=== PATIENT | female | born 1955 | race Caucasian/White ===

== ENCOUNTER 2022-09-15 08:45 | Emergency (ER) | payer MEDICARE, SELFPAY ==
--- NOTE | ~2022-09-15 | XR_ITS ---
EXAMINATION: XR CHEST CLINICAL INFORMATION: Cough COMPARISON: None available. TECHNIQUE: 2 views of the chest were obtained. FINDINGS: No significant abnormality is noted involving the heart, lungs, mediastinum, bony thorax or soft tissues. XR/XR chest 2V IMPRESSION: Unremarkable chest examination.
[2022-09-15 09:09] VITALS: BP 134/86; PULSE 91; RESP 19; TEMP 36.4; O2SAT 93; BMI 23.8
[2022-09-15 09:40] LABS: IDNOW Serial# 08D9AD1C; Strep A Nucleic Acid Negative (Negative)
[2022-09-15 10:06] LABS: Influenza A PCR NEGATIVE (Negative); Influenza B PCR NEGATIVE (Negative); Resp Syncy Virus RNA Qual PCR NEGATIVE (Negative); SARS COV2 PCR INHOUSE NEGATIVE (Negative)
--- NOTE | 2022-09-15 10:10 | ED.FEVER ---
HPI - Fever General Chief Complaint: Upper Respiratory Symptoms Stated Complaint: fever, sore throat Time Seen by Provider: 09/15/22 09:33 Source: patient Mode of arrival: ambulatory Limitations: no limitations History of Present Illness HPI Narrative: 66-year-old female with a history of COPD, tobacco smoking, hypertension presents to the ER with complaints of 1 week of sore throat, cough, body aches, subjective fevers, chills, headache and watery eye discharge bilaterally. No shortness of breath, chest pain, neck pain or neck stiffness. Related Data Home Medications Medication Instructions Recorded Confirmed hydrochlorothiazide 12.5 mg tablet 12.5 mg PO QAM 02/07/20 Previous Rx's Medication Instructions Recorded hydrochlorothiazide 12.5 mg tablet 12.5 mg PO QAM #90 tabs 06/07/20 albuterol sulfate 90 mcg/actuation 2 puff inhalation Q4-6H PRN 02/09/22 aerosol inhaler (ProAir HFA) shortness of breath or wheezing #1 ea azithromycin 250 mg tablet 250 mg PO DAILY 4 days #4 tabs 09/15/22 prednisone 20 mg tablet 60 mg PO DAILY #12 tabs 09/15/22 Allergies Allergy/AdvReac Type Severity Reaction Status Date / Time Penicillins [PENICILLINS] Allergy Severe THROAT Verified 09/15/22 09:09 SWELLING penicillin V Allergy Unknown throat Verified 09/15/22 09:09 swelling Review of Systems Review of Systems: Yes all other systems are reviewed and are negative Constitutional: Constitutional: Reports no additional constitutional complaints, Reports body ache(s), Reports chills, Reports fever(s), Reports headache(s) and Denies weakness Eyes: Eyes: Reports no additional eye complaints, Denies change in vision and Reports eye discharge ENT: Reports system reviewed and no additional complaints, except as documented, Denies dizziness, Reports headache(s), Denies nasal congestion, Denies nasal discharge, Denies neck pain and Reports sore throat Cardiovascular: Cardiovascular: Reports no additional cardiovascular complaints, Denies chest pain, Denies leg edema and Denies dyspnea Respiratory: Respiratory: Reports no additional respiratory complaints, Reports cough and Denies dyspnea Gastrointestinal: Gastrointestinal: Reports no additional gastrointestinal complaints, Denies abdominal pain, Denies diarrhea, Denies nausea and Denies vomiting Genitourinary: Genitourinary: Reports no additional female genitourinary complaints and Denies urinary incontinence Musculoskeletal: Musculoskeletal: Reports no additional musculoskeletal complaints, Denies back pain, Denies arthralgias, Denies joint swelling, Denies neck pain, Denies numbness and Denies tingling Integumentary/Breasts: Skin/Breast: Reports system reviewed and no additional complaints, except as docu and Denies rash Neurologic: Reports system reviewed and no additional complaints, except as documented, Denies Abnormal speech present, Denies dizziness, Reports headache(s), Denies numbness, Denies tingling and Denies weakness [facility] Past Medical History Attestation statement: The following information was validated with the patient. Source: old records reviewed and nursing notes reviewed Social History Social History Advance Directives: No Advance Directives Information Provided: Yes Physical Exam Vital Signs: Vital Signs: Last Vital Signs Temp 97.5 F 09/15/22 09:09 Pulse 91 09/15/22 09:09 Resp 19 09/15/22 09:09 BP 134/86 09/15/22 09:09 Pulse Ox 93 09/15/22 09:09 O2 Del Method Room Air 09/15/22 09:09 BMI result Body Mass Index 23.8 Const: General: cooperative, healthy appearing, comfortable and no acute distress Orientation/consciousness: patient oriented x3 Limitations: no limitations HEENT: Head: Yes normal to inspection Ears: hearing grossly normal bilaterally and TM's normal bilaterally General nose exam: Normal external nose present Face and sinus: Yes normal facial exam Mouth: Normal oral and palatal mucosa present Throat: Yes posterior oropharynx normal, Yes tonsils normal and Yes uvula midline Eyes: General: appearance normal, both eyes and all related structures Pupils: Equal, round and reactive pupils present Neck: Neck: Yes normal visual inspection, Yes full ROM, Yes no lymphadenopathy and Yes no meningeal signs Chest: Chest palpation & inspection: normal inspection of the chest Resp: Other: Mild expiratory wheezing Effort & Inspection: normal respiratory effort Cardio: Rate: regular rate Rhythm: regular rhythm Peripheral pulses: Peripheral pulses 2+ throughout GI: Inspection: Yes normal to inspection Palpation (GI): Soft to palpation and nontender Auscultation: normal bowel sounds Back/Spine/Pelvis: Thoracic/Lumbar Spine: thoracic and lumbar spine normal to inspection Skin: General skin exam: no rashes or lesions noted Neuro: General: patient oriented x3, no meningeal signs, no focal motor deficits and normal sensation to monofilament Cranial nerves: Yes Equal, round and reactive pupils present Cognition (Neuro): normal cognition Speech: No Abnormal speech present Gait exam (Neuro): Normal gait present Motor exam (neuro): 5/5 motor strength present throughout Extrem: General: Yes normal to inspection, Yes no pedal edema and Yes no calf tenderness Course Course Course Narrative: Testing for flu, COVID, strep were negative. Chest x-ray shows no acute pneumonia. Patient has mild expiratory wheezing on exam. She has a longstanding history of COPD and tobacco smoking. She may have bronchitis. Patient will be given albuterol MDI, course of prednisone and azithromycin. Reviewed worrisome signs and symptoms of when to return to the emergency room. Comfortable plan for discharge home. Medications Administered Discontinued Medications Generic Name Dose Route Start Last Admin Trade Name Freq PRN Reason Stop Dose Admin Albuterol Sulfate 2 puff 09/15/22 10:16 09/15/22 10:25 Albuterol Sulfate 90 Mcg 8 Gm Inhaler INHALE 09/15/22 10:17 2 puff ONCE ONE Administration Azithromycin 500 mg 09/15/22 10:16 09/15/22 10:24 Azithromycin 500 Mg Tablet PO 09/15/22 10:17 500 mg ONCE ONE Administration Prednisone 60 mg 09/15/22 10:16 09/15/22 10:24 Prednisone 20 Mg Tablet PO 09/15/22 10:17 60 mg ONCE ONE Administration Medical Decision Making Medical Decision Making [facility] Narrative: 66-year-old female with a history of COPD, tobacco smoking here with 1 week of cough, sore throat, subjective fevers, chills, headache, body aches, bilateral eye discharge supportive care at home. On exam patient mild expiratory wheezing. Exam otherwise is benign. Will send testing for flu, COVID, strep. Will check x-ray Differential Diagnosis Differential Diagnoses: The differential diagnosis associated with the presentation includes Bronchitis, pneumonia, influenza, viral syndrome, strep pharyngitis Low concern for meningitis, encephalitis, retropharyngeal abscess, epiglottitis, CALL CENTER SUPPORT CONSULTANT, PE-perc 0 Lab Data [facility] Lab Attestation statement: I reviewed the patient's lab results. Labs: Lab Results 09/15/22 09/15/22 Range/Units 09:22 09:22 Influenza Type A (PCR) NEGATIVE (Negative) Influenza Type B (PCR) NEGATIVE (Negative) RSV RNA Qual (PCR) NEGATIVE (Negative) SARS-CoV-2 RNA (RT-PCR) NEGATIVE (Negative) S. pyogenes GrpA MARTINA Negative (Negative) Independent Interpretation I performed an independent interpretation of an: Plain X-Ray Interpretation: I initially reviewed the x-ray and agree with radiologist's report Radiology Impression Discussion of test interpretation with radiology: I have reviewed the radiologist's reading. Radiologist Impression: [address] [address] XRay Report Signed Patient: Court Ha MR#: [id number] : 1955 Acct:[id number] Age/Sex: 66 / F ADM Date: 09/15/22 Loc: .ED Attending Dr: Ordering Physician: Generic ED Physician Date of Service: 09/15/22 Procedure(s): XR chest 2V Accession Number(s): [id number] cc: Generic ED Physician~ EXAMINATION: XR CHEST CLINICAL INFORMATION: Cough COMPARISON: None available. TECHNIQUE: 2 views of the chest were obtained. FINDINGS: No significant abnormality is noted involving the heart, lungs, mediastinum, bony thorax or soft tissues. XR/XR chest 2V IMPRESSION: Unremarkable chest examination. Discharge Plan Discharge Clinical Impression: Bronchitis Patient Disposition: Home, Self-Care Instructions: How to Use a Metered-Dose Inhaler (ED), Acute Bronchitis (ED) Additional Instructions: Testing for flu, COVID and strep are negative Your x-ray is normal Use the inhaler 2 puffs every 4 hours as needed for cough or wheezing Start your prednisone and azithromycin tomorrow Prescriptions: New azithromycin 250 mg tablet 250 mg PO DAILY 4 Days Qty: 4 0RF Rx Instructions: start on day 2 of therapy prednisone 20 mg tablet 60 mg PO DAILY Qty: 12 0RF No Action hydrochlorothiazide 12.5 mg tablet 12.5 mg PO QAM hydrochlorothiazide 12.5 mg tablet 12.5 mg PO QAM Qty: 90 1RF albuterol sulfate [ProAir HFA] 90 mcg/actuation HFA aerosol inhaler 2 puff inhalation Q4-6H PRN (Reason: shortness of breath or wheezing) Qty: 1 0RF Referrals: Lainer,Albert C, MD [Primary Care Provider] - 1 week
[2022-09-15] MEDS: predniSONE 20 MG TABLET 60 MG PO (10:24)
[2022-09-15] MEDS: Azithromycin 500 MG TABLET PO (10:24)
[2022-09-15] MEDS: Albuterol Sulfate 90 MCG 8 GM INHALER 2 PUFF INHALE (10:25)
== END 2022-09-15 10:30 | disposition home or self-care (01) ==
PROVIDERS: Emergency Provider Student in an Organized Health Care Education/Training Program; PCP Internal Medicine
DX: J40 Bronchitis, not specified as acute or chronic (principal); Z20.822 Contact with and (suspected) exposure to COVID-19; Z20.828 Contact with and (suspected) exposure to other viral communicable diseases; J02.9 Acute pharyngitis, unspecified
CPT/HCPCS: 0241U; 71046; 87651; 99282; 99284

== ENCOUNTER 2022-09-25 16:02 | Emergency (ER) | payer MEDICARE, SELFPAY ==
--- NOTE | ~2022-09-25 | XR_ITS ---
EXAMINATION: XR CHEST CLINICAL INFORMATION: Cough. COMPARISON: 09/15/2022 TECHNIQUE: 2 views of the chest were obtained. FINDINGS: The lungs are well expanded. No focal consolidation. No pleural effusion. Cardiac silhouette is unchanged. XR/XR chest 2V IMPRESSION: No acute abnormality.
[2022-09-25 16:04] VITALS: BP 159/82; PULSE 96; RESP 20; TEMP 36.2; O2SAT 96; BMI 24.0
--- NOTE | 2022-09-25 16:06 | ED.URI ---
HPI - URI/Sore Throat General Chief Complaint: Upper Respiratory Symptoms Stated Complaint: Bronchitis revisit/fever/cough Time Seen by Provider: 09/25/22 17:02 Source: patient Mode of arrival: ambulatory Limitations: no limitations History of Present Illness HPI Narrative: this is a 58-year-old female presenting to the emergency department for re-evaluation of upper respiratory symptoms, dry cough, fatigue, malaise, subjective fevers and chills, earache, diffuse headache without vision changes in dizziness, patient reports she was seen here on 09/15/2022 diagnosed with bronchitis discharge home with azithromycin and prednisone, initially had some relief however after she stopped taking these medications symptoms cameback. patient reports she is only feeling short of breath when she coughs however not at rest or with ambulation. Denies chest pain, nausea, vomiting, abdominal pain, vision changes, dizziness, weakness, changes in bowel habits. No sick contacts. Patient does report 2 weeks ago she had COVID-19 and was treated with Paxlovid NIHSS-0 Related Data Home Medications Medication Instructions Recorded Confirmed hydrochlorothiazide 12.5 mg tablet 12.5 mg PO QAM 02/07/20 Previous Rx's Medication Instructions Recorded hydrochlorothiazide 12.5 mg tablet 12.5 mg PO QAM #90 tabs 06/07/20 albuterol sulfate 90 mcg/actuation 2 puff inhalation Q4-6H PRN 02/09/22 aerosol inhaler (ProAir HFA) shortness of breath or wheezing #1 ea azithromycin 250 mg tablet 250 mg PO DAILY 4 days #4 tabs 09/15/22 prednisone 20 mg tablet 60 mg PO DAILY #12 tabs 09/15/22 albuterol sulfate 90 mcg/actuation 2 inh inhalation Q4-6H PRN 09/25/22 breath activated powder inhaler shortness of breath or wheezing #1 ea codeine 6.3 mg-guaifenesin 100 10 ml PO Q4-6H PRN cough #473 mL 09/25/22 mg/5 mL oral liquid doxycycline hyclate 100 mg capsule 100 mg PO BID 10 days #20 caps 09/25/22 prednisone 20 mg tablet 20 mg PO DAILY 5 days #5 tabs 09/25/22 Allergies Allergy/AdvReac Type Severity Reaction Status Date / Time Penicillins [PENICILLINS] Allergy Severe THROAT Verified 09/25/22 16:10 SWELLING penicillin V Allergy Unknown throat Verified 09/25/22 16:10 swelling Review of Systems Review of Systems: Constitutional : No Weight loss, + Fever, + Chills, + Fatigue, + Malaise ENT/Mouth : No sore throat, No Rhinorrhea, + ear pain Eyes: No Eye Pain, No Swelling, No Redness Cardiovascular : No Chest Pain, No SOB, No Dyspnea on Exertion, No Orthopnea, No Edema, No Palpitations Respiratory : + Cough, No Sputum, No Wheezing Gastrointestinal : No Nausea, No Vomiting, No Diarrhea, No Constipation, No abdominal Pain, No Hematochezia, No Melena Genitourinary : No Dysuria, No Urinary Frequency, No Hematuria, Musculoskeletal : No joint pain, No Myalgias, No Joint Swelling Skin : No Skin Lesions, No rash Neuro : No Weakness, No Numbness, No Dizziness, + Headache Psych : No Anxiety/Panic, No Depression Heme/Lymph: No Bruising, No Bleeding,No Lymphadenopathy Endocrine : No Polyuria, No Polydipsia All other systems reviewed and are negative Yes all other systems are reviewed and are negative [facility] Past Medical History Attestation statement: The following information was validated with the patient. Source: old records reviewed and nursing notes reviewed Physical Exam Vital Signs: Vital Signs: Last Vital Signs Temp 97.2 F 09/25/22 16:04 Pulse 96 09/25/22 16:04 Resp 20 09/25/22 16:04 BP 159/82 H 09/25/22 16:04 Pulse Ox 96 09/25/22 16:04 O2 Del Method Room Air 09/25/22 16:04 BMI result Body Mass Index 24.0 vss Appearance: Alert.? Oriented X3.? No acute distress.? Head: Normocephalic, atraumatic, no step-offs or deformities Eyes: Pupils equal, round and reactive to light.? ENT: Normal pharynx. EC and TM WNL b/l. No erythema, edema, effusions. No mastoid tenderness. Neck: full painless range of motion, no meningeal signs. CVS: Normal heart rate and rhythm.? Pulses normal.? Respiratory: No respiratory distress.? Breath sounds normal.? Abdomen: Soft and nontender.? Skin: Skin warm and dry.? Normal skin color.? Normal skin turgor.? Extremities: No lower extremity edema.? No calf ttp, negative amaris b/l. 5/5 strength to bilateral upper and lower extremities Neuro: Oriented X 3.? No motor deficit.? No sensory deficit. CN 2-12 intact. Normal auavct-ac-ccio, iwma-qr-bisb, steady tandem gait normal coordination. Course Course Course Narrative: RME: 66-year-old female with a history of COPD, tobacco smoking, hypertension, recently tx for Bronchitis in our ED on 09/15, finished course of Z-Kenrick and Prednisone w/little relief presents to the ED c/o left sided ear pain/clogged, subjective fever, productive cough, SOB x3 days TMs WNL, Lungs CTA, coarse cough noted on exam COVID/FLU, CXR ordered Full HPI, ROS and PE to be performed by primary ED provider. Reevaluation(s) Reevaluation #1: Chest x-ray unremarkable. COVID and influenza negative. Will treat patient for bacterial bronchitis with doxycycline and albuterol inhaler. No need for additional prednisone at this time. Patient is saturating well on room air 95% even after ambulation. Unlikely that this is PE. I suspect this is bronchitis. Educated patient on diagnosis and treatment plan, answered all question, patient verbalizes understanding. At this time patient will be discharged home, advised to return with new or worsening symptoms. Educated on worrisome signs and symptoms and when to return. At this time I feel comfortable discharge home. Time: 17:20 Medical Decision Making Medical Decision Making [facility] Narrative: 1704 66-year-old female presents for worsening cough, fatigue, malaise, earache, shortness of breath, headache, subjective fevers and chills, was treated with a Z-Kenrick, prednisone a few days ago with little to no relief. Physical examination benign. Likely bronchitis vs post covid . I do not suspect PE, patient not hypoxic, tachypneic or tachycardic, no significant risk factors. Unlikely pneumothorax, flail chest. No signs of acute respiratory distress. Unlikely typical presentation of ACS. Headache likely took focal headache, neuro nonfocal, unlikely stroke, posterior stroke, intracranial hemorrhage likely secondary to viral illness or bronchitis. No signs of malignant otitis, mastoiditis, otitis media or externa. No signs of meningitis or encephalitis. Plan at this time viral testing an x-ray. Differential Diagnosis Differential Diagnoses: The differential diagnosis associated with the presentation includes Likely bronchitis vs postt covid . I do not suspect PE, patient not hypoxic, tachypneic or tachycardic, no significant risk factors. Unlikely pneumothorax, flail chest. No signs of acute respiratory distress. Unlikely typical presentation of ACS. Headache likely took focal headache, neuro nonfocal, unlikely stroke, posterior stroke, intracranial hemorrhage likely secondary to viral illness or bronchitis. No signs of malignant otitis, mastoiditis, otitis media or externa. No signs of meningitis or encephalitis. Admission/Observation Consideration of admission/observation: Escalation of care including admission/observation considered Not indicated Lab Data MDM Lab Attestation statement: I reviewed the patient's lab results. Labs: Lab Results 09/25/22 09/25/22 Range/Units 16:21 16:21 COVID-19 (TARYN) Negative (Negative) COVID-19 Clin Com See Note Influenza Type A (MARTINA) Negative (Negative) Influenza Type B (MARTINA) Negative (Negative) Influenza A & B Note See Note Independent Interpretation I performed an independent interpretation of an: Plain X-Ray (XR/XR chest 2V IMPRESSION: No acute abnormality.) Radiology Impression Discussion of test interpretation with radiology: I have reviewed the radiologist's reading. Core Measures AMI core measures followed: Yes Measure exclusions: not indicated Critical Care Time Critical Care Time Critical Care Time: No Discharge Plan Discharge Clinical Impression: Bronchitis, Long COVID Patient Disposition: Home, Self-Care Instructions: Chronic Bronchitis (ED) Additional Instructions: Take your medications as prescribed. If you were prescribed antibiotics today, it is important that you take your medication to their entirety, do not skip any doses, do not finish them early. Follow-up with your primary care provider this week. Return to the emergency department with new or worsening symptoms. Such as fevers, chills, chest pain, shortness of breath, nausea, vomiting, dizziness, headache, vision changes, lethargy In case of emergency call 911 Prescriptions: New doxycycline hyclate 100 mg capsule 100 mg PO BID 10 Days Qty: 20 0RF albuterol sulfate 90 mcg/actuation aerosol powdr breath activated 2 inh inhalation Q4-6H PRN (Reason: shortness of breath or wheezing) Qty: 1 0RF codeine-guaifenesin 6.3-100 mg/5 mL liquid 10 ml PO Q4-6H PRN (Reason: cough) Qty: 473 0RF Rx Instructions: Partial fill upon request prednisone 20 mg tablet 20 mg PO DAILY 5 Days Qty: 5 0RF No Action hydrochlorothiazide 12.5 mg tablet 12.5 mg PO QAM hydrochlorothiazide 12.5 mg tablet 12.5 mg PO QAM Qty: 90 1RF albuterol sulfate [ProAir HFA] 90 mcg/actuation HFA aerosol inhaler 2 puff inhalation Q4-6H PRN (Reason: shortness of breath or wheezing) Qty: 1 0RF azithromycin 250 mg tablet 250 mg PO DAILY 4 Days Qty: 4 0RF Rx Instructions: start on day 2 of therapy prednisone 20 mg tablet 60 mg PO DAILY Qty: 12 0RF Referrals: [facility] [Provider Group] - 1 week Physician,Unknown J [Primary Care Provider] - 2 days
--- NOTE | 2022-09-25 16:22 | MHC.EDTECH ---
PATIENT FLU AND COVID SWAB COLLECTED AND SENT TO LAB .
[2022-09-25 16:49] LABS: IDNOW Serial# 16C4AD1C
[2022-09-25 16:50] LABS: COVID-19 Test Negative (Negative); Influenza A Negative (Negative); Influenza B2 Negative (Negative)
--- NOTE | 2022-09-25 17:24 | MHC.EDTECH ---
PATIENT WAS AMBULATED FOR O2 AMBULATION TRIAL .PATIENT WAS 95 PERCENT PRIOR AND 95 PERCENT AFTER AMBULATION.PATIENT HAD NO COMPLAINTS.
== END 2022-09-25 17:47 | disposition home or self-care (01) ==
LOC: HO.ED 17:42
PROVIDERS: Physician Assistant; Emergency Provider Emergency Medicine
DX: J40 Bronchitis, not specified as acute or chronic (principal); U09.9 Post COVID-19 condition, unspecified; Z20.822 Contact with and (suspected) exposure to COVID-19; F17.200 Nicotine dependence, unspecified, uncomplicated
CPT/HCPCS: 71046; 87502; 87635; 99282; 99283

== ENCOUNTER 2022-11-22 08:33 | Emergency (ER) | payer OTHER, SELFPAY ==
--- NOTE | ~2022-11-22 | XR_ITS ---
EXAMINATION: XR CHEST CLINICAL INFORMATION: Pain following fall COMPARISON: 09/25/2022 TECHNIQUE: Frontal view of the chest was obtained. FINDINGS: No significant abnormality is noted involving the heart, lungs, mediastinum, bony thorax or soft tissues. XR/XR chest 1V IMPRESSION: Unremarkable examination.
--- NOTE | ~2022-11-22 | CT_ITS ---
EXAMINATION: CT HEAD WITHOUT CONTRAST CT FACE WITHOUT CONTRAST CT CERVICAL SPINE WITHOUT CONTRAST CLINICAL INFORMATION: Fall. Facial trauma. Head injury. Neck pain. COMPARISON: CT head 12/07/2013. TECHNIQUE: Supervisory Historian images were obtained. CT imaging of the head, face, and cervical spinal was performed without contrast. Data was reformatted into multiplanar images at the acquisition workstation. This CT examination was performed using dose optimization techniques as appropriate, including one or more of the following: Automated exposure control, iterative reconstruction, and adjustment of technique factors (mA and/or kVp) according to patient size (this includes techniques or standardized protocols for targeted exams where dose is matched to indication/reason for exam). Fleischner Society criteria for the followup of incidental pulmonary nodules was implemented if appropriate. DLP: 1278 mGy-cm. FINDINGS: Head: There is no acute intracranial hemorrhage or abnormal extra-axial collection. 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 No acute intracranial hemorrhage or abnormal extra-axial collection. No intracranial mass effect or midline shift. Lateral and third ventricles are normal. No hydrocephalus. Sharif-white matter differentiation is preserved and there is no evidence of acute territorial infarct. Calvarium and skull base are intact. Mastoid air cells and middle ear cavities are well-aerated. Face: There is periorbital soft tissue swelling. No evidence of a retained radiodense foreign body. Nasal bones, zygomatic arches, and pterygoid processes are intact. No acute mandibular fracture. There is a retention cyst within the alveolar recess of the right maxillary sinus. Mild mucosal thickening within the maxillary sinuses and ethmoid air cells. Otherwise no active paranasal sinus disease. All of the major paranasal sinus drainage pathways are patent. The nasal septum deviates to the left. Globes and extraocular muscles are symmetric. No abnormal retrobulbar inflammation or hematoma. Cervical spine: There is slight anterolisthesis of C3 on C4 and C7 on T1 that appears related to facet degenerative changes at these levels. Alignment is otherwise normal. Vertebral heights are preserved. No acute cervical spine fracture. Grossly no spinal canal compromise. Visualized soft tissues of the neck are normal. Grossly no pathologically enlarged cervical lymph nodes. Lung apices are clear. CT/CT facial bones wo IV con IMPRESSION: There is periorbital soft tissue swelling. No acute facial fracture. No acute intracranial hemorrhage. There is no acute cervical spine fracture. There is multilevel degenerative spondylosis of the cervical spine with slight anterolisthesis of C3 on C4 and C7 on T1 related to facet degenerative changes at these levels.
--- NOTE | 2022-11-22 08:57 | ED_ITS ---
HPI - General Adult General Chief complaint: Fall Stated complaint: Facial Injury S/P Fall 11/20/22 Time Seen by Provider: 11/22/22 08:53 Source: patient Mode of arrival: ambulatory Limitations: no limitations History of Present Illness HPI narrative: 67 year old female medical history?COPD, tobacco smoking, hypertension, presents to the emergency department status post fall 2 days ago, patient and sure how she fell, she states she was leaving the bar after having 4 drinks, and she felt like her body was jellowy . She states she fell forward face planting, not on blood thinners, no loss of consciousness. Not experiencing any pain she states she was prompted to come in today because when she woke up and looked at her face she looked like she had raccoon eyes . She has no medical complaints. NIH stroke scale 0 GCS 15 Related Data Home Medications Medication Instructions Recorded Confirmed hydrochlorothiazide 12.5 mg tablet 12.5 mg PO QAM 02/07/20 Previous Rx's Medication Instructions Recorded hydrochlorothiazide 12.5 mg tablet 12.5 mg PO QAM #90 tabs 06/07/20 albuterol sulfate 90 mcg/actuation 2 puff inhalation Q4-6H PRN 02/09/22 aerosol inhaler (ProAir HFA) shortness of breath or wheezing #1 ea azithromycin 250 mg tablet 250 mg PO DAILY 4 days #4 tabs 09/15/22 prednisone 20 mg tablet 60 mg PO DAILY #12 tabs 09/15/22 albuterol sulfate 90 mcg/actuation 2 inh inhalation Q4-6H PRN 09/25/22 breath activated powder inhaler shortness of breath or wheezing #1 ea doxycycline hyclate 100 mg capsule 100 mg PO BID 10 days #20 caps 09/25/22 prednisone 20 mg tablet 20 mg PO DAILY 5 days #5 tabs 09/25/22 codeine 10 mg-guaifenesin 100 mg/5 5 ml PO Q6H PRN cough 3 days #60 mL 09/26/22 mL oral liquid Allergies Allergy/AdvReac Type Severity Reaction Status Date / Time Penicillins [PENICILLINS] Allergy Severe THROAT Verified 09/25/22 16:10 SWELLING penicillin V Allergy Unknown throat Verified 09/25/22 16:10 swelling Review of Systems Review of Systems: Constitutional : No Weight loss, No Fever, No Chills, No Fatigue, No Malaise ENT/Mouth : No sore throat, No Rhinorrhea Eyes: No Eye Pain, No Swelling, No Redness Cardiovascular : No Chest Pain, No SOB, No Dyspnea on Exertion, No Orthopnea, No Edema, No Palpitations Respiratory : No Cough, No Sputum, No Wheezing Gastrointestinal : No Nausea, No Vomiting, No Diarrhea, No Constipation, No abdominal Pain, No Hematochezia, No Melena Genitourinary : No Dysuria, No Urinary Frequency, No Hematuria, Musculoskeletal : No joint pain, No Myalgias, No Joint Swelling Skin : No Skin Lesions, No rash Neuro : No Weakness, No Numbness, No Dizziness, No Headache Psych : No Anxiety/Panic, No Depression All other systems reviewed and are negative Yes all other systems are reviewed and are negative [facility] Past Medical History Attestation statement: The following information was validated with the patient. Source: old records reviewed and nursing notes reviewed Social History Social History Advance Directives: No Advance Directives Information Provided: No Physical Exam ED Vital Signs: Vital Signs - 24 hr 11/22/22 08:59 Temperature 97.9 F Pulse Rate 82 Respiratory Rate 18 Blood Pressure 179/91 H Pulse Oximetry 94 Oxygen Delivery Method Room Air BMI result Body Mass Index 23.8 vss Appearance: Alert.? Oriented X3.? No acute distress.? Head: Normocephalic, atraumatic, no step-offs or deformities Eyes: Pupils equal, round and reactive to light.?+ b/l periorbital eccymosis w/ abrasions. EOMI pain free no signs of entrapment ENT: Pharynx normal.?+ abrasions to nose no nasalseptal hematoma Neck: Normal inspection.? Neck supple.? CVS: Normal heart rate and rhythm.? Pulses normal.? Respiratory: No respiratory distress.? Breath sounds normal.? Abdomen: Soft and nontender.? Skin: Skin warm and dry.? Normal skin color.? Normal skin turgor.? Extremities: No lower extremity edema.? No calf ttp. 5/5 strength to bilateral upper and lower extremities Neuro: Oriented X 3.? No motor deficit.? No sensory deficit. CN 2-12 intact Course Reevaluation(s) Reevaluation #1: Seventy CBC appears to be within normal limits. Chest x-ray unremarkable. EKG nonischemic. Chemistry pending. Facial scans pending. Time: 10:26 Reevaluation #2: Chemistry with no acute findings requiring intervention, bilirubin 1.6 likely secondary to alcohol abuse however no abdominal pain or tenderness to palpation on exam. Troponin negative, patient heart score of 1, EKG nonischemic unlikely ACS. History and physical exam not consistent with PE. Chest x-ray unremarkable. CT head, neck and facial bones significant for periorbital soft tissue swelling, no acute fractures. No acute intracranial hemorrhage. No acute cervical spine fractures. Degenerative spondylosis is noted of the cervical spine. Patient made aware of these findings. To be discharged home. Will give a Boostrix shot. Educated patient on diagnosis and treatment plan, answered all question, patient verbalizes understanding. At this time patient will be discharged home, advised to return with new or worsening symptoms. Educated on worrisome signs and symptoms and when to return. At this time I feel comfortable discharge home. Time: 10:46 Medications Administered Discontinued Medications Generic Name Dose Route Start Last Admin Trade Name Joy PRN Reason Stop Dose Admin Bacitracin 3 appl 11/22/22 09:18 11/22/22 10:04 Bacitracin Oint 0.9 Gm Packet TOPICAL 11/22/22 09:19 3 appl ONCE ONE Administration Protocol Diphtheria/Tetanus/Acell Pertussis 0.5 ml 11/22/22 10:44 11/22/22 10:54 Diphth,Pertus(Acell),Tet Adult 0.5 Ml Syringe IM 11/22/22 10:45 0.5 ml .ONCE ONE Administration Medical Decision Making Medical Decision Making [facility] Narrative: 0858 67-year-old female presents status post fall 2 days ago. No medical complaint Physical exam significant for b/l periorbital eccymosis w/ abrasions. EOMI pain free no signs of entrapment also noted to have abrasions to nose. Regular rate and rhythm. Lungs clear. Abdomen soft nontender, nondistended. GCS 15 NIH stroke scale 0. Will rule out traumatic injury to head, neck, facial bones. Unlikely traumatic injury to chest, abdomen or pelvis. Unlikely PE, ACS. Patient likely fell secondary to alcohol intoxication/mechanical fall. I do not suspect metabolic derangements however will rule out. Plan at this time will apply bacitracin to patient's face. Obtain it facial scans in head and neck scan. Also obtain basic labs. Differential Diagnosis Differential Diagnoses: The differential diagnosis associated with the presentation includes Will rule out traumatic injury to head, neck, facial bones. Unlikely traumatic injury to chest, abdomen or pelvis. Unlikely PE, ACS. Patient likely fell secondary to alcohol intoxication/mechanical fall. I do not suspect metabolic d erangements however will rule out. Admission/Observation Consideration of admission/observation: Escalation of care including admission/observation considered unlikely Lab Data MDM Lab Attestation statement: I reviewed the patient's lab results. 11/22/22 09:58 11/22/22 09:58 Labs: Lab Results 11/22/22 11/22/22 11/22/22 Range/Units 09:58 09:58 09:58 WBC 6.1 (4.8-10.8) X10*3/uL RBC 4.61 (4.20-5.50) X10*6/uL Hgb 14.7 (12.0-16.0) g/dl Hct 44.4 (37.0-47.0) % MCV 96.3 (80.0-98.0) fL MCH 31.9 (27.0-33.0) pg MCHC 33.1 (31.0-35.0) g/dl RDW 13.5 (11.0-16.0) % Plt Count 190 (160-400) X10*3/uL MPV 10.1 (9.4-12.3) fL Immature Gran % (Auto) 0.2 (0.0-0.4) % Neut % (Auto) 64.0 (45-73) % Lymph % (Auto) 25.4 (20-40) % [place] % (Auto) 9.1 (2-11) % Eos % (Auto) 1.0 (0-4) % Baso % (Auto) 0.3 (0-2) % Lymph # (Auto) 1.5 (1.2-4.9) X10*3/uL [place] # (Auto) 0.6 (0.1-1.2) X10*3/uL Eos # (Auto) 0.1 (0.0-0.4) X10*3/uL Baso # (Auto) 0.0 (0.0-0.2) X10*3/uL Abs Immat Gran (auto) 0.01 (0.00-0.03) X10*3/uL Absolute Neuts (auto) 3.9 (2.0-8.3) x10*3/uL Absolute Nucleated RBC 0.000 (0.0-0.012) X10*3/uL Nucleated RBC % (auto) 0.0 (0.0-0.2) /100WBC Sodium 144 (135-145) mmol/L Potassium 4.3 (3.3-5.1) mmol/L Chloride 109 H (96-108) mmol/L Carbon Dioxide 26 (22-29) mmol/L Anion Gap 13 (12-20) BUN 13 (9-16) mg/dL Creatinine 0.77 (0.5-1.4) mg/dL Estim Creat Clear Calc 67.0 Estimated GFR > 60 Random Glucose 128 H (60-115) mg/dL Calcium 9.1 (8.4-10.2) mg/dL Magnesium 2.0 (1.6-2.6) mg/dL Total Bilirubin 1.6 H (0.0-1.0) mg/dL AST 19 (5-31) U/L ALT 14 (0-31) U/L Alkaline Phosphatase 89 (39-117) U/L Troponin I High Sens < 2.7 (<3.5-17.0) ng/L Total Protein 6.6 (6.5-8.0) g/dL Albumin 4.0 (3.5-5.0) g/dL Urine Color Urine Appearance Urine pH (5.0-9.0) Ur Specific [place] (1.005-1.025) Urine Protein (Neg-Trace) mg/dL Urine Glucose (UA) (Negative) mg/dL Urine Ketones (Negative) mg/dL Urine Blood (Negative) Urine Nitrite (Negative) Ur Leukocyte Esterase (Negative) Urine RBC (0-2) /HPF Urine WBC (0-5) /HPF Ur Squamous Epith Cells (0-2) /HPF Urine Bacteria (None Seen) Hyaline Casts (0-2) /LPF 11/22/22 Range/Units 10:15 WBC (4.8-10.8) X10*3/uL RBC (4.20-5.50) X10*6/uL Hgb (12.0-16.0) g/dl Hct (37.0-47.0) % MCV (80.0-98.0) fL MCH (27.0-33.0) pg MCHC (31.0-35.0) g/dl RDW (11.0-16.0) % Plt Count (160-400) X10*3/uL MPV (9.4-12.3) fL Immature Gran % (Auto) (0.0-0.4) % Neut % (Auto) (45-73) % Lymph % (Auto) (20-40) % [place] % (Auto) (2-11) % Eos % (Auto) (0-4) % Baso % (Auto) (0-2) % Lymph # (Auto) (1.2-4.9) X10*3/uL [place] # (Auto) (0.1-1.2) X10*3/uL Eos # (Auto) (0.0-0.4) X10*3/uL Baso # (Auto) (0.0-0.2) X10*3/uL Abs Immat Gran (auto) (0.00-0.03) X10*3/uL Absolute Neuts (auto) (2.0-8.3) x10*3/uL Absolute Nucleated RBC (0.0-0.012) X10*3/uL Nucleated RBC % (auto) (0.0-0.2) /100WBC Sodium (135-145) mmol/L Potassium (3.3-5.1) mmol/L Chloride (96-108) mmol/L Carbon Dioxide (22-29) mmol/L Anion Gap (12-20) BUN (9-16) mg/dL Creatinine (0.5-1.4) mg/dL Estim Creat Clear Calc Estimated GFR Random Glucose (60-115) mg/dL Calcium (8.4-10.2) mg/dL Magnesium (1.6-2.6) mg/dL Total Bilirubin (0.0-1.0) mg/dL AST (5-31) U/L ALT (0-31) U/L Alkaline Phosphatase (39-117) U/L Troponin I High Sens (<3.5-17.0) ng/L Total Protein (6.5-8.0) g/dL Albumin (3.5-5.0) g/dL Urine Color Yellow Urine Appearance Clear Urine pH 6.0 (5.0-9.0) Ur Specific [place] 1.020 (1.005-1.025) Urine Protein 30 (1+) H (Neg-Trace) mg/dL Urine Glucose (UA) Negative (Negative) mg/dL Urine Ketones Negative (Negative) mg/dL Urine Blood Trace H (Negative) Urine Nitrite Negative (Negative) Ur Leukocyte Esterase Trace H (Negative) Urine RBC 6-10 H (0-2) /HPF Urine WBC 0-5 (0-5) /HPF Ur Squamous Epith Cells 11-20 (0-2) /HPF Urine Bacteria 1+ (None Seen) Hyaline Casts 0-2 (0-2) /LPF Independent Interpretation I performed an independent interpretation of an: EKG (Ventricular rate of 71, [place] normal, QRS normal, QT/QTC normal. EKG with sinus rhythm with premature ventricular complexes frequently, no ST elevations or inversions concerning for acute ischemia.), Plain X-Ray (XR/XR chest 1V IMPRESSION: Unremarkable exami nation. ) and CT Scan Radiology Impression Discussion of test interpretation with radiology: I have reviewed the radiologist's reading. Core Measures AMI core measures followed: Yes Measure exclusions: not indicated Critical Care Time Critical Care Time Critical Care Time: No Discharge Plan Discharge Clinical Impression: Concussion without loss of consciousness, Fall, Traumatic periorbital ecchymosis, Abrasion Patient Disposition: Home, Self-Care Instructions: Concussion (ED), Post Concussion Syndrome (ED), Fall Prevention (ED) Additional Instructions: Take your medications as prescribed. If you were prescribed antibiotics today, it is important that you take your medication to their entirety, do not skip any doses, do not finish them early. Follow-up with your primary care provider this week. Return to the emergency department with new or worsening symptoms. Such as fevers, chills, chest pain, shortness of breath, nausea, vomiting, dizziness, headache, vision changes, lethargy In case of emergency call 911 CT/CT head/brain & face & c spine wo IV con IMPRESSION: There is periorbital soft tissue swelling. No acute facial fracture. No acute intracranial hemorrhage. There is no acute cervical spine fracture. There is multilevel degenerative spondylosis of the cervical spine with slight anterolisthesis of C3 on C4 and C7 on T1 related to facet degenerative changes at these levels. XR/XR chest 1V IMPRESSION: Unremarkable examination. ? Prescriptions: No Action hydrochlorothiazide 12.5 mg tablet 12.5 mg PO QAM hydrochlorothiazide 12.5 mg tablet 12.5 mg PO QAM Qty: 90 1RF albuterol sulfate [ProAir HFA] 90 mcg/actuation HFA aerosol inhaler 2 puff inhalation Q4-6H PRN (Reason: shortness of breath or wheezing) Qty: 1 0RF azithromycin 250 mg tablet 250 mg PO DAILY 4 Days Qty: 4 0RF Rx Instructions: start on day 2 of therapy prednisone 20 mg tablet 60 mg PO DAILY Qty: 12 0RF doxycycline hyclate 100 mg capsule 100 mg PO BID 10 Days Qty: 20 0RF albuterol sulfate 90 mcg/actuation aerosol powdr breath activated 2 inh inhalation Q4-6H PRN (Reason: shortness of breath or wheezing) Qty: 1 0RF prednisone 20 mg tablet 20 mg PO DAILY 5 Days Qty: 5 0RF codeine-guaifenesin 10-100 mg/5 mL liquid 5 ml PO Q6H PRN (Reason: cough) 3 Days Qty: 60 0RF Referrals: Physician,None [Primary Care Provider] - 2 days Stand Alone Forms: Work/School Release Interventions: ED Discharge Assessment Last Done: 11/22/22 11:05
[2022-11-22 08:59] VITALS: BP 179/91; PULSE 82; RESP 18; TEMP 36.6; O2SAT 94; BMI 23.8
--- NOTE | 2022-11-22 09:18 | ECG_ITS ---
Test Reason : FALL Blood Pressure : / mmHG Vent. Rate : 071 BPM Atrial Rate : 071 BPM P-R Int : 156 ms QRS Dur : 092 ms QT Int : 408 ms P-R-T Axes : 061 030 072 degrees QTc Int : 443 ms Sinus rhythm with frequent Premature ventricular complexes Otherwise normal ECG When compared with ECG of 09-MAY-2019 10:18, Premature ventricular complexes are now Present Referred By: Michael Lopez Electronically Signed By:JOSETTE SWAN
[2022-11-22 10:04] LABS: MANUAL DIFF FLAG NO
[2022-11-22] MEDS: Bacitracin Oint 0.9 GM PACKET 3 APPL TOPICAL (10:04)
[2022-11-22 10:11] LABS: Basophils Percent Auto 0.3 % (0-2); Eosinophils Absolute Auto 0.1 X10*3/uL (0.0-0.4); Hematocrit 44.4 % (37.0-47.0); Hemoglobin 14.7 g/dl (12.0-16.0); Imm Gran Abs Auto 0.01 X10*3/uL (0.00-0.03); Imm Gran Pct Auto 0.2 % (0.0-0.4); Lymphocytes Absolute Auto 1.5 X10*3/uL (1.2-4.9); Lymphocytes Percent Auto 25.4 % (20-40); Mean Corpuscular HGB Conc 33.1 g/dl (31.0-35.0); Mean Corpuscular Hemoglobin 31.9 pg (27.0-33.0); Mean Corpuscular Volume 96.3 fL (80.0-98.0); Mean Platelet Volume 10.1 fL (9.4-12.3); Monocytes Absolute Auto 0.6 X10*3/uL (0.1-1.2); Monocytes Percent Auto 9.1 % (2-11); Neutrophils Absolute Auto 3.9 x10*3/uL (2.0-8.3); Platelet Count 190 X10*3/uL (160-400); Red Blood Count 4.61 X10*6/uL (4.20-5.50); Red Cell Distribution Width 13.5 % (11.0-16.0); White Blood Count 6.1 X10*3/uL (4.8-10.8)
[2022-11-22 10:23] LABS: Appearance Urine Clear; Color Urine Yellow; Glucose Urine UA Negative (Negative); Leukocyte Esterase Urine Trace (Negative); Nitrite Urine Negative (Negative); UMIC TRIGGER UACC YES; Urine Blood Trace (Negative); Urine Ketones Negative (Negative); Urine Protein 30 (1+) mg/dL (Neg-Trace)
[2022-11-22 10:29] LABS: Bacteria Urine 1+ (None Seen); Hyaline Casts Urine 0-2 /LPF (0-2); WBC Urine 0-5 /HPF (0-5)
[2022-11-22 10:34] LABS: Alanine Aminotransferase 14 U/L (0-31); Alkaline Phosphatase 89 U/L (39-117); Anion Gap 13 (12-20); Aspartate Amino Transferase 19 U/L (5-31); Bilirubin Total 1.6 mg/dL (0.0-1.0); Blood Urea Nitrogen 13 mg/dL (9-16); Calcium 9.1 mg/dL (8.4-10.2); Carbon Dioxide 26 mmol/L (22-29); Chloride 109 mmol/L (96-108); Estimated Glomerular Filt Rate > 60; Glucose Random 128 mg/dL (60-115); Potassium 4.3 mmol/L (3.3-5.1); Sodium 144 mmol/L (135-145); Total Protein 6.6 g/dL (6.5-8.0)
[2022-11-22 10:44] LABS: Troponin-I High Sensitivity < 2.7 ng/L (<3.5-17.0)
[2022-11-22] MEDS: Diphth,Pertus(ACell),Tet Adult 0.5 ML SYRINGE IM (10:54)
== END 2022-11-22 11:05 | disposition home or self-care (01) ==
PROVIDERS: Physician Assistant; Emergency Provider Emergency Medicine Emergency Medical Services
DX: S06.0X0A Concussion without loss of consciousness, initial encounter (principal); S00.81XA Abrasion of other part of head, initial encounter; R51.9 Headache, unspecified; R07.89 Other chest pain; M54.2 Cervicalgia; W01.10XA Fall on same level from slipping, tripping and stumbling with subsequent striking against unspecified object, initial encounter; Y93.9 Activity, unspecified; Y92.9 Unspecified place or not applicable; Y99.9 Unspecified external cause status; Z79.899 Other long term (current) drug therapy; Z23 Encounter for immunization
CPT/HCPCS: 36415; 70450; 70486; 71045; 72125; 80053; 81001; 83735; 84484; 85025; 90471; 90715; 93005; 99283; 99284

== ENCOUNTER 2023-12-05 18:38 | Emergency (ER) | payer OTHER, SELFPAY ==
--- NOTE | ~2023-12-05 | XR_ITS ---
EXAMINATION: XR CHEST CLINICAL INFORMATION: Cough. Shortness of breath. COMPARISON: Chest x-ray November 22, 2022 TECHNIQUE: Frontal view of the chest was obtained. FINDINGS: Lungs are clear. No pulmonary vascular congestion. There is no pleural effusion. The heart size is normal. The cardiac and mediastinal contours are normal. There are multilevel degenerative changes of dorsal spine. XR/XR chest 1V IMPRESSION: Unremarkable examination. Electronically signed by: Dima Galindo MD 12/05/2023 10:43 PM EDT
[2023-12-05 18:46] VITALS: BP 174/100; PULSE 98; RESP 18; TEMP 36.6; O2SAT 96; BMI 22.9
--- NOTE | 2023-12-05 18:46 | ECG_ITS ---
Test Reason : sob Blood Pressure : / mmHG Vent. Rate : 084 BPM Atrial Rate : 084 BPM P-R Int : 154 ms QRS Dur : 080 ms QT Int : 376 ms P-R-T Axes : 071 050 082 degrees QTc Int : 444 ms Normal sinus rhythm Normal ECG When compared with ECG of 22-NOV-2022 09:52, Premature ventricular complexes are no longer Present Referred By: Kerry Rea Electronically Signed By:JOSETTE SWAN
--- NOTE | 2023-12-05 18:46 | ED_ITS ---
HPI - General Adult General Chief complaint: Dyspnea Stated complaint: diff breathing Time Seen by Provider: 12/05/23 21:27 Source: patient Mode of arrival: ambulatory Limitations: no limitations History of Present Illness ED Provider: disha OLVERA narrative: Patient's history of COPD still a smoker complaining of increased shortness a breath cough for last few days getting worse cough is mostly dry no fever no chills no other family member sick Related Data Home Medications ?Medication ?Instructions ?Recorded ?Confirmed hydrochlorothiazide 12.5 mg tablet 12.5 mg PO QAM 02/07/20 Previous Rx's ?Medication ?Instructions ?Recorded hydrochlorothiazide 12.5 mg tablet 12.5 mg PO QAM #90 tabs 06/07/20 albuterol sulfate 90 mcg/actuation 2 puff inhalation Q4-6H PRN 02/09/22 aerosol inhaler (ProAir HFA) shortness of breath or wheezing #1 ea azithromycin 250 mg tablet 250 mg PO DAILY 4 days #4 tabs 09/15/22 prednisone 20 mg tablet 60 mg (3 x 20 mg) PO DAILY #12 tabs 09/15/22 albuterol sulfate 90 mcg/actuation 2 inh inhalation Q4-6H PRN 09/25/22 breath activated powder inhaler shortness of breath or wheezing #1 ea doxycycline hyclate 100 mg capsule 100 mg PO BID 10 days #20 caps 09/25/22 prednisone 20 mg tablet 20 mg PO DAILY 5 days #5 tabs 09/25/22 codeine 10 mg-guaifenesin 100 mg/5 5 ml PO Q6H PRN cough 3 days #60 mL 09/26/22 mL oral liquid albuterol sulfate 90 mcg/actuation 2 puff inhalation Q6H PRN 12/05/23 aerosol inhaler shortness of breath or wheezing #8.5 grams amlodipine 5 mg tablet 5 mg PO DAILY #90 tabs 12/05/23 azithromycin 250 mg tablet 250 mg PO DAILY 4 days #4 tabs 12/05/23 (Zithromax Z-Kenrick) benzonatate 200 mg capsule 200 mg PO TID PRN cough #30 caps 12/05/23 doxycycline hyclate 100 mg tablet 100 mg PO BID #20 tabs 12/05/23 prednisone 20 mg tablet 40 mg (2 x 20 mg) PO DAILY #10 tabs 12/05/23 Allergies Allergy/AdvReac Type Severity Reaction Status Date / Time Penicillins [PENICILLINS] Allergy Severe THROAT Verified 12/05/23 18:48 SWELLING penicillin V Allergy Unknown throat Verified 12/05/23 18:48 swelling Review of Systems 2 Review of Systems: Yes all other systems are reviewed and are negative [facility] Social History Social History Alcohol intake: current Alcohol intake frequency: a few times a week Alcohol type: beer and wine Smoked in Last 30 Days: Yes Use of substances other than those prescribed or required for medical reasons: Yes Substance Use Type: Marijuana Substance Use Frequency: Occasionally Advance Directives: No Advance Directives Information Provided: No Do you have a plan to hurt others: No Plan Physical Exam ED Vital Signs: Vital Signs - 24 hr 12/05/23 18:46 12/05/23 21:22 12/05/23 21:59 Temperature 97.8 F 98.1 F 98.0 F Pulse Rate 98 80 74 Respiratory Rate 18 18 15 Blood Pressure 174/100 H 170/103 H 175/96 H Pulse Oximetry 96 95 96 Oxygen Delivery Method Room Air Room Air Room Air 12/05/23 22:37 12/05/23 22:41 Temperature 98.3 F Pulse Rate 75 Respiratory Rate 16 Blood Pressure 184/99 H 184/99 H Pulse Oximetry 99 Oxygen Delivery Method Room Air BMI result Body Mass Index 22.9 Appearance: Alert. Oriented X3. No acute distress. Eyes: No pallor or icterus ENT: Pharynx normal. Oral Mucosa moist Neck: Normal inspection. Neck supple. CVS: Normal heart rate and rhythm. Pulses normal. Respiratory: No respiratory distress. Equal air entry bilateral, bilateral prolonged expiration no crackles Abdomen: Soft and nontender. Bowel sounds are present, no mass palpable, no CVA tenderness Skin: Skin warm and dry. Normal skin color. Normal skin turgor. Extremities: No lower extremity edema. No calf tenderness Neuro: Oriented X 3. Course Course Course Narrative: RME performed by Kerry Rea PA-C. Patient is a 68 year old assigned female at presenting to the emergency department with shortness of breath. Patient states she has been having increased difficulty breathing / shortness of breath over the last few days. Detailed physical exam and review of systems are deferred to the care clinician. EKG, labs, imaging, and swabs ordered. Patient placed back in the waiting room pending room availability and results. Medications Administered Discontinued Medications Generic Name Dose Route Start Last Admin Trade Name Joy PRN Reason Stop Dose Admin Albuterol Sulfate 4 puff 12/05/23 21:49 12/05/23 22:17 Albuterol Sulfate 90 Mcg 8 Gm Inhaler INHALE 12/05/23 21:50 4 puff ONCE ONE Administration Amlodipine Besylate 5 mg 12/05/23 22:35 12/05/23 22:37 Amlodipine Besylate 5 Mg Tablet PO 12/05/23 22:36 5 mg ONCE ONE Administration Protocol Azithromycin 500 mg 12/05/23 21:50 12/05/23 22:17 Azithromycin 500 Mg Tablet PO 12/05/23 21:51 500 mg ONCE ONE Administration Doxycycline Monohydrate 100 mg 12/05/23 21:51 12/05/23 22:17 Doxycycline Monohydrate 100 Mg Capsule PO 12/05/23 21:52 100 mg ONCE ONE Administration Guaifenesin/Codeine Phosphate 10 ml 12/05/23 21:49 12/05/23 22:17 Guaifen/Codeine Sf 200/20/10ml 10 Ml Liquid PO 12/05/23 21:50 10 ml ONCE ONE Administration Prednisone 60 mg 12/05/23 21:49 12/05/23 22:17 Prednisone 20 Mg Tablet PO 12/05/23 21:50 60 mg ONCE ONE Administration Medical Decision Making Medical Decision Making MDM Narrative: Patient is smoker with COPD stable as such will prescribe prednisone antibiotic inhaler Lab Data [facility] Lab Attestation statement: I reviewed the patient's lab results. 12/05/23 18:54 12/05/23 18:54 Labs: Lab Results 12/05/23 12/05/23 Range/Units 18:54 19:56 WBC 5.6 (4.8-10.8) X10*3/uL RBC 4.63 (4.20-5.50) X10*6/uL Hgb 15.0 (12.0-16.0) g/dl Hct 44.5 (37.0-47.0) % MCV 96.1 (80.0-98.0) fL MCH 32.4 (27.0-33.0) pg MCHC 33.7 (31.0-35.0) g/dl RDW 12.6 (11.0-16.0) % Plt Count 219 (160-400) X10*3/uL MPV 10.6 (9.4-12.3) fL Immature Gran % (Auto) 0.2 (0.0-0.4) % Neut % (Auto) 49.9 (45-73) % Lymph % (Auto) 39.3 (20-40) % Brooks % (Auto) 8.8 (2-11) % Eos % (Auto) 1.1 (0-4) % Baso % (Auto) 0.7 (0-2) % Lymph # (Auto) 2.2 (1.2-4.9) X10*3/uL Brooks # (Auto) 0.5 (0.1-1.2) X10*3/uL Eos # (Auto) 0.1 (0.0-0.4) X10*3/uL Baso # (Auto) 0.0 (0.0-0.2) X10*3/uL Abs Immat Gran (auto) 0.01 (0.00-0.03) X10*3/uL Absolute Neuts (auto) 2.8 (2.0-8.3) x10*3/uL Absolute Nucleated RBC 0.000 (0.0-0.012) X10*3/uL Nucleated RBC % (auto) 0.0 (0.0-0.2) /100WBC PT 9.8 L (11.1-13.3) SEC INR 0.8 L (0.9-1.1) APTT 30.3 (26.0-36.8) SEC Sodium 142 (135-145) mmol/L Potassium 4.2 (3.3-5.1) mmol/L Chloride 108 (96-108) mmol/L Carbon Dioxide 24 (22-29) mmol/L Anion Gap 14 (12-20) BUN 12 (9-16) mg/dL Creatinine 0.77 (0.5-1.4) mg/dL Estim Creat Clear Calc 66.0 Estimated GFR > 60 Random Glucose 134 H (60-115) mg/dL Calcium 9.5 (8.4-10.2) mg/dL Magnesium 2.0 (1.6-2.6) mg/dL Total Bilirubin 0.4 (0.0-1.0) mg/dL AST 15 (5-31) U/L ALT 12 (0-31) U/L Alkaline Phosphatase 84 (39-117) U/L Troponin I High Sens 3.8 (<3.5-17.0) ng/L Total Protein 6.8 (6.5-8.0) g/dL Albumin 4.2 (3.5-5.0) g/dL Urine Color Yellow Urine Appearance Clear Urine pH 6.5 (5.0-9.0) Ur Specific [place] 1.025 (1.005-1.025) Urine Protein Trace (Neg-Trace) mg/dL Urine Glucose (UA) Negative (Negative) mg/dL Urine Ketones Trace (Negative) mg/dL Urine Blood Trace H (Negative) Urine Nitrite Negative (Negative) Ur Leukocyte Esterase Negative (Negative) Urine RBC 11-20 H (0-2) /HPF Urine WBC 0-5 (0-5) /HPF Ur Squamous Epith Cells 0-2 (0-2) /HPF Urine Bacteria None Seen (None Seen) Hyaline Casts 0-2 (0-2) /LPF Influenza Type A (PCR) NEGATIVE (Negative) Influenza Type B (PCR) NEGATIVE (Negative) RSV RNA Qual (PCR) NEGATIVE (Negative) SARS-CoV-2 RNA (RT-PCR) NEGATIVE (Negative) Independent Interpretation I performed an independent interpretation of an: Plain X-Ray Interpretation: No infiltrate Discharge Plan Discharge Clinical Impression: Acute exacerbation of chronic obstructive airways disease Patient Disposition: Home, Self-Care Instructions: COPD (Chronic Obstructive Pulmonary Disease) (ED) Additional Instructions: Use albuterol inhaler as adv Take antibiotics and prednisone as prescribed Stop smoking Prescriptions: New albuterol sulfate 90 mcg/actuation HFA aerosol inhaler 2 puff inhalation Q6H PRN (Reason: shortness of breath or wheezing) Qty: 8.5 4RF azithromycin [Zithromax Z-Kenrick] 250 mg tablet 250 mg PO DAILY 4 Days Qty: 4 0RF Rx Instructions: start on day 2 of therapy benzonatate 200 mg capsule 200 mg PO TID PRN (Reason: cough) Qty: 30 0RF prednisone 20 mg tablet 40 mg PO DAILY Qty: 10 0RF doxycycline hyclate 100 mg tablet 100 mg PO BID Qty: 20 0RF amlodipine 5 mg tablet 5 mg PO DAILY Qty: 90 3RF No Action hydrochlorothiazide 12.5 mg tablet 12.5 mg PO QAM hydrochlorothiazide 12.5 mg tablet 12.5 mg PO QAM Qty: 90 1RF albuterol sulfate [ProAir HFA] 90 mcg/actuation HFA aerosol inhaler 2 puff inhalation Q4-6H PRN (Reason: shortness of breath or wheezing) Qty: 1 0RF azithromycin 250 mg tablet 250 mg PO DAILY 4 Days Qty: 4 0RF Rx Instructions: start on day 2 of therapy prednisone 20 mg tablet 60 mg PO DAILY Qty: 12 0RF doxycycline hyclate 100 mg capsule 100 mg PO BID 10 Days Qty: 20 0RF albuterol sulfate 90 mcg/actuation aerosol powdr breath activated 2 inh inhalation Q4-6H PRN (Reason: shortness of breath or wheezing) Qty: 1 0RF prednisone 20 mg tablet 20 mg PO DAILY 5 Days Qty: 5 0RF codeine-guaifenesin 10-100 mg/5 mL liquid 5 ml PO Q6H PRN (Reason: cough) 3 Days Qty: 60 0RF Interventions: ED Discharge Assessment Last Done: 12/05/23 22:41 Discharge Date/Time: 12/05/23 22:42 Print Language: Setswana
[2023-12-05 19:00] LABS: MANUAL DIFF FLAG NO
[2023-12-05 19:04] LABS: Basophils Percent Auto 0.7 % (0-2); Eosinophils Absolute Auto 0.1 X10*3/uL (0.0-0.4); Eosinophils Percent Auto 1.1 % (0-4); Hematocrit 44.5 % (37.0-47.0); Imm Gran Abs Auto 0.01 X10*3/uL (0.00-0.03); Imm Gran Pct Auto 0.2 % (0.0-0.4); Lymphocytes Absolute Auto 2.2 X10*3/uL (1.2-4.9); Lymphocytes Percent Auto 39.3 % (20-40); Mean Corpuscular HGB Conc 33.7 g/dl (31.0-35.0); Mean Corpuscular Hemoglobin 32.4 pg (27.0-33.0); Mean Corpuscular Volume 96.1 fL (80.0-98.0); Mean Platelet Volume 10.6 fL (9.4-12.3); Monocytes Absolute Auto 0.5 X10*3/uL (0.1-1.2); Monocytes Percent Auto 8.8 % (2-11); Neutrophils Absolute Auto 2.8 x10*3/uL (2.0-8.3); Neutrophils Percent Auto 49.9 % (45-73); Platelet Count 219 X10*3/uL (160-400); Red Blood Count 4.63 X10*6/uL (4.20-5.50); Red Cell Distribution Width 12.6 % (11.0-16.0); White Blood Count 5.6 X10*3/uL (4.8-10.8)
--- OUTSIDE RECORDS SUMMARY | 2023-12-05 19:04 | XMS_ITS | Continuity of Care Document ---
Author Organization [facility] Address [address] [place] [address]- Care Team Providers Care Rag Baler Name Role Phone Not on Staff, PCP Primary Care Physician Unavail able Encounter [facility] Date(s): 01/10/23 - 02/26/23 [facility] [address] [place], [place] [address] Attending Physician: Mandeep Arellano MD Admitting Physician: Mandeep Arellano MD Allergies, Adverse Reactions, Alerts Substance Reaction Severity Status penicillin ANAPHYLAXIS Active Medications acetaminophen-hydrocodone 325 mg-5 mg oral tablet See Instructions, PRN for pain, 1-2 tablet By Mouth Every 6 hours not to exceed 8 tablets/day, # 60tablet, 0 Refills, Maintenance, 09/06/14 8:17:22, Tablet Start Date: 09/06/14 Status: Ordered Aspirin = 81 mg, By Mouth, Daily, 0 Refills, Maintenance, 08/30/14 11:14:17 Start Date: 08/30/14 Status: Ordered Metoprolol = 25 mg, By Mouth, 2 times a day, 0 Refills, Maintenance, 08/30/14 11:13:42 Start Date: 08/30/14 Status: Ordered Problem List Condition Confirmation Course Effective Dates Status Health St at[facility] Informant HTN (hypertension) Confirmed Active Cerebral aneurysm Confirmed Active Social History Social History Type Response Smoking Status Current every day naila ta entered on: 04/12/14 Sex Patient Care team information Care Team Personnel Name: Joaquim Menjivar RN Position: S SN RN Member Role: Primary Care Nurse Name: Not on Staff, PCP Position: S Physician (General Medicine) Member Role: PCP Care Team Related Persons Name: RODRICK MCKAY Address: home [address] [place] [address] Name: CORWIN MCKAY Address: home [address] [place] [address]
--- OUTSIDE RECORDS SUMMARY | 2023-12-05 19:04 | XMS_ITS | Continuity of Care Document ---
Author Organization [facility] Address [address] [place] [address]- Care Team Providers Care Oracle E Business Developer Name Role Phone Not on Staff, PCP Primary Care Physician Unavail able Encounter [facility] Date(s): 01/27/23 - 02/26/23 [facility] Medicine [address] [place] [id number]- Attending Physician: Issa Almanzar Admitting Physician: AdmIssa garcia Referring Physician: AdmtrIssa Allergies, Adverse Reactions, Alerts Substance Reaction Severity [...] Team Personnel Name: Joaquim Menjivar RN Position: [facility] SN RN Member Role: Primary Care Nurse Name: Not on Staff, PCP Position: S Physician (General Medicine) Member Role: PCP Care Team Related Persons Name: RODRICK MCKAY Address: home [address] [place] [address] Name: CORWIN MCKAY Address: [address] [place] [address]
[2023-12-05 19:10] LABS: INTERNATIONAL NORM RATIO 0.8 (0.9-1.1); Prothrombin Time 9.8 SEC (11.1-13.3)
[2023-12-05 19:13] LABS: Partial Thromboplastin Time 30.3 SEC (26.0-36.8)
[2023-12-05 19:16] LABS: Alanine Aminotransferase 12 U/L (0-31); Albumin Level 4.2 g/dL (3.5-5.0); Alkaline Phosphatase 84 U/L (39-117); Anion Gap 14 (12-20); Aspartate Amino Transferase 15 U/L (5-31); Bilirubin Total 0.4 mg/dL (0.0-1.0); Blood Urea Nitrogen 12 mg/dL (9-16); Calcium 9.5 mg/dL (8.4-10.2); Carbon Dioxide 24 mmol/L (22-29); Chloride 108 mmol/L (96-108); Estimated Glomerular Filt Rate > 60; Glucose Random 134 mg/dL (60-115); Potassium 4.2 mmol/L (3.3-5.1); Sodium 142 mmol/L (135-145); Total Protein 6.8 g/dL (6.5-8.0)
[2023-12-05 19:23] LABS: Troponin-I High Sensitivity 3.8 ng/L (<3.5-17.0)
[2023-12-05 19:44] LABS: Influenza A PCR NEGATIVE (Negative); Influenza B PCR NEGATIVE (Negative); Resp Syncy Virus RNA Qual PCR NEGATIVE (Negative); SARS COV2 PCR INHOUSE NEGATIVE (Negative)
--- NOTE | 2023-12-05 19:56 | MHC.EDTECH ---
Urine sample obtained and sent to lab.
[2023-12-05 20:04] LABS: Appearance Urine Clear; Color Urine Yellow; Glucose Urine UA Negative (Negative); Leukocyte Esterase Urine Negative (Negative); Nitrite Urine Negative (Negative); PH 6.5 (5.0-9.0); Specific Gravity - Urine 1.025 (1.005-1.025); UMIC TRIGGER UACC YES; Urine Blood Trace (Negative); Urine Ketones Trace mg/dL (Negative); Urine Protein Trace mg/dL (Neg-Trace)
[2023-12-05 20:06] LABS: Bacteria Urine None Seen (None Seen); Hyaline Casts Urine 0-2 /LPF (0-2); Squamous Epithelial Cell Urine 0-2 /HPF (0-2); WBC Urine 0-5 /HPF (0-5)
[2023-12-05 21:22] VITALS: BP 170/103; PULSE 80; RESP 18; TEMP 36.7; O2SAT 95
[2023-12-05 21:59] VITALS: BP 175/96; PULSE 74; RESP 15; TEMP 36.7; O2SAT 96
[2023-12-05] MEDS: guaiFEN/Codeine SF 200/20/10ML 10 ML LIQUID PO (22:17)
[2023-12-05] MEDS: predniSONE 20 MG TABLET 60 MG PO (22:17)
[2023-12-05] MEDS: Azithromycin 500 MG TABLET PO (22:17)
[2023-12-05] MEDS: Albuterol Sulfate 90 MCG 8 GM INHALER 4 PUFF INHALE (22:17)
[2023-12-05] MEDS: Doxycycline Monohydrate 100 MG CAPSULE PO (22:17)
[2023-12-05 22:37] VITALS: BP 184/99
[2023-12-05] MEDS: amLODIPine Besylate 5 MG TABLET PO (22:37)
--- NOTE | 2023-12-05 22:39 | PC.NURSE ---
BP 184/99, P 75. Patient denies chest pain, headache, dyspnea resolved after use of Albuterol inhaler. Dr. Guzmán notified. Patient medicated with Amlodipine 5 mg PO at d/c and Rx for Amlodipine 5 mg PO daily sent to patient's pharmacy.
[2023-12-05 22:41] VITALS: BP 184/99; PULSE 75; RESP 16; TEMP 36.8; O2SAT 99
== END 2023-12-05 22:42 | disposition home or self-care (01) ==
PROVIDERS: Physician Assistant Medical; Emergency Provider Internal Medicine; PCP Internal Medicine
DX: J44.1 Chronic obstructive pulmonary disease with (acute) exacerbation (principal); R06.02 Shortness of breath; Z03.818 Encounter for observation for suspected exposure to other biological agents ruled out; R05.9 Cough, unspecified; F17.200 Nicotine dependence, unspecified, uncomplicated; F12.90 Cannabis use, unspecified, uncomplicated; Z79.899 Other long term (current) drug therapy
CPT/HCPCS: 0241U; 36415; 71045; 80053; 81001; 81003; 83735; 84484; 85025; 85610; 85730; 93005; 99284; 99285

== ENCOUNTER 2024-01-30 09:54 | Outpatient (REF) | payer OTHER, SELFPAY ==
[2024-01-30 15:24] LABS: Influenza A PCR NEGATIVE (Negative); Influenza B PCR NEGATIVE (Negative); Resp Syncy Virus RNA Qual PCR NEGATIVE (Negative); SARS COV2 PCR INHOUSE NEGATIVE (Negative)
== END 2024-01-30 09:55 | disposition home or self-care (01) ==
LOC: HO.LAB 09:54
PROVIDERS: PCP Nurse Practitioner Family; Visit Provider Nurse Practitioner Family
DX: J06.9 Acute upper respiratory infection, unspecified (principal); F17.210 Nicotine dependence, cigarettes, uncomplicated
CPT/HCPCS: 0241U; 99202

== ENCOUNTER 2024-01-30 09:54 | Outpatient (AMB) | payer MEDICARE, MEDICAID, SELFPAY ==
--- NOTE | 2024-01-30 09:59 | MHC.PC.OV ---
Intake Visit Reasons: fever, cough, congestion Intake Note: patient her c/o Fever, cough, and congestion [employer] Consultant Required: No Is last menstrual period known: No Post menopausal: No Patient : No Allergies Penicillins [PENICILLINS] Allergy (Severe, Verified 01/30/24 10:04) THROAT SWELLING penicillin V Allergy (Unknown, Verified 01/30/24 10:04) throat swelling Tobacco use date assessed: 01/30/24 Fall risk assessment: 1 Fall in past year Last assessed Fall Risk: 01/30/24 [facility] Social History Alcohol intake: current Alcohol intake frequency: a few times a week Alcohol type: beer and wine Substance Use Type: Marijuana Coding Assessment & Plan Assessment & Plan Medications: Discontinued azithromycin start on day 2 of therapy Discontinued Reason: Patient no longer taking 250 mg PO DAILY 4 tabs 0RF 4 days prednisone Discontinued Reason: Patient no longer taking 40 mg (2 x 20 mg) PO DAILY 10 tabs 0RF prednisone Discontinued Reason: Patient no longer taking 60 mg (3 x 20 mg) PO DAILY 12 tabs 0RF codeine-guaifenesin 10-100 mg/5 mL Discontinued Reason: Patient no longer taking 5 mL PO Q6H PRN 60 mL 0RF cough 3 days azithromycin (Zithromax Z-Kenrick) start on day 2 of therapy Discontinued Reason: Patient no longer taking 250 mg PO DAILY 4 tabs 0RF 4 days benzonatate Discontinued Reason: Patient no longer taking 200 mg PO TID PRN 30 caps 0RF cough doxycycline hyclate Discontinued Reason: Patient no longer taking 100 mg PO BID 20 tabs 0RF hydrochlorothiazide Discontinued Reason: Patient no longer taking 12.5 mg PO QAM 90 tabs 1RF albuterol sulfate 90 mcg/actuation (ProAir HFA) Discontinued Reason: Patient no longer taking 2 puffs inhalation Q4-6H PRN 1 ea 0RF shortness of breath or wheezing
--- NOTE | 2024-01-30 10:07 | AM.OFFWIN_ITS ---
Intake Vital Signs 01/30/24 10:08 Height 5 ft 7.25 in Weight 141 lb BMI 21.9 BP 140/86 H Blood Pressure Location Rt brachial Position Sitting Respiration 16 Pulse 86 Pulse Source Pulse Oximeter Temp 97.9 F Temp Source Oral Pulse Oximetry (%) 95 Oxygen Delivery Method Simple Mask Intake Visit Reasons: fever, cough, congestion Patient Tobacco Use Status: Current everyday Tobacco user Is last menstrual period known: No Post menopausal: No Patient : No Allergies Penicillins [PENICILLINS] Allergy (Severe, Verified 01/30/24 10:20) THROAT SWELLING penicillin V Allergy (Unknown, Verified 01/30/24 10:20) throat swelling Medication List - Last Reconciled 01/30/24 by Arianna Khan CNP albuterol sulfate 90 mcg/actuation 2 puffs inhalation Q6H PRN amlodipine 5 mg PO DAILY Do you need a note to return to daycare/school/sports/work: No HPI HPI Comments History of Present Illness Details 68 y/o female presents with c/o intermit tent productive cough with white phlegm, runny nose, fatigue. No constitutional symptoms. She notes wheezing which he attributes to history of COPD. She denies difficulty breathing or chest pain. She has not had viral testing. No sick contact. She has history of allergies and not on antihistamine. She smokes 3-4 cigarettes daily. [facility] Social History Alcohol intake: current Alcohol intake frequency: a few times a week Alcohol type: beer and wine Patient Tobacco Use Status: Current everyday Tobacco user Substance Use Type: Marijuana Patient : No Review of Systems Const Details: Denies chills, Denies fatigue, Denies fever(s), Denies headache(s) and Denies weakness HEENT Reports as per HPI Cardiac Denies chest pain, Denies claudication, Denies leg edema, Denies lightheadedness, Denies palpitations, Denies dyspnea, Denies dyspnea on exertion, Denies orthopnea and Denies other (Loss of consciousness) Resp Reports cough, Denies excessive phlegm production, Denies dyspnea, Denies dyspnea on exertion, Denies snoring and Denies wheezing Physical Exam Vital Signs: Last Vital Signs Temp 97.9 F 01/30/24 10:08 Pulse 86 01/30/24 10:08 Resp 16 01/30/24 10:08 BP 140/86 H 01/30/24 10:08 Pulse Ox 95 01/30/24 10:08 Oxygen Delivery Method Simple Mask 01/30/24 10:08 BMI result Body Mass Index 21.9 Const Other: General: comfortable and no acute distress Orientation/consciousness: patient oriented x3 HEENT Head is normocephalic Bilateral ear canal and TM are normal Nasal turbinates and oropharynx are pink and moist Sinuses are nontender with palpation No auricular or cervical lymphadenopathy Chest Chest palpation & inspection: normal inspection of the chest Resp Auscultation: Wheezing to lower base bilaterally Cardiac Palpation: normal PMI Heart sounds: S1 normal heart sound present, S2 normal heart sound present, no gallops, no murmur, no rubs Assessment & Plan Assessment & Plan (1) Viral upper respiratory illness: Code(s): J06.9 - Acute upper respiratory infection, unspecified Plan: Likely viral illness though possibly allergies. No exam evidence of bacterial infection Viral illness There is no antibiotic medication for viruses.? They must run their course.? Most average 5-7 days but 7-10 days is not uncommon and up to 14 days is still possible.? A cough is often the last symptom to resolve and this can last for weeks in some cases. Rest Hydrate well -? Drink plenty of fluids.? Especially water. Tylenol or ibuprofen for muscle aches, headache, fever/discomfort Cannot rule out COVID-19/RSV/Flu infection Nasal swab acquired and will be sent to the lab May take [facility] daily Return for new or worsening symptoms Verbalized understanding and agreed with treatment plan. Orders: Orders SARS-CoV2/FLU/RSV Today J06.9 - Acute upper respiratory infection, unspecified Medications: Discontinued azithromycin start on day 2 of therapy Discontinued Reason: Patient no longer taking 250 mg PO DAILY 4 days 4 tabs 0RF prednisone Discontinued Reason: Patient no longer taking 40 mg (2 x 20 mg) PO DAILY 10 tabs 0RF prednisone Discontinued Reason: Patient no longer taking 60 mg (3 x 20 mg) PO DAILY 12 tabs 0RF codeine-guaifenesin 10-100 mg/5 mL Discontinued Reason: Patient no longer taking 5 mL PO Q6H 3 days PRN 60 mL 0RF cough azithromycin (Zithromax Z-Kenrick) start on day 2 of therapy Discontinued Reason: Patient no longer taking 250 mg PO DAILY 4 days 4 tabs 0RF benzonatate Discontinued Reason: Patient no longer taking 200 mg PO TID PRN 30 caps 0RF cough doxycycline hyclate Discontinued Reason: Patient no longer taking 100 mg PO BID 20 tabs 0RF hydrochlorothiazide Discontinued Reason: Patient no longer taking 12.5 mg PO QAM 90 tabs 1RF albuterol sulfate 90 mcg/actuation (ProAir HFA) Discontinued Reason: Patient no longer taking 2 puffs inhalation Q4-6H PRN 1 ea 0RF shortness of breath or wheezing Coding Level of Care Code New Pt Level 3 (49176) Diagnoses Viral upper respiratory illness J06.9
[2024-01-30 10:08] VITALS: BP 140/86; PULSE 86; RESP 16; TEMP 36.6; O2SAT 95; BMI 21.9
== END 2024-01-30 16:23 | disposition home or self-care (01) ==
PROVIDERS: PCP Nurse Practitioner Family; Visit Provider Nurse Practitioner Family
DX: J06.9 Acute upper respiratory infection, unspecified (principal)

== ENCOUNTER 2024-05-13 13:57 | Outpatient (AMB) | payer MEDICARE, SELFPAY ==
--- NOTE | 2024-05-13 13:58 | MHC.PC.OV ---
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 Intake Note: new patient to [facility] care and also patients needs referral Rn Military Required: No Allergies Penicillins [PENICILLINS] Allergy (Severe, Verified 05/13/24 14:00) THROAT SWELLING penicillin V Allergy (Unknown, Verified 05/13/24 14:00) throat swelling Tobacco use date assessed: 05/13/24 Fall risk assessment: 1 Fall in past year (on a sidewalk) Last assessed Fall Risk: 05/13/24 Dental Screening Dental Screen Date: 05/13/24 Did you have a dental visit in the last 12 months?: No Did you have a dental problem in the last 6 months where you did not have access to dental care?: No Was dental information given to patient?: Patient has dentist HPI HPI Comments History of Present Illness Details This is a 68-year-old female with a past medical history of hypertension, tobacco use disorder, COPD and brain aneurysm presenting to [facility]. She is transferring from Dr. Martini. 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 She lives in [place]. Hypertension treated with amlodipine 5 mg daily. Previously she was on Lopressor, but she had side effects including fatigue and dizziness so it was discontinued. She walks her dog daily. Her blood pressure today is 139/78. She does not monitor at home. No headaches, dizziness, blurry vision. COPD-she was seen by Dr. Wu over 3 years ago. She started smoking at age 18 and quit at age 28. She started smoking again at age 48 and has continued. Currently smokes 3-4 cigarettes per day, but previously smoked half to a pack sometimes. She has an albuterol inhaler to use as needed. Typically requires this in fall and spring. She required prednisone 2 out of the 4 times that she had COVID. She has not required prednisone otherwise during the past 4-5 years. Denies hospital admissions for respiratory issues. Denies chronic cough, wheezing or shortness of breath. No hemoptysis. She had a chest x-ray in 12/19/2023 which was normal. In 2017 she had a brain aneurysm coiled. Dr. Billings did the surgery. She was lost to follow up because he left the practice, and her insurance lapsed. She was supposed to have neuroimaging and follow up once a year. She denies headaches, dizziness, vision changes, weakness, numbness. She does not plan to get further COVID boosters, but she will get the high-dose flu vaccine at her pharmacy. We discussed Prevnar 20 vaccination. She will think about this and says she will get it at the pharmacy if she decides to proceed. She is overdue for bone density, mammogram, annual gynecologic exam. Orders placed. She declines colonoscopy against my recommendation. Denies family history of colon cancer. She has never had a colonoscopy. Agreeable to Cologuard. Denies blood in stools, abdominal pain or diarrhea. ROS: Constitutional: No unexplained weight loss, fever, chills, fatigue or night sweats. Eyes: No vision changes, blurry vision, double vision, eye pain, eye redness, eye discharge. Respiratory: No shortness of breath, cough or sputum production. Cardiovascular: No chest pain, chest pressure or chest discomfort. No palpitations or pedal edema. Gastrointestinal: No anorexia, nausea, vomiting or diarrhea. No abdominal pain or blood in stool. Neurologic: No headache, dizziness, syncope, unilateral weakness, ataxia, numbness or tingling in the extremities. Psychiatric: No depression or anxiety. No SI/HI. Physical exam: Constitutional: Alert, in no distress. Neck: Supple, Full range of motion. No lymphadenopathy. Respiratory: Clear to auscultation. Cardiovascular: S1 S2 regular. No murmurs. No carotid bruits. Gastrointestinal: Abdomen soft, non-tender, non-distended. Normal bowel sounds. No palpable masses. Extremities: Warm and well perfused. No clubbing, cyanosis or edema. Psychiatric: Normal mood and affect [facility] Medical History (Updated 05/13/24 @ 14:54 by MEGHNA Delgado) Tobacco use Brain aneurysm Hypertension COPD (chronic obstructive pulmonary disease) Surgical History (Updated 05/13/24 @ 14:15 by Gia Siddiqi MA) Hx of coil occlusion of patent ductus arteriosus Family History (Updated 05/13/24 @ 14:17 by Gia Siddiqi MA) Father Hypertension Mother Hypertension Diabetes Cardiovascular disease Breast cancer Alcoholism Social History (Updated 05/13/24 @ 14:06 by Gia Siddiqi MA) Household Members: None Both parents involved: No Caregiver staying overnight: No Housing: Apartment Are you a primary care management specialist to a significant other at home: No Do you presently have visiting nurse or other home services: No 75 years or older and lives alone: No Alcohol intake: current Alcohol intake frequency: a few times a week Alcohol type: beer and wine Patient Tobacco Use Status: Current everyday Tobacco user Tobacco use type: Cigarette Cigarettes Per Day: 4 Years Smoked: 20 e-Cigarette/Vaping Use: Never Used Second Hand Smoke Exposure: No Substance Use Type: Marijuana service: No Current occupational status: retired Cognitive needs: No Hearing needs: No Vision needs: No Questionnaire PHQ-9 Over the last 2 weeks, how often have you been bothered by any of the following problems? 60441 - PHQ-9 Billing: Patient declined-do not bill Source: Developed by Drs. Pa Kat, Renu Dover, Akin Rose and colleagues, with an educational babar from [employer]. Thrive Questionnaire Date Thrive assessed: 05/13/24 I am a: Patient What is your living situation today?: I have a steady place to live Within the past 12 months, did the food you bought not last and you didn't have the money to get more?: Never true Within the past 12 months, did you worry whether your food would run out before you got money to buy more?: Never true Do you have trouble paying for medicines?: No Do you have trouble getting transportation to medical appointments?: No Do you have trouble paying your heating and electricity bill?: No Do you have trouble taking care of your child, family member or friend?: No Do you have trouble with day-to-day activities such as bathing, preparing meals, shopping, managing finances, etc.?: No Are you currently unemployed and looking for a job?: No Are you interested in more education?: No THRIVE Score: 0 AUDIT C Alcohol Use Questionnaire (AUDIT-C) 1. How often do you have a drink containing alcohol?: Never 3. How often do you have six or more drinks on one occasion?: Never Total Score: 0 JEVON-7 AMB Questionnaire JEVON-7 Date JEVON - 7 assessed: 05/13/24 Feeling nervous, anxious, or on edge: 0 = Not at all Not being able to stop or control worryin = Not at all Worrying too much about different things: 0 = Not at all Trouble relaxin = Not at all Being so restless that it is hard to sit still: 0 = Not at all Becoming easily annoyed or irritable: 0 = Not at all Feeling afraid as if something awful might happen: 0 = Not at all Total JEVON-7 score (0-4 normal; 5-9 mild; 10-14 moderate; 15-21 severe): 0 Source: Developed by Drs. Pa Kat, Renu Dover, Akin Rose and colleagues, with an educational babar from [employer]. JEVON-7 Assessment Billing JEVON-7 Assessment Tool: JEVON-7 Assessment 43690 Physical exam (Primary Care) Vital Signs: Last Vital Signs Temp 97.5 F 05/13/24 14:06 Pulse 86 05/13/24 14:06 Resp 12 05/13/24 14:06 BP 139/78 05/13/24 14:06 Pulse Ox 94 05/13/24 14:06 Oxygen Delivery Method Room Air 05/13/24 14:06 BMI result Body Mass Index 21.8 Tobacco/Smoking Status: Tobacco use Status Tobacco use date assessed 05/13/24 05/13/24 14:08 Patient Tobacco Use Status Current everyday Tobacco 05/13/24 14:06 Tobacco use type Cigarette 05/13/24 14:08 e-Cigarette/Vaping Use Never Used 05/13/24 14:08 Thrive Assessment: Date of Thrive Assessment Date Thrive assessed 05/13/24 05/13/24 14:00 Coding Level of Care Code Est Pt Level 5 (10635) Complex EM visit Add On G2211 Diagnoses COPD (chronic obstructive pulmonary disease) J44.9 Brain aneurysm I67.1 Hypertension I10 Tobacco use Z72.0 Additional Codes JEVON-7 Assessment Billing - JEVON-7 Assessment Tool: JEVON-7 Assessment 21411 ([id number]) Time Spent (min) 50 Comment Direct patient care, chart review, completing documentation Assessment & Plan Assessment & Plan (1) COPD (chronic obstructive pulmonary disease): Code(s): J44.9 - Chronic obstructive pulmonary disease, unspecified Category: Medical Plan: Patient currently asymptomatic. Continue albuterol 2 puffs every 4 hours as needed for coughing, wheezing or shortness of breath. Stressed the importance of smoking cessation. Patient is not prepared to quit at this time. PFT ordered. Refer to pulmonology. See above HPI regarding immunization. Recommended LDCT. She would like to review this with pulmonology and deferred ordered today. (2) Brain aneurysm: Code(s): I67.1 - Cerebral aneurysm, nonruptured Category: Medical Plan: I will place a referral to her neurosurgeon and contact his office so that I can put in orders for neuroimaging in anticipation of that visit. Smoking cessation advised. (3) Hypertension: Code(s): I10 - Essential (primary) hypertension Category: Medical Plan: Systolic BP mildly elevated today. Recommended decreasing sodium, caffeine and smoking cessation. Continue amlodipine and recheck at follow up visit. (4) Tobacco use: Code(s): Z72.0 - Tobacco use Category: Social Hx Plan: Strongly recommended smoking cessation. Discussed risks of tobacco use with the patient. Plan Follow up in 3 months. Orders: Orders Comprehensive Met. Panel Today I67.1 - Cerebral aneurysm, nonruptured, J44.9 - Chronic obstructive pulmonary disease, unspecified, Z13.6 - Encounter for screening for cardiovascular disorders TSH reflex Free T4 Today I67.1 - Cerebral aneurysm, nonruptured, J44.9 - Chronic obstructive pulmonary disease, unspecified, Z13.6 - Encounter for screening for cardiovascular disorders XR DEXA axial skeleton Today N95.1 - Menopausal and female climacteric states Complete Blood Count Auto Diff Today I67.1 - Cerebral aneurysm, nonruptured, J44.9 - Chronic obstructive pulmonary disease, unspecified, Z13.6 - Encounter for screening for cardiovascular disorders Lipid Panel Today I67.1 - Cerebral aneurysm, nonruptured, J44.9 - Chronic obstructive pulmonary disease, unspecified, Z13.6 - Encounter for screening for cardiovascular disorders MM screening mammo BI Today Z12.31 - Encounter for screening mammogram for malignant neoplasm of breast PFT pulmonary function test Today J44.9 - Chronic obstructive pulmonary disease, unspecified Referrals Cologuard Test Z12.11 - Encounter for screening for malignant neoplasm of colon, Z12.12 - Encounter for screening for malignant neoplasm of rectum FINAL ASSEMBLER Referral Z01.419 - Encounter for gynecological examination (general) (routine) without abnormal findings
--- OUTSIDE RECORDS SUMMARY | 2024-05-13 14:01 | XMS_ITS | Encounter Summary ---
Author Organization [facility] Address [address] [place] [address] Care Team Providers Care Catering Operations Manager Name Role Phone Mahi aGr Primary Care Provider Encounter Details Date Type Department Care Team (Late st Contact Info) Description 09/01/2018 Scanned Document [facility] [address] [facility] [address] [facility] [place] [address] Vasyl Billings MD [address] [place] [address] Social History Tobacco Use Types Packs/Day Years Used Date Smoking Tobacco: Never Assessed Comments Unknown Sex and Gender Information Value Date Recorded Sex Assigned at Not on file Legal Sex Female 11:09 AM EST Gender Identity Not on file Sexual Orientation Not on file documented as of this encounter Plan of Treatment Not on file documented as of this encounter Visit Diagnoses Not on filedocumented in this encounter Care Teams Catering Operations Manager Relationship Specialty Start Date End Date Mahi Gar PA [address] [place] [phone] PCP - General Otolaryngology 03/03/18 documented as of this encounter
--- OUTSIDE RECORDS SUMMARY | 2024-05-13 14:01 | XMS_ITS | Encounter Summary ---
Author Organization [facility] and [facility] Address [address] [place] [address] Care Team Providers Care Instructor Correspondence School Name Role Phone Mahi Gra Primary Care Provider [phone] Encounter Details Date Type Department Care Team (Late st Contact Info) Description 09/02/2018 Scanned Document [facility] [place] [address] [facility] [address] [place] [address] Vasyl Billings MD [address] [place] [address] Social History Tobacco Use Types Packs/Day Years Used Date Smoking Tobacco: Never Assessed Comments Unknown Sex and Gender Information Value Date Recorded Sex Assigned at Not on file Legal Sex Female 11:09 AM EST Gender Identity Not on file Sexual Orientation Not on file documented as of this encounter Plan of Treatment Not on file documented as of this encounter Procedures Procedure Name Priority Date/Time Associated Diagnosis Comments MRI RESULT SCAN Routine 09/02/2018 documented in this encounter Results * MRI Result Scan (09/02/2018) us Historical Provider IMG SCAN REPORTS Final Resul t documented in this encounter Visit Diagnoses Not on filedocumented in this encounter Care Teams Instructor Correspondence School Relationship Specialty Start Date End Date Mahi Gar PA [address] [place] [address] PCP - General Otolaryngology 03/03/18 documented as of this encounter
--- OUTSIDE RECORDS SUMMARY | 2024-05-13 14:01 | XMS_ITS | Encounter Summary ---
Author Organization [facility] and [facility] Address [address] [place] [address] Care Team Providers Care Green Jobs Trainer Name Role Phone Mahi Gar Primary Care Provider [phone] Encounter Details Date Type Department Care Team (Late st Contact Info) Description 09/01/2018 Scanned Document [facility] [address] [facility] [address] [facility] [place] [address] Vasyl Billings MD [address] [place] [address] Social History Tobacco Use Types [...] on filedocumented in this encounter Care Teams Green Jobs Trainer Relationship Specialty Start Date End Date Mahi Gar PA [address] [place] [phone] PCP - General Otolaryngology 03/03/18 documented as of this encounter
--- OUTSIDE RECORDS SUMMARY | 2024-05-13 14:01 | XMS_ITS | Encounter Summary ---
Author Organization [facility] and [facility] Address [address] [place] [address] Care Team Providers Care Shuttle Route Vehicle Operator Name Role Phone Mahi Gar Primary Care Provider Encounter Details Date Type Department Care Team (Late st Contact Info) Description 09/01/2018 Scanned Document [facility] [address] [facility] [address] [facility] [place] [address] Vasyl Billings MD [address] [place] [address] Social History Tobacco Use Types [...] on filedocumented in this encounter Care Teams Shuttle Route Vehicle Operator Relationship Specialty Start Date End Date Mahi Gar PA [address] [place] [phone] PCP - General Otolaryngology 03/03/18 documented as of this encounter
--- OUTSIDE RECORDS SUMMARY | 2024-05-13 14:01 | XMS_ITS | Encounter Summary ---
Author Organization [employer] Address [address] [facility] [address] [place] [address] Care Team Providers Care Glass Production Machine Operator Name Role Phone Unavailable Primary Care Provider Unavailabl e Reason for Visit * Reason Onset Date Comments New Patient 01/30/2023 Encounter Details Date Type Department Care Team (Late st Contact Info) Description 01/30/2023 Telephone [facility] [address] [place] [address] Dion Jovel MD [address] [place] [address] New Patient Social History Tobacco Use Types Packs/Day Years Used Date Smoking Tobacco: Never Assessed Comments Unknown Sex and Gender Information Value Date Recorded Sex Assigned at Female 01/30/2023 3:38 PM EDT Legal Sex Female 3:29 PM EDT Gender Identity Female 01/30/2023 3:38 PM EDT Sexual Orientation Not on file documented as of this encounter Miscellaneous Notes * Telephone Encounter - Azra Nunez - 01/30/2023 3:48 PM EDT Pt has been transfer over to wait list for AVIONICS MANAGER. EFFECTIVE SINCE 01/30/2023 documented in this encounter Plan of Treatment Not on file documented as of this encounter Visit Diagnoses Not on filedocumented in this encounter
--- OUTSIDE RECORDS SUMMARY | 2024-05-13 14:01 | XMS_ITS | Encounter Summary ---
Author Organization [facility] and [facility] Address [address] [place] [address] Care Team Providers Care Planning Coordinator Name Role Phone Mahi Gar Primary Care Provider Encounter Details Date Type Department Care Team (Late st Contact Info) Description 09/01/2018 Scanned Document [facility] [address] [facility] [address] [facility] [place] [address] Vasyl Billings MD [address] [place] [address] Social History Tobacco Use Types [...] on filedocumented in this encounter Care Teams Planning Coordinator Relationship Specialty Start Date End Date Mahi Gar PA [address] [place] [phone] PCP - General Otolaryngology 03/03/18 documented as of this encounter
--- OUTSIDE RECORDS SUMMARY | 2024-05-13 14:01 | XMS_ITS | Clinical Summary ---
Author Organization [employer] Address [address] [place] [address] [address] [place] [address] Care Team Providers Care Delivery Driver Name Role Phone Unavailable Primary Care Provider Unavailabl e Social History Tobacco Use Types Packs/Day Years Used Date Smoking Tobacco: Never Assessed Comments Unknown Sex and Gender Information Value Date Recorded Sex Assigned at Female 01/30/2023 3:38 PM EDT Legal Sex Female 3:29 PM EDT Gender Identity Female 01/30/2023 3:38 PM EDT Sexual Orientation Not on file Plan of Treatment Health Maintenance Due Date Last Done Comments CT Colonography 1953 Colonoscopy 1953 Colorectal Cancer Screening 1953 Depression Screening 1953 FIT DNA/Cologuard 1953 FIT 1953 FOBT 1953 SDOH Screening 1953 Sigmoidoscopy 1953 Alcohol/Substance Use Screening 1965 Tobacco Screening 1965 Hepatitis C Screening 10/29/1971 DTaP/Tdap/Td Vaccines (1 - Tdap) 1972 Mammogram 1993 Pneumococcal Vaccine: 50+ Ye ars (1 of 1 - PCV) 10/29/2003 Zoster Vaccines (1 of 2) 10/29/2003 COVID-19 Vaccine ( - 2023-2 5 season) 2023 Influenza Vaccine (#1) 2023 RSV Patients and Pa tients Aged 60 years or older (1 - 1-dose 75+ series) 2028 HIB Vaccines Aged Out No longer eligi ble based on patient's age to complete this topic HPV Vaccines Aged Out No longer eligi ble based on patient's age to complete this topic Hepatitis A Vaccines Aged Out No long er eligible based on patient's age to complete this topic Hepatitis B Vaccines Aged Out No long er eligible based on patient's age to complete this topic IPV Vaccines Aged Out No longer eligi ble based on patient's age to complete this topic Meningococcal Vaccine Aged Out No parrish elle eligible based on patient's age to complete this topic RSV under 20 months Aged Out No longe r eligible based on patient's age to complete this topic Rotavirus Vaccines Aged Out No longer eligible based on patient's age to complete this topic Insurance N PARTIAL
--- OUTSIDE RECORDS SUMMARY | 2024-05-13 14:01 | XMS_ITS | Encounter Summary ---
Author Organization [facility] and [facility] Address [address] [place] [address] Care Team Providers Care Golf Ball Trimmer Name Role Phone Mahi Gar Primary Care Provider [phone] Encounter Details Date Type Department Care Team (Late st Contact Info) Description 09/01/2018 Scanned Document [facility] at [address] [facility] [address] [facility] [place] [address] Vasyl Billings MD [address] [place] [phone] Social History Tobacco Use Types Packs/Day Years [...] Associated Diagnosis Comments MRI RESULT SCAN Routine 06/27/2018 MRI RESULT SCAN Routine 08/27/2016 MRI RESULT SCAN Routine 03/07/2015 documented in this encounter Results * MRI Result Scan (06/27/2018) us Historical Provider IMG SCAN REPORTS Final Resul t * MRI Result Scan (08/27/2016) us Historical Provider IMG SCAN REPORTS Final Resul t * MRI Result Scan (03/07/2015) us Historical Provider IMG SCAN REPORTS Final Resul t documented in this encounter Visit Diagnoses Not on filedocumented in this encounter Care Teams Golf Ball Trimmer Relationship Specialty Start Date End Date Mahi Gar PA [address] [place] [address] PCP - General Otolaryngology 03/03/18 documented as of this encounter
--- OUTSIDE RECORDS SUMMARY | 2024-05-13 14:01 | XMS_ITS | Encounter Summary ---
Author Organization [facility] and [facility] Address [address] [place] [address] Care Team Providers Care Blood Bank Specialist Name Role Phone Mahi Gar Primary Care Provider Encounter Details Date Type Department Care Team (Late st Contact Info) Description 09/08/2018 Scanned Document [facility] [place] [address] [facility] [address] [place] [address] Vasyl Billings MD [address] [place] [address] Social History Tobacco Use Types [...] on filedocumented in this encounter Care Teams Blood Bank Specialist Relationship Specialty Start Date End Date Mahi Gar PA [address] [place] [phone] PCP - General Otolaryngology 03/03/18 documented as of this encounter
--- OUTSIDE RECORDS SUMMARY | 2024-05-13 14:01 | XMS_ITS | Clinical Summary ---
Author Organization [address] Address [address] [place] [phone] Phone Care Team Providers Care Manager Property Name Role Phone Mahi Gar Primary Care Provider Allergies Active Allergy Reactions Criticality Noted Date Comments Environmental Allergies 10/12/2018 Medications hydroCHLOROthiaz vance (HYDRODIURIL) 12.5 MG tablet TK 1 T PO QAM 6 09/11/2018 Active aspirin 81 MG EC tablet Take 81 mg by mouth daily. 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 09/05/14 Family History Medical History Relation Name Comments Heart attack Father Breast cancer Mother Emphysema Mother Osteoporosis Mother Hypertension Other Relation Name Status Comments Father Mother Other Social History Tobacco Use Types Packs/Day Years Used Date Smoking Tobacco: Every Day Smokeless Tobacco: Never Alcohol Use Standard Drinks/Week Comments Yes 0 (1 standard drink = 0.6 oz pur e alcohol) Comments Unknown Sex and Gender Information Value Date Recorded Sex Assigned at Not on file Legal Sex Female 11:09 AM EST Gender Identity Not on file Sexual Orientation Not on file Last Filed Vital Signs Vital Sign Reading Time Taken Comments Blood Pressure 118/82 10/12/2018 1:05 PM EDT Pulse - - Temperature - - Respiratory Rate - - Oxygen Saturation - - Inhaled Oxygen Concentration - - Weight 68.2 kg (150 lb 6.4 oz) 10/12/2018 1:05 P M EDT Height 170.2 cm (5' 7 ) 10/12/2018 1:05 PM EDT Body Mass Index 23.56 10/12/2018 1:05 PM EDT Plan of Treatment Health Maintenance Due Date Last Done Comments HIV screening 1966 Hepatitis C screening 10/29/1971 Tetanus adult (Td q 10,TDAP once) 1973 Breast cancer screening 1993 Lipid disorder screening 1993 Colon cancer screening, Colonoscopy 1998 Diabetes screening 1998 Shingles vaccine (Shingrix) (1 of 2 - Shingrix (RZV) 2 Dose Standard Series) 10/29/2003 Osteoporosis screening (bone density) 2018 Pneumo Vaccine 65+ (1 of 1 - PCV) 2018 Influenza vaccine 10/30/2023 Covid-19 vaccine series (1 - 2023-25 season) 2023 RSV Discussion (1 - 1-dose 7 5+ series) 2028 Cervical cancer screening Discontinued Meningococcal Vaccine Aged Out No parrish elle eligible based on patient's age to complete this topic Care Teams Manager Property Relationship Specialty Start Date End Date Mahi Gar PA [address] [place] [phone] PCP - General Otolaryngology 03/03/18
--- OUTSIDE RECORDS SUMMARY | 2024-05-13 14:01 | XMS_ITS | Encounter Summary ---
Author Organization [facility] Address [address] [place] [address] Care Team Providers Care Sand Drier Name Role Phone Mahi Gar Primary Care Provider Encounter Details Date Type Department Care Team (Late st Contact Info) Description 09/01/2018 Scanned Document [facility] [address] [facility] 800 [facility] [place] [address] Vasyl Billings MD 800 [place] [address] Social History Tobacco Use Types [...] on filedocumented in this encounter Care Teams Sand Drier Relationship Specialty Start Date End Date Mahi Gar PA 1 [place] [phone] PCP - General Otolaryngology 03/03/18 documented as of this encounter
--- OUTSIDE RECORDS SUMMARY | 2024-05-13 14:01 | XMS_ITS | Encounter Summary ---
Author Organization [facility] Address [address] [place] [address] Care Team Providers Care Screen Tender Helper Name Role Phone Mahi Gar Primary Care Provider Encounter Details Date Type Department Care Team (Late st Contact Info) Description 09/27/2019 Abstract [facility] at [address] [address] Vasyl Billings MD 800 [place] [phone] Social History Tobacco Use Types Packs/Day Years [...] on filedocumented in this encounter Care Teams Screen Tender Helper Relationship Specialty Start Date End Date Mahi Gar PA 1 [place] [phone] PCP - General Otolaryngology 03/03/18 documented as of this encounter
[2024-05-13 14:06] VITALS: BP 139/78; PULSE 86; RESP 12; TEMP 36.4; O2SAT 94; BMI 21.8
== END 2024-05-13 14:44 | disposition home or self-care (01) ==
PROVIDERS: PCP Nurse Practitioner Family; Visit Provider Physician Assistant Medical
DX: J44.9 Chronic obstructive pulmonary disease, unspecified (principal); I67.1 Cerebral aneurysm, nonruptured; I10 Essential (primary) hypertension; Z72.0 Tobacco use

== ENCOUNTER → 2024-05-13 13:57 | Outpatient (BNVA) | payer MEDICARE, MEDICAID, SELFPAY | PROVIDERS: PCP Nurse Practitioner Family; Visit Provider Physician Assistant Medical | DX: J44.9 Chronic obstructive pulmonary disease, unspecified (principal); I67.1 Cerebral aneurysm, nonruptured; I10 Essential (primary) hypertension; Z72.0 Tobacco use | CPT/HCPCS: 96127; 99212 ==

== ENCOUNTER 2024-06-22 13:56 | Outpatient (REF) | payer MEDICARE, SELFPAY ==
--- NOTE | ~2024-06-22 | MM_ITS ---
EXAMINATION: DXA BONE DENSITY AXIAL HISTORY: Estrogen deficiency TECHNIQUE: Geogoer Dual energy absorptiometry (DEXA) of the lumbar spine, total left hip, and femoral neck was performed. COMPARISON: Comparison is made with the prior examination dated 05/13/2014. FINDINGS: The bone mineral density of the lumbar spine is 1.216 with a T-score of 0.4, and a Z-score of 2.1. This is indicative of normal bone mineral density. This represents a BMD change of 25.4% compared to the prior exam. This is statistically significant. The bone mineral density of the left total hip is 0.906 with a T-score of -0.8, and a Z-score of 0.7. This is indicative of normal bone mineral density. This represents a BMD change of 1.0% compared to the prior exam. This is not statistically significant. The bone mineral density of the left femoral neck is 0.914 with a T-score of -0.9, and a Z-score of 0.9. This is indicative of normal bone mineral density. This represents a BMD change of -0.4% compared to the prior exam. FRACTURE RISK: The FRAX index suggests a ten year probability of major osteoporotic fracture of 8.0%, and of hip fracture 1.4%. MM/XR DEXA axial skeleton IMPRESSION: Based on bone mineral density, and according to World Health Organization (WHO) criteria, the diagnosis is consistent with normal bone mineral density. All bone density values are in grams per centimeter squared (g/cm2). Statistically, 68% of repeat scans fall within 1 SD (+/- 0.010 g/cm2 for AP spine L1-L4) and 1 SD (+/- 0.012 g/cm2 for femur total) FRAX is a trademark of the [employer]'s [place] [employer] Metabolic Bone Disease, a World Health Organization (WHO) Collaborating Center. Electronically signed by: Pa Menjivar MD 06/22/2024 03:25 PM EDT
--- OUTSIDE RECORDS SUMMARY | 2024-06-22 17:20 | XMS_ITS | Encounter Summary ---
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 EFFECTIVE SINCE 01/30/2023 documented in this encounter Plan of Treatment Not on file documented as of this encounter Visit Diagnoses Not on filedocumented in this encounter
--- OUTSIDE RECORDS SUMMARY | 2024-06-22 17:20 | XMS_ITS | Encounter Summary ---
Author Organization [facility] Address [address] [place] [address] Care Team Providers Care Chief Bank Examiner Name Role Phone Mahi Gar Primary Care Provider Encounter Details Date Type Department Care Team (Late st Contact Info) Description 09/01/2018 Scanned Document [facility] at [address] [facility] [address] [facility] [place] [address] Vasyl Billings MD [address] [place] [address] Social History Tobacco Use Types [...] on filedocumented in this encounter Care Teams Chief Bank Examiner Relationship Specialty Start Date End Date Mahi Gar PA 1 [place] [phone] PCP - General Otolaryngology 03/03/18 documented as of this encounter
--- OUTSIDE RECORDS SUMMARY | 2024-06-22 17:20 | XMS_ITS | Encounter Summary ---
Author Organization [facility] Address 20 [place] [address] Care Team Providers Care Corporate Coordinator Name Role Phone Mahi Gar Primary Care Provider Encounter Details Date Type Department Care Team (Late st Contact Info) Description 09/01/2018 Scanned Document [facility] at [address] [facility] [address] [facility] [place] [address] Vasyl Billings MD [address] [place] [address] Social History Tobacco Use Types [...] on filedocumented in this encounter Care Teams Corporate Coordinator Relationship Specialty Start Date End Date Mahi Gar PA 1 [place] [phone] PCP - General Otolaryngology 03/03/18 documented as of this encounter
--- OUTSIDE RECORDS SUMMARY | 2024-06-22 17:20 | XMS_ITS | Encounter Summary ---
Author Organization [facility] Address 20 [place] [address] Care Team Providers Care Production Team Member Name Role Phone Mahi Gar Primary Care Provider Encounter Details Date Type Department Care Team (Late st Contact Info) Description 09/08/2018 Scanned Document [facility] [place] [address] [facility] [address] [place] [address] Vasyl Billings MD [address] [place] [address] Social History Tobacco Use Types [...] on filedocumented in this encounter Care Teams Production Team Member Relationship Specialty Start Date End Date Mahi Gar PA 1 [place] [phone] PCP - General Otolaryngology 03/03/18 documented as of this encounter
--- OUTSIDE RECORDS SUMMARY | 2024-06-22 17:20 | XMS_ITS | Clinical Summary ---
Author Organization [address] Address [address] [place] [phone] Phone Care Team Providers Care Nitriles Lab Technician Name Role Phone Mahi Gar Primary Care Provider [phone] Allergies Active Allergy Reactions Criticality Noted Date [...] Series) 10/29/2003 Osteoporosis screening (bone density) 2018 Pneumococcal Vaccine (50+ ye ars) (1 of 1 - PCV) 2018 Influenza vaccine 10/30/2023 Covid-19 vaccine series (1 - 2023-25 season) 2023 RSV Immunization (1 - 1-dose 75+ series) 2028 Cervical cancer screening Discontinued Meningococcal Vaccine Aged Out No parrish elle eligible based on patient's age to complete this topic Care Teams Nitriles Lab Technician Relationship Specialty Start Date End Date Mahi Gar PA [address] [place] [phone] PCP - General Otolaryngology 03/03/18
--- OUTSIDE RECORDS SUMMARY | 2024-06-22 17:20 | XMS_ITS | Encounter Summary ---
Author Organization [facility] Address 20 [place] [address] Care Team Providers Care Cyber Reverse Engineer Name Role Phone Mahi Gar Primary Care Provider [phone] Encounter Details Date Type Department Care Team (Late st Contact Info) Description 09/01/2018 Scanned Document [facility] at [address] [facility] [address] [facility] [place] [address] Vasyl Billings MD 800 [place] [address] Social History Tobacco Use Types [...] on filedocumented in this encounter Care Teams Cyber Reverse Engineer Relationship Specialty Start Date End Date Mahi Gar PA 1 [place] [phone] PCP - General Otolaryngology 03/03/18 documented as of this encounter
--- OUTSIDE RECORDS SUMMARY | 2024-06-22 17:20 | XMS_ITS | Encounter Summary ---
Author Organization [facility] Address 20 [place] [address] Care Team Providers Care Manager Services Name Role Phone Mahi Gar Primary Care Provider Encounter Details Date Type Department Care Team (Late st Contact Info) Description 09/01/2018 Scanned Document [facility] at 800 [facility] 800 [facility] [place] [address] Vasyl Billings MD [address] [place] [address] Social History Tobacco Use Types [...] on filedocumented in this encounter Care Teams Manager Services Relationship Specialty Start Date End Date Mahi Gar PA 1 [place] [phone] PCP - General Otolaryngology 03/03/18 documented as of this encounter
--- OUTSIDE RECORDS SUMMARY | 2024-06-22 17:20 | XMS_ITS | Encounter Summary ---
Author Organization [facility] Address 20 [place] [address] Care Team Providers Care Psych Tech Name Role Phone Mahi Gar Primary Care Provider Encounter Details Date Type Department Care Team (Late st Contact Info) Description 09/01/2018 Scanned Document [facility] at 800 [facility] 800 [facility] [place] [address] Vasyl Billings MD 800 [place] [phone] Social History Tobacco Use Types Packs/Day Years [...] on filedocumented in this encounter Care Teams Psych Tech Relationship Specialty Start Date End Date Mahi Gar PA 1 [place] [address] PCP - General Otolaryngology 03/03/18 documented as of this encounter
--- OUTSIDE RECORDS SUMMARY | 2024-06-22 17:20 | XMS_ITS | Clinical Summary ---
Author Organization [employer] Address [address] [place] [address] 7t [place] [address] Care Team Providers Care Fac Engineer Name Role Phone Unavailable Primary Care Provider [...]
--- OUTSIDE RECORDS SUMMARY | 2024-06-22 17:20 | XMS_ITS | Encounter Summary ---
Author Organization [facility] Address 20 [place] [address] Care Team Providers Care Painting Instructor Name Role Phone Mahi Gar Primary Care Provider [phone] Encounter Details Date Type Department Care Team (Late st Contact Info) Description 09/02/2018 Scanned Document [facility] [place] [address] [facility] [address] [place] [address] Vasyl Billings MD 800 [place] [address] Social History Tobacco Use Types [...] on filedocumented in this encounter Care Teams Painting Instructor Relationship Specialty Start Date End Date Mahi Gar PA 1 [place] [address] PCP - General Otolaryngology 03/03/18 documented as of this encounter
--- OUTSIDE RECORDS SUMMARY | 2024-06-22 17:20 | XMS_ITS | Encounter Summary ---
Author Organization [facility] Address [address] [place] [address] Care Team Providers Care Loss Prevention Investigator Name Role Phone Mahi Gar Primary Care Provider Encounter Details Date Type Department Care Team (Late st Contact Info) Description 09/27/2019 Abstract [facility] at [address] [address] Vasyl Billings MD 800 [place] [phone] Social History Tobacco Use Types Packs/Day Years [...] on filedocumented in this encounter Care Teams Loss Prevention Investigator Relationship Specialty Start Date End Date Mahi Gar PA 1 [place] [phone] PCP - General Otolaryngology 03/03/18 documented as of this encounter
--- OUTSIDE RECORDS SUMMARY | 2024-06-22 17:20 | XMS_ITS | Encounter Summary ---
Author Organization [facility] Address [address] [place] [address] Care Team Providers Care Inspector Brake Lining Name Role Phone Mahi Gar Primary Care Provider [phone] Encounter Details Date Type Department Care Team (Late st Contact Info) Description 09/01/2018 Scanned Document [facility] 800 [facility] 800 [facility] [place] [address] Vasyl Billings MD 800 [place] [address] Social History Tobacco Use Types [...] on filedocumented in this encounter Care Teams Inspector Brake Lining Relationship Specialty Start Date End Date Mahi Gar PA 1 [place] [phone] PCP - General Otolaryngology 03/03/18 documented as of this encounter
== END 2024-06-22 13:57 | disposition home or self-care (01) ==
LOC: HO.MAMMO 13:56
PROVIDERS: PCP Physician Assistant Medical; Visit Provider Physician Assistant Medical
DX: Z12.31 Encounter for screening mammogram for malignant neoplasm of breast (principal); Z13.820 Encounter for screening for osteoporosis; Z78.0 Asymptomatic menopausal state
CPT/HCPCS: 77063; 77067; 77080

== ENCOUNTER → 2024-06-22 14:30 | Outpatient (BNV) | payer MEDICARE, SELFPAY | PROVIDERS: PCP Physician Assistant Medical; Visit Provider Radiology Diagnostic Radiology | DX: E28.39 Other primary ovarian failure (principal) | CPT/HCPCS: 77080 ==

== ENCOUNTER 2024-07-03 15:52 | Outpatient (REF) | payer MEDICARE, SELFPAY ==
--- NOTE | ~2024-07-03 | MR_ITS ---
EXAMINATION: MR ANGIOGRAPHY BRAIN WITHOUT AND WITH CONTRAST CLINICAL INFORMATION: Coiled aneurysm in 2017. COMPARISON: March 17, 2014. TECHNIQUE: Axial 3-D [id number] and maximum intensity projections with contrast. Total of 6 cc gadolinium based given without reported immediate complications. FINDINGS: Anterior cerebral circulation: ICAs: There is a 16 mm IV contrast enhanced/. Saccular abnormality at the 8:00 position of the supraclinoid segment left ICA. No focal stenosis. No abrupt cut off. Normal enhancement pattern. MCA's: Normal enhancement pattern. No focal stenosis. No abrupt cut off. No vascular irregularity. Bifurcation/trifurcation demonstrated no IV contrast enhancing lesion. ACAs: Normal patency. No focal stenosis. No abrupt cut off. Anterior communicating artery is present without vascular irregularity. The ophthalmic arteries are patent. The origin of the left is not fully depicted. There is a robust left posterior communicating artery. The right posterior communicating artery is not enhanced.. Posterior cerebral circulation: V3/V4 segments: Normal patency. No focal stenosis. No intimal flap. Right vertebral artery is dominant. Posterior inferior cerebellar arteries are patent without vascular irregularity at the origin. The left vertebral artery ends in the left PICA. Basilar artery: Normal patency. No focal stenosis. No intimal flap. Superior cerebellar arteries are patent. canal structure operator: Left P1 segment is absent/atretic. There is no focal stenosis or abrupt cut off. 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 origin left [employer]. Dominant right vertebral artery. Left vertebral artery ends in the left PICA. Electronically signed by: Rolf Lemus MD 07/05/2024 08:35 AM EDT
--- OUTSIDE RECORDS SUMMARY | 2024-07-03 16:06 | XMS_ITS | Encounter Summary ---
Author Organization [facility] Address 20 [place] [address] Care Team Providers Care Health Insurance Specialist Name Role Phone Mahi Gar Primary Care Provider Encounter Details Date Type Department Care Team (Late st Contact Info) Description 09/08/2018 Scanned Document [facility] [place] [address] [facility] [address] [place] [address] Vasyl Billings MD 800 [place] [address] Social History Tobacco Use Types [...] on filedocumented in this encounter Care Teams Health Insurance Specialist Relationship Specialty Start Date End Date Mahi Gar PA 1 [place] [phone] PCP - General Otolaryngology 03/03/18 documented as of this encounter
--- OUTSIDE RECORDS SUMMARY | 2024-07-03 16:06 | XMS_ITS | Encounter Summary ---
Author Organization [facility] Address 20 [place] [address] Care Team Providers Care Ap Operator Name Role Phone Mahi Gar Primary Care Provider [phone] Encounter Details Date Type Department Care Team (Late st Contact Info) Description 09/01/2018 Scanned Document [facility] at [address] [facility] [address] [facility] [address] Vasyl Billings MD [address] [place] [address] Social History Tobacco Use Types [...] on filedocumented in this encounter Care Teams Ap Operator Relationship Specialty Start Date End Date Mahi Gar PA 1 [place] [phone] PCP - General Otolaryngology 03/03/18 documented as of this encounter
--- OUTSIDE RECORDS SUMMARY | 2024-07-03 16:06 | XMS_ITS | Clinical Summary ---
Author Organization [employer] Address [address] [place] [address] 7t [place] [address] Care Team Providers Care Frame Table Operator Name Role Phone Unavailable Primary Care [...]
--- OUTSIDE RECORDS SUMMARY | 2024-07-03 16:06 | XMS_ITS | Encounter Summary ---
Author Organization [facility] Address 20 [place] [address] Care Team Providers Care Industrial Twisting Machine Operator Name Role Phone Mahi Gar Primary Care Provider Encounter Details Date Type Department Care Team (Late st Contact Info) Description 09/01/2018 Scanned Document [facility] at 800 [facility] 800 [facility] [place] [address] Vasyl Billings MD 800 [place] [address] Social History Tobacco Use Types [...] on filedocumented in this encounter Care Teams Industrial Twisting Machine Operator Relationship Specialty Start Date End Date Mahi Gar PA 1 [place] [phone] PCP - General Otolaryngology 03/03/18 documented as of this encounter
--- OUTSIDE RECORDS SUMMARY | 2024-07-03 16:06 | XMS_ITS | Encounter Summary ---
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 EFFECTIVE SINCE 01/30/2023 documented in this encounter Plan of Treatment Not on file documented as of this encounter Visit Diagnoses Not on filedocumented in this encounter
--- OUTSIDE RECORDS SUMMARY | 2024-07-03 16:06 | XMS_ITS | Encounter Summary ---
Author Organization [facility] Address [address] [place] [address] Care Team Providers Care Emg Technician Name Role Phone Mahi Gar Primary Care Provider Encounter Details Date Type Department Care Team (Late st Contact Info) Description 09/27/2019 Abstract [facility] at [address] [address] Vasyl Billings MD [address] [place] [phone] Social History Tobacco Use Types Packs/Day Years [...] on filedocumented in this encounter Care Teams Emg Technician Relationship Specialty Start Date End Date Mahi Gar PA 1 [place] [phone] PCP - General Otolaryngology 03/03/18 documented as of this encounter
--- OUTSIDE RECORDS SUMMARY | 2024-07-03 16:06 | XMS_ITS | Encounter Summary ---
Author Organization [facility] Address [address] [place] [address] Care Team Providers Care Dining Room Maid Name Role Phone Mahi Gar Primary Care Provider Encounter Details Date Type Department Care Team (Late st Contact Info) Description 09/01/2018 Scanned Document [facility] at 800 [facility] 800 [facility] [place] [address] Vasyl Billings MD 800 [place] [address] Social History Tobacco Use Types [...] on filedocumented in this encounter Care Teams Dining Room Maid Relationship Specialty Start Date End Date Mahi Gar PA 1 [place] [phone] PCP - General Otolaryngology 03/03/18 documented as of this encounter
--- OUTSIDE RECORDS SUMMARY | 2024-07-03 16:06 | XMS_ITS | Clinical Summary ---
Author Organization [address] Address [address] [place] [address] Phone Care Team Providers Care Salesperson Women'S Dresses Name Role Phone Mahi Gar Primary Care [...] cancer screening, Colonoscopy 1998 Diabetes screening 1998 Pneumococcal Vaccine (50+ ye ars) (1 of 1 - PCV) 10/29/2003 Shingles vaccine (Shingrix) (1 of 2 - Shingrix (RZV) 2 Dose Standard Series) 10/29/2003 Osteoporosis screening (bone density) 2018 Covid-19 vaccine series (1 - 2023- season) 2023 Influenza vaccine 11/29/2024 RSV Immunization (1 - 1-dose 75+ series) 2028 Cervical cancer screening Discontinued Meningococcal Vaccine Aged Out No parrish elle eligible based on patient's age to complete this topic Care Teams Salesperson Women'S Dresses Relationship Specialty Start Date End Date Mahi Gar PA [address] [place] [phone] PCP - General Otolaryngology 03/03/18
--- OUTSIDE RECORDS SUMMARY | 2024-07-03 16:06 | XMS_ITS | Encounter Summary ---
Author Organization [facility] Address [address] [place] [address] Care Team Providers Care Team Truck Driver Name Role Phone Mahi Gar Primary Care Provider Encounter Details Date Type Department Care Team (Late st Contact Info) Description 09/01/2018 Scanned Document [facility] at 800 [facility] 800 [facility] [place] [address] Vasyl Billings MD [address] [place] [address] Social History Tobacco Use Types [...] on filedocumented in this encounter Care Teams Team Truck Driver Relationship Specialty Start Date End Date Mahi Gar PA 1 [place] [phone] PCP - General Otolaryngology 03/03/18 documented as of this encounter
--- OUTSIDE RECORDS SUMMARY | 2024-07-03 16:07 | XMS_ITS | Encounter Summary ---
Author Organization [facility] and [facility] Address [address] [place] [address] Care Team Providers Care Soldering Inspector Name Role Phone Mahi Gar Primary Care Provider Encounter Details Date Type Department Care Team (Late st Contact Info) Description 09/01/2018 Scanned Document [facility] [address] [facility] [address] [facility] [place] [address] Vasyl Billings MD [address] [place] [phone] Social History Tobacco Use Types Packs/Day Years [...] on filedocumented in this encounter Care Teams Soldering Inspector Relationship Specialty Start Date End Date Mahi Gar PA [address] [place] [address] PCP - General Otolaryngology 03/03/18 documented as of this encounter
--- OUTSIDE RECORDS SUMMARY | 2024-07-03 16:07 | XMS_ITS | Encounter Summary ---
Author Organization [facility] and [facility] Address [address] [place] [address] Care Team Providers Care Ems Director Name Role Phone Mahi Gar Primary Care Provider Encounter Details Date Type Department Care Team (Late st Contact Info) Description 09/01/2018 Scanned Document [facility] [address] [facility] [address] [facility] [place] [address] Vasyl Billings MD [address] [place] [address] Social History Tobacco Use Types [...] on filedocumented in this encounter Care Teams Ems Director Relationship Specialty Start Date End Date Mahi Gar PA [address] [place] [phone] PCP - General Otolaryngology 03/03/18 documented as of this encounter
--- OUTSIDE RECORDS SUMMARY | 2024-07-03 16:07 | XMS_ITS | Encounter Summary ---
Author Organization [facility] and [facility] Address [address] [place] [address] Care Team Providers Care Material Control Associate Name Role Phone Mahi Gar Primary Care Provider Encounter Details Date Type Department Care Team (Late st Contact Info) Description 09/02/2018 Scanned Document [facility] at [place] [address] [facility] [address] [place] [id number] Vasyl Billings MD [address] [place] [address] Social History Tobacco Use Types [...] on filedocumented in this encounter Care Teams Material Control Associate Relationship Specialty Start Date End Date Mahi Gar PA [address] [place] [address] PCP - General Otolaryngology 03/03/18 documented as of this encounter
[2024-07-03] MEDS: gadobutroL 7.5 ML VIAL IVPUSH (17:14)
== END 2024-07-03 15:53 | disposition home or self-care (01) ==
LOC: HO.MRI 15:52
PROVIDERS: PCP Physician Assistant Medical; Visit Provider Physician Assistant Medical
DX: Z98.890 Other specified postprocedural states (principal)
CPT/HCPCS: 70546; A9585

== ENCOUNTER → 2024-07-03 15:52 | Outpatient (BNV) | payer MEDICARE, SELFPAY | PROVIDERS: PCP Physician Assistant Medical; Visit Provider Radiology Diagnostic Radiology | DX: I72.0 Aneurysm of carotid artery (principal) | CPT/HCPCS: 70546 ==

== ENCOUNTER 2024-08-31 12:47 | Outpatient (REF) | payer MEDICARE, SELFPAY ==
--- NOTE | 2024-08-31 12:53 | PFT_ITS ---
Flows: FEV1: 82% of predicted at 1.97 L FVC: 114 % of predicted at 3.58 L FEV1/FVC: 55 % Bronchodilator response: Present Volumes: Total lung capacity: 97 % of predicted at 5.32 L Residual volume: 86 % of predicted at 1.88 L Slow vital capacity: 105 % of predicted at 3.45 L Expiratory reserve volume: 106% of predicted at 0.87 L Diffusion capacity: Normal Impression: [id number]-rq-[id number] obstructive ventilatory defect with positive bronchodilator response. MTDD
[2024-08-31 13:44] VITALS: PULSE 99; O2SAT 96
--- OUTSIDE RECORDS SUMMARY | 2024-08-31 14:06 | XMS_ITS | Encounter Summary ---
Author Organization [facility] and [facility] Address [address] [place] [address] Care Team Providers Care Senior Bi Architect Name Role Phone Mahi Gar Primary Care Provider Encounter Details Date Type Department Care Team (Late st Contact Info) Description 09/01/2018 Scanned Document [facility] [address] [facility] [address] [facility] [place] [address] Vasyl Billings MD [address] [place] [address] Social History Tobacco Use Types [...] on filedocumented in this encounter Care Teams Senior Bi Architect Relationship Specialty Start Date End Date Mahi Gar PA [address] [place] [phone] PCP - General Otolaryngology 03/03/18 documented as of this encounter
== END 2024-08-31 12:48 | disposition home or self-care (01) ==
LOC: HO.RESP 12:47
PROVIDERS: PCP Physician Assistant Medical; Visit Provider Physician Assistant Medical
DX: J44.9 Chronic obstructive pulmonary disease, unspecified (principal)
CPT/HCPCS: 94010; 94640; 94727; 94729

== ENCOUNTER → 2024-08-31 12:53 | Outpatient (BNV) | payer MEDICARE, SELFPAY | PROVIDERS: PCP Physician Assistant Medical; Visit Provider Internal Medicine Pulmonary Disease | DX: J44.9 Chronic obstructive pulmonary disease, unspecified (principal) | CPT/HCPCS: 94060; 94727; 94729 ==

== ENCOUNTER 2024-09-15 08:24 | Outpatient (AMB) | payer MEDICARE, SELFPAY ==
--- NOTE | 2024-09-15 08:26 | MHC.OFFVIS ---
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 She is doing well with director of primary concerns: Has a an occasional external itching, history of lichen sclerosus. Currently has no medication on hand. Currently not sexually active. Denies any vaginal dryness or irritation. STI testing offered; she accepts. Attempting to eat a healthy diet with calcium and vitamin D and stays active with exercise. Last pap smear; 2018 and 2014, negative cytology, no HPV report available. Last mammogram; 2024. Colonoscopy is UTD. Denies any family history of ovarian or colon cancer. FH breast cancer. [facility] Medical History (Updated 09/15/24 @ 09:04 by Margie Burdick CNM) Lichen sclerosus of vulva Tobacco use Brain aneurysm Hypertension COPD (chronic obstructive pulmonary disease) Surgical History S/P coil embolization of cerebral aneurysm Hx of coil occlusion of patent ductus arteriosus Family History Father Hypertension Mother Hypertension Diabetes Cardiovascular disease Breast cancer Alcoholism Social History Household Members: None Both parents involved: No Caregiver staying overnight: No Housing: Apartment Are you a primary day care aide to a significant other at home: No Do you presently have visiting nurse or other home services: No 75 years or older and lives alone: No Alcohol intake: current Alcohol intake frequency: a few times a week Alcohol type: beer and wine Patient Tobacco Use Status: Current everyday Tobacco user Tobacco use type: Cigarette Cigarettes Per Day: 4 Years Smoked: 20 e-Cigarette/Vaping Use: Never Used Second Hand Smoke Exposure: No Substance Use Type: Marijuana service: No Current occupational status: retired Cognitive needs: No Hearing needs: No Vision needs: No Female Reproductive History Menstrual Menopause type: natural Total pregnancies: 3 Full term: 3 Number of Living Children: 3 Date of Mammogram: 06/22/24 (Birad 1) Date of last Bone Density Screenin06/22/24 Review of Systems Const All systems reviewed & are unremarkable except as noted in HPI and below Reports as per HPI Eyes Reports no additional complaints ENT Reports no additional complaints Card Reports no additional complaints Resp Reports no additional complaints GI Reports as per HPI and Reports no additional complaints Reports as per HPI Musc Reports no additional complaints Skin/Breast Reports as per HPI Neuro Reports no additional complaints Psych Reports no additional complaints Endo Reports no additional complaints Leonardo/Lymph Reports no additional complaints Aller/Immun Reports no additional complaints Physical Exam Vital Signs: Last Vital Signs BP 114/70 09/15/24 08:27 BMI result Body Mass Index 20.7 Const General: cooperative, healthy appearing, no acute distress, well developed and alert Orientation/consciousness: patient oriented x3 HEENT Head: Yes normal to inspection Eyes General: appearance normal, both eyes and all related structures Neck Neck: Yes normal visual inspection Thyroid: Thyroid normal Chest Chest palpation & inspection: normal inspection of the chest and other (no puckering, dimpling, peau de orange, retraction, discharge, masses) Breast/axilla inspection: normal inspection of the breasts Breast/axilla palpation: normal palpation of the breasts Resp Effort & Inspection: normal respiratory effort GI Inspection: Yes normal to inspection Palpation (GI): Soft to palpation Rectal Exam - Female: deferred Other: Lichen sclerosus changes of the vulva predominantly around the sinai clitoral and right labia minora, no lesions, excoriations, thickening or parchment. Loss of architecture, atrophic changes. General: Yes bladder normal to palpation External Female Exam: normal external appearance and normal appearance of the urethra Speculum Exam - Vagina: normal palpation, vagina atrophic and other (Bled slightly with Pap) Speculum Exam - Cervix: normal appearance of the cervix and normal palpation Bimanual exam- vagina & uterus: normal bimanual exam, normal palpation, uterine size normal, bladder normal to palpation, normal palpation and non-tender Bimanual Exam- Adnexa, other: no masses Skin General skin exam: no rashes or lesions noted Rashes: no rashes Neuro General: patient oriented x3 Cognition (Neuro): normal cognition Extrem General: Yes normal to inspection Psych Attitude: cooperative Thought process: Normal thought process present Assessment & Plan Assessment & Plan (1) Encounter for well woman exam with routine gynecological exam: Code(s): Z01.419 - Encounter for gynecological examination (general) (routine) without abnormal findings Category: Medical Plan: Discussed: Current recommendations for pap smears per ASCCP guidelines. Pap obtained. Breast awareness, periodic self breast exams and yearly mammogram. Maintain a healthy lifestyle, well balanced diet including Calcium 1,200 mg and Vitamin D 600 IU daily, and routine exercise. Use of condoms for STI prevention if indicated. Contact the office with any postmenopausal bleeding. Patient verbalizes understanding and agrees to the plan of care. She was given opportunity to ask questions and all questions were answered to the best of my ability. RTO in 1 year for annual director of primary exam. This note is constructed using voice recognition software. While every effort has been made to ensure accuracy, park recreation manager errors may have been included. (2) Possible exposure to STD: Code(s): Z20.2 - Contact with and (suspected) exposure to infections with a predominantly sexual mode of transmission (3) Lichen sclerosus of vulva: Code(s): N90.4 - Leukoplakia of vulva Category: Medical Plan: Discuss: Treatment option, agrees to use sporadically as needed for any symptoms. Advised to call the office for further eval if symptoms are not improve with treatment. Rx sent to pharmacy. Long-term untreated LS can be linked to development of vulvar cancer, importance of medication use to prevent progression. The patient expressed understanding and agreement with the plan of care. All of her questions and concerns were addressed to the best of my ability. Total time I personally spent on visit and management today: ?15 minutes. Time spent included review of pertinent office notes in the electronic health record; review of laboratory and imaging results; review of personal family medical history; performing physical exam; discussing diagnosis and plan of care with the patient; documenting the encounter in the EMR. Plan Lab work ordered, await results for plan of care. Safe sex condoms if indicated. Instructions for lab reviewed. The patient expressed understanding and agreement with the plan of care. All of her questions and concerns were addressed to the best of my ability. Orders: Orders Syphilis Screen Today Z20.2 - Contact with and (suspected) exposure to infections with a predominantly sexual mode of transmission Hepatitis B Core Antibody Today Z20.2 - Contact with and (suspected) exposure to infections with a predominantly sexual mode of transmission CT NG by PCR Today Z20.2 - Contact with and (suspected) exposure to infections with a predominantly sexual mode of transmission HIV Ab/Ag Today Z20.2 - Contact with and (suspected) exposure to infections with a predominantly sexual mode of transmission Hepatitis C Antibody Reflex Today Z20.2 - Contact with and (suspected) exposure to infections with a predominantly sexual mode of transmission HPV High risk Today Z01.419 - Encounter for gynecological examination (general) (routine) without abnormal findings Pap Smear Today Z419 - Encounter for gynecological examination (general) (routine) without abnormal findings Medications: New betamethasone valerate 0.1% apply a thin coat to the area for several days until symptoms resolve 1 appl topical .twice weekly PRN 45 grams 1RF chronic skin irritation 90 days Coding Level of Care Code New Pt Level 2 (88294) New Pt Prev Care >65yr (14696) Diagnoses Encounter for well woman exam with routine gynecological exam Z01. Possible exposure to STD Z20.2 Lichen sclerosus of vulva N90.4
[2024-09-15 08:27] VITALS: BP 114/70; BMI 20.7
--- OUTSIDE RECORDS SUMMARY | 2024-09-15 08:42 | XMS_ITS | Encounter Summary ---
Author Organization [facility] and [facility] Address [address] [place] [address] Care Team Providers Care Yarn Twister Name Role Phone Mahi Gar Primary Care Provider Encounter Details Date Type Department Care Team (Late st Contact Info) Description 09/01/2018 Scanned Document [facility] at [address] [facility] [address] [facility] [place] [address] Vasyl Billings MD [address] [place] [address] Social History Tobacco Use Types [...] on filedocumented in this encounter Care Teams Yarn Twister Relationship Specialty Start Date End Date Mahi Gar PA [address] [place] [phone] PCP - General Otolaryngology 03/03/18 documented as of this encounter
== END 2024-09-15 09:25 | disposition home or self-care (01) ==
LOC: HO.HWS 08:24
PROVIDERS: PCP Physician Assistant Medical; Visit Provider Advanced Practice Midwife
DX: Z01.419 Encounter for gynecological examination (general) (routine) without abnormal findings (principal); Z20.2 Contact with and (suspected) exposure to infections with a predominantly sexual mode of transmission; N90.4 Leukoplakia of vulva
CPT/HCPCS: 99212; 99387; 99459

== ENCOUNTER 2024-09-15 08:24 | Outpatient (REF) | payer MEDICARE, SELFPAY ==
[2024-09-20 13:42] LABS: HPV Genotype 16 Negative (Negative); HPV Genotype 18 Negative (Negative); HPV High Risk Negative (Negative)
== END 2024-09-15 08:25 | disposition home or self-care (01) ==
LOC: HO.LNP 08:24
PROVIDERS: PCP Physician Assistant Medical; Visit Provider Advanced Practice Midwife
DX: Z01.419 Encounter for gynecological examination (general) (routine) without abnormal findings (principal); Z20.2 Contact with and (suspected) exposure to infections with a predominantly sexual mode of transmission; N90.4 Leukoplakia of vulva
CPT/HCPCS: 87626; 88175; 99212; 99387

== ENCOUNTER 2024-09-23 15:07 | Outpatient (AMB) | payer MEDICARE, SELFPAY ==
--- NOTE | 2024-09-23 15:18 | MHC.PC.OV ---
Vital Signs 09/23/24 15:22 Height 5 ft 7.25 in Weight 132 lb 6 oz BMI 20.6 BP 126/78 Blood Pressure Location Rt brachial Position Sitting Respiration 14 Pulse 77 Pulse Source Pulse Oximeter Temp 98.6 F Temp Source Temporal Artery Scan Pulse Oximetry (%) 96 Oxygen Delivery Method Room Air Intake Visit Reasons: follow up Intake Note: Court presents in the office today for a follow up. Allergies Penicillins (PENICILLINS) Allergy (Severe, Verified 09/23/24 15:20) THROAT SWELLING penicillin V Allergy (Unknown, Verified 09/23/24 15:20) throat swelling Tobacco use date assessed: 09/23/24 Fall risk assessment: No Falls in past year Last assessed Fall Risk: 09/23/24 Dental Screening Dental Screen Date: 09/23/24 Did you have a dental visit in the last 12 months?: Yes Did you have a dental problem in the last 6 months where you did not have access to dental care?: No Was dental information given to patient?: Patient has dentist HPI HPI Comments History of Present Illness Details This is a 68-year-old female with a past medical history of hypertension, tobacco use disorder, COPD and brain aneurysm presenting for follow up. 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 She lives in [place]. Hypertension treated with amlodipine 5 mg daily. Previously she was on Lopressor, but she had side effects including fatigue and dizziness so it was discontinued. She walks her dog daily. Her blood pressure is well-controlled. COPD-Chest x-ray 12/05/2023 normal. PFT 08/31/2024 showed [id number] obstructive ventilatory defect with positive bronchodilator response. She has been referred anew to pulmonology, and she has an appointment 11/15/2024. She denies chest pain, shortness of breath, productive cough, hemoptysis. She started smoking at age 18 and quit at age 28. She started smoking again at age 48 and has continued. Currently smokes 3-4 cigarettes per day, but previously smoked half to a pack sometimes. She has an albuterol inhaler to use as needed. Typically requires this in fall and spring. Denies hospital admissions for COPD or interval systemic steroids. In 2016 she had a brain aneurysm coiled. Dr. Billings did the surgery. She was lost to follow up because he left the practice, and her insurance lapsed. She denies headaches, dizziness, vision changes, weakness. She was seen by [facility] neuro endovascular surgery 08/04/2024 after having an MRA of the head for aneurysm surveillance which showed a 1.6 mm residual aneurysm. The plan is for short interval follow up in 3 months with MRA of the head with contrast for surveillance. Patient had a normal bone density exam and mammogram in 2024. She also saw Gynecology for her annual exam. She declined colonoscopy against my recommendation. She has the Cologuard, but she did not do it yet. Denies family history of colon cancer. She has never had a colonoscopy. She endorses unintentional weight loss since last fall. Her weight patient's weight was 146 lb and 2 oz on 12/05/2023, and today she has 132 lb and 6 oz. Patient reports a very good appetite. She denies abdominal pain, but she says sometimes after eating she feels a fullness in her left lower quadrant. Denies nausea, vomiting, blood in stools, diarrhea, epigastric pain, night sweats, fevers or chills. Denies increased fatigue. She had lab orders placed, but she did not have them done yet. She does plan to do this next week. Patient endorses right knee pain and mild swelling at times which is worse with activity. It is better when she uses NSAIDs. She endorses back pain and intermittent numbness and tingling going down the left leg. She also endorses stiffness in her neck with intermittent numbness and tingling on the left side of the neck that goes down her arm. Denies weakness in her legs or arms. Denies trauma. ROS: Constitutional: No fever, chills, fatigue or night sweats. Eyes: No vision changes, blurry vision, double vision, eye pain, eye redness, eye discharge. Respiratory: No shortness of breath, cough or sputum production. Cardiovascular: No chest pain, chest pressure or chest discomfort. No palpitations or pedal edema. Gastrointestinal: No anorexia, nausea, vomiting or diarrhea. No abdominal pain or blood in stool. Denies early satiety. Genitourinary: No dysuria, hematuria, urinary frequency. Neurologic: No headache, dizziness, syncope, unilateral weakness, ataxia, see HPI Musculoskeletal: see HPI Hematologic/Lymphatics: No bleeding or bruising. No painful lymph nodes. Skin: No rash or itching. Physical exam: Constitutional: Alert, in no distress. Eyes: Pupils are equal, round and reactive to light. Extraocular muscles intact. Neck: Supple, Full range of motion. No lymphadenopathy. No palpable thyroid masses. Respiratory: Clear to auscultation. Cardiovascular: S1 S2 regular. No murmurs. Gastrointestinal: Abdomen soft, +mild tenderness of the left lower quadrant, non-distended. No rebound or guarding or rigidity. Normal bowel sounds. No palpable masses. Genitourinary: No costovertebral angle tenderness. Neurologic: No focal neurological deficits. Skin: No rashes Musculoskeletal: Neck stiffness and discomfort with rotation of the cervical spine. Full range of motion of the lumbar spine. No midline spinal tenderness. There is mild swelling of the right medial aspect of the knee. It is nontender to palpation. Full range of motion of the knees. No joint crepitus. Upper and lower extremity strength 5/5 bilaterally. Handgrip strength 5/5 bilaterally. Sensation intact bilaterally upper and lower extremities. Symmetric patellar reflexes. Extremities: Warm and well perfused. No clubbing, cyanosis or edema. Psychiatric: Normal mood and affect [facility] Medical History (Updated 09/23/24 @ 16:01 by MEGHNA Delgado) Abdominal discomfort Weight loss Right knee pain Low back pain Cervical radiculitis Lichen sclerosus of vulva Tobacco use Brain aneurysm Hypertension COPD (chronic obstructive pulmonary disease) Surgical History S/P coil embolization of cerebral aneurysm Hx of coil occlusion of patent ductus arteriosus Family History Father Hypertension Mother Hypertension Diabetes Cardiovascular disease Breast cancer Alcoholism Social History Household Members: None Both parents involved: No Caregiver staying overnight: No Housing: Apartment Are you a primary director of critical care to a significant other at home: No Do you presently have visiting nurse or other home services: No 75 years or older and lives alone: No Alcohol intake: current Alcohol intake frequency: a few times a week Alcohol type: beer and wine Patient Tobacco Use Status: Current everyday Tobacco user Tobacco use type: Cigarette Cigarettes Per Day: 4 Years Smoked: 20 e-Cigarette/Vaping Use: Never Used Second Hand Smoke Exposure: No Substance Use Type: Marijuana service: No Current occupational status: retired Cognitive needs: No Hearing needs: No Vision needs: No Questionnaire Thrive Questionnaire Date Thrive assessed: 05/13/24 I am a: Patient What is your living situation today?: I have a steady place to live Within the past 12 months, did the food you bought not last and you didn't have the money to get more?: Never true Within the past 12 months, did you worry whether your food would run out before you got money to buy more?: Never true Do you have trouble paying for medicines?: No Do you have trouble getting transportation to medical appointments?: No Do you have trouble paying your heating and electricity bill?: No Do you have trouble taking care of your child, family member or friend?: No Do you have trouble with day-to-day activities such as bathing, preparing meals, shopping, managing finances, etc.?: No Are you currently unemployed and looking for a job?: No Are you interested in more education?: No Please select the resources that you would like help with: None Currently or been in a relationship where the following occur: No concerns reported THRIVE Score: 0 JEVON-7 AMB Questionnaire JEVON-7 Date JEVON - 7 assessed: 05/13/24 Source: Developed by Drs. Pa Kat, Renu Dover, Akin Rose and colleagues, with an educational babar from [facility]. Physical exam (Primary Care) Vital Signs: Last Vital Signs Temp 98.6 F 09/23/24 15:22 Pulse 77 09/23/24 15:22 Resp 14 09/23/24 15:22 BP 126/78 09/23/24 15:22 Pulse Ox 96 09/23/24 15:22 Oxygen Delivery Method Room Air 09/23/24 15:22 BMI result Body Mass Index 20.6 Tobacco/Smoking Status: Tobacco use Status Tobacco use date assessed 09/23/24 09/23/24 15:26 Patient Tobacco Use Status Current everyday Tobacco 09/23/24 15:26 Tobacco use type Cigarette 09/23/24 15:26 e-Cigarette/Vaping Use Never Used 09/23/24 15:26 Thrive Assessment: Date of Thrive Assessment Date Thrive assessed 05/13/24 09/23/24 15:26 Currently or been in a relationship where the following occur: No concerns reported Coding Level of Care Code Est Pt Level 5 (26937) Complex EM visit Add On G2211 Diagnoses Weight loss R63.4 COPD (chronic obstructive pulmonary disease) J44.9 Brain aneurysm I67.1 Hypertension I10 Tobacco use Z72.0 Abdominal discomfort R10.9 Low back pain M54.50 Right knee pain M25.561 Cervical radiculitis M54.12 Time Spent (min) 45 Comment Direct patient care, chart review, completing documentation Assessment & Plan Assessment & Plan (1) Weight loss: Code(s): R63.4 - Abnormal weight loss Category: Medical Plan: Patient agreed to have lab work done next week. See detailed lab orders in the EMR. Increase protein intake. Given left lower quadrant discomfort on exam and feeling of fullness after eating I placed an order for a CT of the abdomen and pelvis with IV and oral contrast. She has the Cologuard or colonoscopy may be required for further evaluation and referral to Gastroenterology. (2) COPD (chronic obstructive pulmonary disease): Code(s): J44.9 - Chronic obstructive pulmonary disease, unspecified Category: Medical Plan: Patient currently asymptomatic. Continue albuterol 2 puffs every 4 hours as needed for coughing, wheezing or shortness of breath. She has an appointment with pulmonology. Strongly recommended smoking cessation. She previously declined to LDCT. (3) Brain aneurysm: Code(s): I67.1 - Cerebral aneurysm, nonruptured Category: Medical Plan: She will follow up with Neurosurgery for surveillance imaging in 3 months as planned. (4) Hypertension: Code(s): I10 - Essential (primary) hypertension Category: Medical Plan: Controlled. Continue amlodipine. (5) Tobacco use: Code(s): Z72.0 - Tobacco use Category: Social Hx Plan: Strongly recommended smoking cessation. Discussed risks of tobacco use with the patient. (6) Abdominal discomfort: Code(s): R10.9 - Unspecified abdominal pain Category: Medical (7) Low back pain: Code(s): M54.50 - Low back pain, unspecified Category: Medical Plan: Check x-ray of the lumbar spine. Recommended referral to Orthopedics. She will let me know where she wants to be seen. (8) Right knee pain: Code(s): M25.561 - Pain in right knee Category: Medical Plan: Check x-ray. See above notes regarding orthopedic referral. Ordered diclofenac gel. (9) Cervical radiculitis: Code(s): M54.12 - Radiculopathy, cervical region Category: Medical Plan: Check x-ray. See above notes regarding orthopedic referral. Plan Tentative follow up appointment in 8 weeks. Orders: Orders XR lumbar spine 2-3V Today M54.50 - Low back pain, unspecified, R63.4 - Abnormal weight loss XR cervical spine 4V Today M54.12 - Radiculopathy, cervical region, R63.4 - Abnormal weight loss XR knee RT 3V Today M25.561 - Pain in right knee, R63.4 - Abnormal weight loss Lipase Today R63.4 - Abnormal weight loss Amylase Today R63.4 - Abnormal weight loss UA w Microscopic Today R63.4 - Abnormal weight loss, Z72.0 - Tobacco use Urine Culture Today R63.4 - Abnormal weight loss, Z72.0 - Tobacco use CT abdomen pelvis w IV con Today R10.9 - Unspecified abdominal pain, R63.4 - Abnormal weight loss Medications: New barium sulfate 2.1%(w/v),2.0%(w/w) Follow instructions per radiology. 900 mL 0RF diclofenac sodium 1% (Voltaren Arthritis Pain) apply 4 g to each affected area up to 4 times daily; maximum dose per joint: 16 g/day; maximum total body dose (all combined joints): 32 g/day 100 grams 2RF
[2024-09-23 15:22] VITALS: BP 126/78; PULSE 77; RESP 14; TEMP 37; O2SAT 96; BMI 20.6
--- OUTSIDE RECORDS SUMMARY | 2024-09-23 18:21 | XMS_ITS | Encounter Summary ---
Author Organization [facility] and [facility] Address [address] [place] [address] Care Team Providers Care Manager Document Control Name Role Phone Mahi Gar Primary Care Provider Encounter Details Date Type Department Care Team (Late st Contact Info) Description 09/01/2018 Scanned Document [facility] [address] [facility] [address] [facility] [place] [address] Vasyl Billings MD [address] [place] [address] Social History Tobacco Use Types [...] filedocumented in this encounter Care Teams Manager Document Control Relationship Specialty Start Date End Date Mahi Gar PA [address] [place] [id number] PCP - General Otolaryngology 03/03/18 documented as of this encounter
== END 2024-09-23 15:57 | disposition home or self-care (01) ==
LOC: HO.HMCFM 15:08
PROVIDERS: PCP Physician Assistant Medical; Visit Provider Physician Assistant Medical
DX: R63.4 Abnormal weight loss (principal); J44.9 Chronic obstructive pulmonary disease, unspecified; I67.1 Cerebral aneurysm, nonruptured; I10 Essential (primary) hypertension; Z72.0 Tobacco use; R10.9 Unspecified abdominal pain; M54.50 Low back pain, unspecified; M25.561 Pain in right knee; M54.12 Radiculopathy, cervical region

== ENCOUNTER → 2024-09-23 15:07 | Outpatient (BNVA) | payer MEDICARE, SELFPAY | PROVIDERS: PCP Physician Assistant Medical; Visit Provider Physician Assistant Medical | DX: R63.4 Abnormal weight loss (principal); J44.9 Chronic obstructive pulmonary disease, unspecified; I67.1 Cerebral aneurysm, nonruptured; I10 Essential (primary) hypertension; Z72.0 Tobacco use; R10.9 Unspecified abdominal pain; M54.50 Low back pain, unspecified; M25.561 Pain in right knee; M54.12 Radiculopathy, cervical region | CPT/HCPCS: 99212 ==

== ENCOUNTER 2024-11-22 07:04 | Outpatient (REF) | payer MEDICARE, SELFPAY ==
--- NOTE | ~2024-11-22 | XR_ITS ---
EXAMINATION: XR KNEE, RIGHT CLINICAL INFORMATION: M25.561 - Pain in right knee COMPARISON: None available. TECHNIQUE: Three views of the right knee. FINDINGS: No fracture, dislocation, or suspicious bone lesion. There is normal alignment. There is subtle chondrocalcinosis in the medial and lateral compartment joint spaces. Gross preservation of medial and lateral compartment joint spaces. Mild patellofemoral compartment narrowing. Mild spurring of the tibial spines. There is enthesopathic spurring of the superior patella. There is no joint effusion. The soft tissues appear normal. XR/XR knee RT 3V IMPRESSION: 1. No acute bony abnormalities of the right knee. 2. Mild chondrocalcinosis. Mild joint space narrowing in the patellofemoral compartment. Electronically signed by: Serafin Mendosa MD 11/22/2024 08:29 AM EDT
--- NOTE | ~2024-11-22 | XR_ITS ---
EXAMINATION: XR CERVICAL SPINE CLINICAL INFORMATION: M54.12 - Radiculopathy, cervical region COMPARISON: None available. TECHNIQUE: 5 views of the cervical spine were obtained, inclusive of bilateral oblique views.. FINDINGS: There is a minimal left convex scoliosis. There is straightening of the normal lordosis. There is no fracture, compression deformity, or suspicious bone lesion. C1-C2 articulation and craniocervical junction are intact and aligned. There is a 3 mm degenerative appearing anterolisthesis of C3 on C4, and trace retrolisthesis of C4 on C5. 3 mm degenerative appearing anterolisthesis of C7 on T1. There is moderate to severe disc degeneration spanning C4-C7 with ventral flowing disc osteophytes present. Facets are normally aligned. There are multilevel left greater than right degenerative hypertrophic facet changes present. Oblique views demonstrate severe left neural foraminal narrowing at C3-4. There is moderate right neural foraminal narrowing at C4-5. There is no prevertebral soft tissue abnormality. There is a left parasellar coil mass incidentally noted. XR/XR cervical spine 4V IMPRESSION: 1. No acute bony abnormalities. 2. Moderate degenerative spondylosis. Electronically signed by: Serafin Mendosa MD 11/22/2024 08:50 AM EDT
--- NOTE | ~2024-11-22 | XR_ITS ---
EXAMINATION: XR LUMBOSACRAL SPINE CLINICAL INFORMATION: M54.50 - Low back pain, unspecified COMPARISON: None available. TECHNIQUE: Three views of the lumbosacral spine. FINDINGS: There is a mild levoconvex scoliosis apex at L3. There is a normal lumbar lordosis. No fracture, compression deformity, or suspicious bone lesion. There is a 4 mm degenerative appearing retrolisthesis of L1 upon L2. There is an 11 mm spondylolisthesis L5 on S1. There are bilateral L5 pars defects. Severe disc degeneration L1-2 and L5-S1. Otherwise mild disc degeneration. Sclerosis of the endplates at L1-2. Soft tissues demonstrate early vascular calcifications. XR/XR lumbar spine 2-3V IMPRESSION: 1. Moderate spondylosis of the lumbar spine. No acute bony abnormalities. 2. There is a grade 1, 11 mm spondylolisthesis L5-S1. Electronically signed by: Serafin Mendosa MD 11/22/2024 08:43 AM EDT
--- OUTSIDE RECORDS SUMMARY | 2024-11-22 07:07 | XMS_ITS | Clinical Summary ---
Author Organization [employer] Address [address] [place] [address] [address] [place] [address] Care Team Providers Care Real Estate Salesperson Name Role Phone Unavailable Primary Care Provider [...] 2023-2 5 season) 2023 Influenza Vaccine (#1) 2024 RSV Patients and Pa tients Aged 60 [...] patient's age to complete this topic Meningococcal B Vaccine Aged Out No l onger eligible based on patient's age to complete [...]
[2024-11-22 07:34] LABS: MANUAL DIFF FLAG NO
[2024-11-22 07:53] LABS: Hematocrit 40.1 % (37.0-47.0); Hemoglobin 13.5 g/dl (12.0-16.0); Imm Gran Abs Auto 0.01 X10*3/uL (0.00-0.03); Imm Gran Pct Auto 0.2 % (0.0-0.4); Lymphocytes Absolute Auto 1.4 X10*3/uL (1.2-4.9); Mean Corpuscular HGB Conc 33.7 g/dl (31.0-35.0); Mean Corpuscular Hemoglobin 32.6 pg (27.0-33.0); Mean Corpuscular Volume 96.9 fL (80.0-98.0); NRBC Abs Auto 0.000 X10*3/uL (0.0-0.012); NRBC Pct Auto 0.0 /100WBC (0.0-0.2); Platelet Count 188 X10*3/uL (160-400); Red Blood Count 4.14 X10*6/uL (4.20-5.50); White Blood Count 4.4 X10*3/uL (4.8-10.8)
[2024-11-22 08:18] LABS: Appearance Urine Clear; Glucose Urine UA Negative (Negative); PH 6.5 (5.0-9.0); Specific Gravity - Urine 1.015 (1.005-1.025); UMIC TRIGGER UA YES
[2024-11-22 08:28] LABS: Alanine Aminotransferase 13 U/L (0-31); Albumin Level 4.0 g/dL (3.5-5.0); Alkaline Phosphatase 80 U/L (39-117); Amylase 25 U/L (28-100); Anion Gap 10 (12-20); Aspartate Amino Transferase 22 U/L (5-31); Blood Urea Nitrogen 19 mg/dL (9-16); Calcium 8.7 mg/dL (8.4-10.2); Carbon Dioxide 26 mmol/L (22-29); Chloride 109 mmol/L (96-108); Cholesterol 228 mg/dL (<200); Estimated Glomerular Filt Rate > 60; HDL Cholesterol 62 mg/dL (>40); Lipase 32 U/L (8-78); Potassium 4.3 mmol/L (3.3-5.1); Sodium 141 mmol/L (135-145); Total Protein 6.5 g/dL (6.5-8.0); Triglycerides 127 mg/dL (<150)
[2024-11-22 08:39] LABS: Syphilis Screen Nonreactive (Nonreactive)
[2024-11-22 08:41] LABS: HBc Num1 0.03 S/CO (0.00-0.79); HIV Num 1 0.04 S/CO (0.00-0.99); ~HepC Num1 0.09 S/CO (0.00-0.79); ~Hepatitis C Antibody Nonreactive (Nonreactive)
== END 2024-11-22 07:05 | disposition home or self-care (01) ==
LOC: HO.LAB 07:04
PROVIDERS: Absent Provider Advanced Practice Midwife; PCP Physician Assistant Medical; Visit Provider Physician Assistant Medical
DX: M54.12 Radiculopathy, cervical region (principal); I67.1 Cerebral aneurysm, nonruptured; J44.9 Chronic obstructive pulmonary disease, unspecified; R63.4 Abnormal weight loss; M54.50 Low back pain, unspecified; M25.561 Pain in right knee; Z20.2 Contact with and (suspected) exposure to infections with a predominantly sexual mode of transmission; Z13.6 Encounter for screening for cardiovascular disorders
CPT/HCPCS: 36415; 72050; 72100; 73562; 80053; 80061; 81001; 82150; 83690; 84443; 85025; 86704; 86780; 86803; 87086; 87389

== ENCOUNTER → 2024-11-22 07:37 | Outpatient (BNV) | payer MEDICARE, SELFPAY | PROVIDERS: Absent Provider Advanced Practice Midwife; PCP Physician Assistant Medical; Visit Provider Radiology Diagnostic Radiology | DX: M47.22 Other spondylosis with radiculopathy, cervical region (principal); M47.816 Spondylosis without myelopathy or radiculopathy, lumbar region; M25.561 Pain in right knee | CPT/HCPCS: 72050; 72100; 73562 ==

== ENCOUNTER 2024-12-07 15:19 | Outpatient (AMB) | payer MEDICARE, SELFPAY ==
--- NOTE | 2024-12-07 15:20 | MHC.OFFVIS ---
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 diclofenac sodium 1% (Voltaren Arthritis Pain) apply 4 g to each affected area up to 4 times daily; maximum dose per joint: 16 g/day; maximum total body dose (all combined joints): 32 g/day HPI HPI COPD: Details: THIS 69 YEARS OLD FEMALE IS NEW TO ME. SHE IS HERE FOR MANAGEMENT OF HER CHRONIC OBSTRUCTIVE PULMONARY DISEASE. 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 .RETIRED ABOUT 5 OR 6 YEARS AGO HAS HISTORY OF SMOKING SINCE YOUNGER AGE. SMOKED HALF TO 1 PACK A DAY FOR ABOUT 10-15 YEARS. THEN SHE QUIT FOR A WHILE , AND RESTARTED SMOKING AT AGE 48 . ON AN AVERAGE SHE SMOKES ABOUT HALF PACK OF CIGARETTES A DAY. 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 FROM HER ONGOING SMOKING HER SYMPTOMS INCLUDE INTERMITTENT COUGH, AND MILD SHORTNESS OF BREATH ON MODERATELY HEAVY EXERTION. COUGH IS MOST LIKELY AFTER SMOKING OR IF SHE HAS ANY UPPER RESPIRATORY INFECTION. SHORTNESS OF BREATH IS ON WALKING UP HILL OR CLIMBING 1 OR 2 FLIGHTS OF STAIRS. SHE CAN WALK ON LEVEL GROUND A FEW BLOCKS WITHOUT SHORTNESS OF BREATH. SHE IS AWARE OF THE FACT THAT HER SHORTNESS OF BREATH IS GRADUALLY GETTING WORSE. SHE HAD PULMONARY FUNCTION TEST RECENTLY AT OUR OFFICE AND WE WILL GO OVER THE RESULTS. AT PRESENT SHE HAS ALBUTEROL HFA ON HAND AND USES ONLY ONCE IN A WHILE. SHE IS HERE TODAY TO DISCUSS ABOUT HER PULMONARY ISSUES AND ONGOING MANAGEMENT. [facility] Medical History Hyperlipidemia IFG (impaired fasting glucose) Lumbosacral radiculitis Abdominal discomfort Weight loss Right knee pain Low back pain Cervical radiculitis Lichen sclerosus of vulva Tobacco use Brain aneurysm Hypertension COPD (chronic obstructive pulmonary disease) Surgical History S/P coil embolization of cerebral aneurysm Hx of coil occlusion of patent ductus arteriosus Family History Father Hypertension Mother Hypertension Diabetes Cardiovascular disease Breast cancer Alcoholism Social History Household Members: None Both parents involved: No Caregiver staying overnight: No Housing: Apartment Are you a primary home health care provider to a significant other at home: No Do you presently have visiting nurse or other home services: No 75 years or older and lives alone: No Alcohol intake: current Alcohol intake frequency: a few times a week Alcohol type: beer and wine Patient Tobacco Use Status: Current everyday Tobacco user Tobacco use type: Cigarette Cigarettes Per Day: 4 Years Smoked: 20 e-Cigarette/Vaping Use: Never Used Second Hand Smoke Exposure: No Substance Use Type: Marijuana service: No Current occupational status: retired Cognitive needs: No Hearing needs: No Vision needs: No Review of Systems Const All systems reviewed & are unremarkable except as noted in HPI and below Reports headache(s) (OFF AND ON) ENT Reports no additional complaints, Reports headache(s) (OFF AND ON) and Reports neck pain Card Denies chest pain, Denies irregular heart rhythm and Denies leg edema Resp Reports as per HPI GI Reports no additional complaints Reports no additional complaints Musc Reports back pain and Reports neck pain Skin/Breast Reports system reviewed and no additional complaints, except as documented Neuro Reports headache(s) (OFF AND ON) Psych Reports no additional complaints Endo Reports no additional complaints Leonardo/Lymph Reports no additional complaints Aller/Immun Reports no additional complaints Physical Exam Vital Signs: Last Vital Signs Pulse 91 12/07/24 15:22 BP 118/60 12/07/24 15:22 Pulse Ox 95 12/07/24 15:22 Oxygen Delivery Method Room Air 12/07/24 15:22 Const General: healthy appearing, comfortable, no acute distress, alert and awake Orientation/consciousness: patient oriented x3 HEENT Head: Yes normal to inspection General nose exam: No nasal polyps present and No nasal discharge present Face and sinus: Yes sinuses nontender Mouth: oropharynx normal Throat: Yes posterior oropharynx normal Eyes General: appearance normal, both eyes and all related structures Neck Neck: Yes normal visual inspection, Yes no lymphadenopathy, Yes trachea midline and Yes no JVD Thyroid: Thyroid normal Chest Chest palpation & inspection: normal inspection of the chest, normal palpation of entire chest wall and no tenderness Resp Other: PERCUSSION NOTE IS RESONANT, BREATH SOUNDS ARE EQUAL ON BOTH SIDES. THERE ARE A FEW EXPIRATORY WHEEZES OVER THE POSTERIOR ASPECT OF HER CHEST IN UPPER PARTS. Cardio Palpation: normal PMI Rate: regular rate Rhythm: regular rhythm Heart sounds: no gallops and no murmurs Peripheral pulses: Peripheral pulses 2+ throughout GI Palpation (GI): Soft to palpation, Tenderness to palpation present (GI), No hepatosplenomegaly present and Palpable mass present Auscultation: normal bowel sounds Back/Spine/Pelvis Thoracic/Lumbar Spine: thoracic and lumbar spine normal to inspection Skin General skin exam: no rashes or lesions noted Neuro General: patient oriented x3 and no focal motor deficits Cranial nerves: Yes CN's II-XII intact bilaterally Extrem General: Yes normal to inspection, Yes no clubbing, cyanosis or edema and Yes no calf tenderness Psych Speech and movement: Normal speech and movement present Results Reviewed Results Reviewed: PULMONARY FUNCTION TEST ON 08/31/2021. MILD OBSTRUCTIVE AIRWAY DISORDER, WITH POSITIVE BUT MINIMAL RESPONSE TO BRONCHODILATOR THERAPY. Assessment & Plan Assessment & Plan (1) COPD (chronic obstructive pulmonary disease): Comment: SHE HAS BEEN A SMOKER OVER THE PAST MANY YEARS. SHE DOES, HAVE MILD SYMPTOMS AND PER PULMONARY FUNCTION TEST SHE DOES HAVE MILD OBSTRUCTIVE AIRWAY DISORDER. SHE IS GETTING COUGH AND SOME SHORTNESS OF BREATH ON EXERTION Code(s): J44.9 - Chronic obstructive pulmonary disease, unspecified Category: Medical Plan: HAD A DETAILED CONVERSATION WITH HER ABOUT. 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 AND USE ALBUTEROL HFA 2 PUFFS Q 6 HOURS ONLY P.R.N. (2) Tobacco use: Comment: SHE DOES HAVE HISTORY OF SMOKING FROM EARLY AGE, QUIT FOR A WHILE BUT THEN RESUMED SMOKING AT AGE 48. CURRENTLY SMOKING UP TO HALF PACK A DAY. Code(s): Z72.0 - Tobacco use Category: Social Hx Plan: COUNSELED TO TRY QUITTING COMPLETELY, AND IF NOT COMPLETELY AT LEAST SHE SHOULD CUT DOWN THE NUMBER OF CIGARETTES. SHE IS WELL EDUCATED AND AWARE OF THE ILL EFFECTS FROM CONTINUED SMOKING. I TALKED TO HER ABOUT ANNUAL LUNG SCREENING WITH LDCT AND SHE IS AGREEABLE. Medications: New fluticasone propion-salmeterol 100-50 mcg/dose (Advair Diskus) 1 inh inhalation BID 60 ea 4RF COPD 30 days Refilled albuterol sulfate 90 mcg/actuation 2 puffs inhalation Q6H PRN 8.5 grams 4RF shortness of breath or wheezing Coding Level of Care Code New Pt Level 3 (25026) Diagnoses COPD (chronic obstructive pulmonary disease) J44.9 Tobacco use Z72.0
[2024-12-07 15:22] VITALS: BP 118/60; PULSE 91; O2SAT 95
--- OUTSIDE RECORDS SUMMARY | 2024-12-07 17:37 | XMS_ITS | Encounter Summary ---
Author Organization [facility] and [facility] Address [address] [place] [address] Care Team Providers Care Cooker Meal Name Role Phone Mahi Gar Primary Care Provider [phone] Encounter Details Date Type Department Care Team (Late st Contact Info) Description 09/01/2018 Scanned Document [facility] [address] [facility] [address] [facility] [place] [address] Vasyl Billings MD [address] [place] [address] Social History Tobacco Use Types [...] on filedocumented in this encounter Care Teams Cooker Meal Relationship Specialty Start Date End Date Mahi Gar PA [address] [place] [phone] PCP - General Otolaryngology 03/03/18 documented as of this encounter
--- OUTSIDE RECORDS SUMMARY | 2024-12-07 17:37 | XMS_ITS | Clinical Summary ---
Author Organization [address] Address [address] [place] [phone] Phone Care Team Providers Care Server Programmer Name Role Phone Mahi Gar Primary Care Provider [phone] Allergies Active Allergy Reactions Criticality Noted Date [...] density) 2018 Covid-19 vaccine series (1 - season) 2024 Influenza vaccine 11/29/2024 RSV Immunization (1 - 1-dose 75+ series) 2028 Cervical cancer screening Discontinued Meningococcal B Vaccine Aged Out No l onger eligible based on patient's age to complete this topic Meningococcal Vaccine Aged Out No parrish elle eligible based on patient's age to complete this topic Care Teams Server Programmer Relationship Specialty Start Date End Date Mahi Gar PA [address] [place] [phone] PCP - General Otolaryngology 03/03/18
--- OUTSIDE RECORDS SUMMARY | 2024-12-07 17:37 | XMS_ITS | Encounter Summary ---
Author Organization [facility] and [facility] Address [address] [place] [address] Care Team Providers Care Oncologist Name Role Phone Mahi Gar Primary Care Provider Encounter Details Date Type Department Care Team (Late st Contact Info) Description 09/08/2018 Scanned Document [facility] [place] [address] [facility] [address] [place] [address] Vasyl Billings MD [address] [place] [address] Social History Tobacco Use Types [...] on filedocumented in this encounter Care Teams Oncologist Relationship Specialty Start Date End Date Mahi Gar PA [address] [place] [phone] PCP - General Otolaryngology 03/03/18 documented as of this encounter
--- OUTSIDE RECORDS SUMMARY | 2024-12-07 17:37 | XMS_ITS | Encounter Summary ---
Author Organization [facility] and [facility] Address [address] [place] [address] Care Team Providers Care Emergency Room Clinician Name Role Phone Mahi Gar Primary Care Provider Encounter Details Date Type Department Care Team (Late st Contact Info) Description 09/01/2018 Scanned Document [facility] [address] [facility] [address] [facility] [place] [address] Vasyl Billings MD [address] [place] [address] Social History Tobacco Use Types [...] on filedocumented in this encounter Care Teams Emergency Room Clinician Relationship Specialty Start Date End Date Mahi Gar PA [address] [place] [phone] PCP - General Otolaryngology 03/03/18 documented as of this encounter
--- OUTSIDE RECORDS SUMMARY | 2024-12-07 17:37 | XMS_ITS | Encounter Summary ---
Author Organization [facility] and [facility] Address [address] [place] [address] Care Team Providers Care Coating Mixer Tender Name Role Phone Mahi Gar Primary Care Provider Encounter Details Date Type Department Care Team (Late st Contact Info) Description 09/01/2018 Scanned Document [facility] [address] [facility] [address] [facility] [place] [address] Vasyl Billings MD [address] [place] [address] Social History Tobacco Use Types [...] on filedocumented in this encounter Care Teams Coating Mixer Tender Relationship Specialty Start Date End Date Mahi Gar PA [address] [place] [phone] PCP - General Otolaryngology 03/03/18 documented as of this encounter
--- OUTSIDE RECORDS SUMMARY | 2024-12-07 17:37 | XMS_ITS | Encounter Summary ---
Author Organization [facility] and [facility] Address [address] [place] [address] Care Team Providers Care Cookie Padder Name Role Phone Mahi Gar Primary Care Provider Encounter Details Date Type Department Care Team (Late st Contact Info) Description 09/01/2018 Scanned Document [facility] [address] [facility] [address] [facility] [place] [address] Vasyl Billings MD [address] [place] [address] Social History Tobacco Use Types [...] on filedocumented in this encounter Care Teams Cookie Padder Relationship Specialty Start Date End Date Mahi Gar PA [address] [place] [phone] PCP - General Otolaryngology 03/03/18 documented as of this encounter
--- OUTSIDE RECORDS SUMMARY | 2024-12-07 17:37 | XMS_ITS | Encounter Summary ---
Author Organization [facility] and [facility] Address [address] [place] [address] Care Team Providers Care Supervisor Benzene Refining Name Role Phone Mahi Gar Primary Care Provider Encounter Details Date Type Department Care Team (Late st Contact Info) Description 09/27/2019 Abstract [facility] at [address] [address] Vasyl Billings MD [address] [place] [phone] Social History Tobacco Use Types Packs/Day Years [...] on filedocumented in this encounter Care Teams Supervisor Benzene Refining Relationship Specialty Start Date End Date Mahi Gar PA [address] [place] [phone] PCP - General Otolaryngology 03/03/18 documented as of this encounter
--- OUTSIDE RECORDS SUMMARY | 2024-12-07 17:38 | XMS_ITS | Encounter Summary ---
Author Organization [facility] and [facility] Address [address] [place] [address] Care Team Providers Care Counter Pocket Sewer Name Role Phone Mahi Gar Primary Care Provider Encounter Details Date Type Department Care Team (Late st Contact Info) Description 09/02/2018 Scanned Document [facility] [place] [address] [facility] [address] [place] [address] Vasyl Billings MD [address] [place] [address] Social History Tobacco Use Types [...] on filedocumented in this encounter Care Teams Counter Pocket Sewer Relationship Specialty Start Date End Date Mahi Gar PA [address] [place] [address] PCP - General Otolaryngology 03/03/18 documented as of this encounter
--- OUTSIDE RECORDS SUMMARY | 2024-12-07 17:38 | XMS_ITS | Encounter Summary ---
Author Organization [facility] and [facility] Address [address] [place] [address] Care Team Providers Care Greeter Name Role Phone Mahi Gar Primary Care Provider Encounter Details Date Type Department Care Team (Late st Contact Info) Description 09/01/2018 Scanned Document [facility] [address] [facility] [address] [facility] [place] [address] Vasyl Billings MD [address] [place] [address] Social History Tobacco Use Types [...] on filedocumented in this encounter Care Teams Greeter Relationship Specialty Start Date End Date Mahi Gar PA [address] [place] [phone] PCP - General Otolaryngology 03/03/18 documented as of this encounter
--- OUTSIDE RECORDS SUMMARY | 2024-12-07 17:38 | XMS_ITS | Encounter Summary ---
Author Organization [facility] and [facility] Address [address] [place] [address] Care Team Providers Care Material Stress Tester Name Role Phone Mahi Gar Primary Care Provider Encounter Details Date Type Department Care Team (Late st Contact Info) Description 09/01/2018 Scanned Document [facility] [address] [facility] [address] [facility] [place] [address] Vasyl Billings MD [address] [place] [phone] Social History Tobacco Use Types Packs/Day Years [...] filedocumented in this encounter Care Teams Material Stress Tester Relationship Specialty Start Date End Date Mahi Gar PA [address] [place] [address] PCP - General Otolaryngology 03/03/18 documented as of this encounter
== END 2024-12-07 16:00 | disposition home or self-care (01) ==
LOC: HO.HPS 15:19
PROVIDERS: PCP Physician Assistant Medical; Referring Provider Physician Assistant Medical; Visit Provider Internal Medicine
DX: J44.9 Chronic obstructive pulmonary disease, unspecified (principal); Z72.0 Tobacco use
CPT/HCPCS: 99203

== ENCOUNTER → 2024-12-07 15:19 | Outpatient (BNVA) | payer MEDICARE, SELFPAY | PROVIDERS: PCP Physician Assistant Medical; Referring Provider Physician Assistant Medical; Visit Provider Internal Medicine | DX: J44.9 Chronic obstructive pulmonary disease, unspecified (principal); Z72.0 Tobacco use; R05.9 Cough, unspecified; R06.02 Shortness of breath | CPT/HCPCS: 99202 ==

== ENCOUNTER 2024-12-23 09:06 | Outpatient (AMB) | payer MEDICARE, SELFPAY ==
--- NOTE | 2024-12-23 09:09 | A.OFFPC_ITS ---
Vital Signs 12/23/24 09:13 Height 5 ft 7.2 in Weight 134 lb 4 oz BMI 20.9 BP 134/66 Blood Pressure Location Lt brachial Position Sitting Respiration 14 Pulse 69 Pulse Source Pulse Oximeter Temp 97.9 F Temp Source Temporal Artery Scan Pulse Oximetry (%) 97 Oxygen Delivery Method Room Air Intake Visit Reasons: follow-up and PT rerferral Intake Note: Court presents in the office today for a follow up to discuss PT. Allergies Penicillins (PENICILLINS) Allergy (Severe, Verified 12/23/24 09:11) THROAT SWELLING penicillin V Allergy (Unknown, Verified 12/23/24 09:11) throat swelling Tobacco use date assessed: 12/23/24 Fall risk assessment: No Falls in past year Last assessed Fall Risk: 12/23/24 Dental Screening Dental Screen Date: 12/23/24 Did you have a dental visit in the last 12 months?: Yes Did you have a dental problem in the last 6 months where you did not have access to dental care?: No Was dental information given to patient?: Patient has dentist HPI HPI Comments History of Present Illness Details This is a 69-year-old female with a past medical history of hypertension, tobacco use disorder, COPD and brain aneurysm presenting for follow up. 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 She lives in [place]. Hypertension treated with amlodipine 5 mg daily. Previously she was on Lopresso r, but she had side effects including fatigue and dizziness so it was discontinued. She walks her dog daily. COPD-Chest x-ray 12/05/2023 normal. PFT 08/31/2024 showed [id number] obstructive ventilatory defect with positive bronchodilator response. Currently smokes 3-4 cigarettes per day, but previously smoked half to a pack sometimes. She has an albuterol inhaler to use as needed. Typically requires this in fall and spring. Denies hospital admissions for COPD or interval systemic steroids. She saw pulmonology 12/17/2024. She was started on Advair Diskus for increasing cough. In 2016 she had a brain aneurysm coiled. Dr. Billings did the surgery. She was lost to follow up because he left the practice, and her insurance lapsed. She was seen by [facility] neuro endovascular surgery 08/04/2024 after having an MRA of the head for aneurysm surveillance which showed a 1.6 mm residual aneurysm. The plan was for short interval follow up in 3 months with MRA of the head with contrast for surveillance. At her appointment in August this year she endorsed unintentional weight loss since last fall. Her weight patient's weight was 146 lb and 2 oz on 12/05/2023, and at that visit it was 132 lb and 6 oz. Patient reports a very good appetite. Today her weight is 134 lb 4 oz. She denies abdominal pain, but continues to say that sometimes after eating she feels a fullness in her left lower quadrant. Denies nausea, vomiting, blood in stools, diarrhea, epigastric pain, night sweats, fevers or chills. She had blood work done on 11/22/2024 which showed a mildly decreased white blood cell count of 4400 and red blood cell count of 4.14 with normal hemoglobin, hematocrit and platelet levels. Her white blood cell count differential was normal. Her glucose level was elevated at 128. Renal and hepatic function were normal. There was no elevation of her pancreatic enzymes. TSH was normal. Testing for hepatitis-C and HIV were negative. I ordered a CAT scan of the abdomen and pelvis with contrast that was scheduled this month, but she did not go to the appointment. Patient says she had guests over and forgot about this. Patient endorses right knee pain and mild swelling at times which is worse with activity. It is better when she uses NSAIDs. She endorses back pain and intermittent numbness and tingling going down the left leg. She also endorses stiffness in her neck with intermittent numbness and tingling on the left side of the neck that goes down her arm. Denies weakness in her legs or arms. Denies trauma. At her visit in August she also endorsed right knee pain with activity that was better with NSAIDs as well as lower back pain with intermittent numbness and tingling going down the left leg and stiffness in her neck with intermittent numbness and tingling on the left side of the neck that goes down her arm. At that time she denied weakness in her arms or legs or trauma. X-ray of the knee, lumbar spine and cervical spine were completed on 11/22/2024. The x-ray of her knee demonstrated mild chondrocalcinosis and joint space narrowing in the patellofemoral compartment. X-ray of the cervical spine demonstrated multilevel spondylosis including moderate to severe disc degeneration spanning C4-C7 with hypertrophic facet changes, and severe left neural foraminal narrowing at C3-C4 and moderate right neuroforaminal narrowing at C4-C5. The x-ray of her lumbar spine demonstrated moderate spondylosis with grade 1 spondylolisthesis at L5-S1. MRI of the lumbar spine was scheduled on 12/19/2024, but this was canceled. The insurance does not cover the MRI of the cervical spine until she tries physical therapy. She prefers to get the MRI of the lumbar spine and cervical spine done together. In addition to these symptoms patient says she is experiencing increased pain and some weakness in her hips including on the sides of the hips and groin and in the shoulder joints and upper arms. She endorses fatigue. Patient says she did have to tick bites within the past year but no bull's-eye rash or fevers associated with this. Patient had a normal bone density exam and mammogram in 2024. She also saw Gynecology for her annual exam. She declined colonoscopy against my recommendation. She has the Cologuard, but she did not do it yet. Denies family history of colon cancer. She has never had a colonoscopy. She has hyperlipidemia, but she does not want to take any medications for this. ROS: Constitutional: No fever, chills, or night sweats. Weight loss stabilized. Eyes: No vision changes, blurry vision, double vision, eye pain, eye redness, eye discharge. Denies temporal headaches. Respiratory: No shortness of breath, cough or sputum production. Cardiovascular: No chest pain, chest pressure or chest discomfort. No palpitations or pedal edema. Gastrointestinal: No anorexia, nausea, vomiting or diarrhea. No abdominal pain or blood in stool. Denies early satiety. Genitourinary: No dysuria, hematuria, urinary frequency. Neurologic: No headache, dizziness, syncope, unilateral weakness, ataxia, see HPI Musculoskeletal: see HPI Hematologic/Lymphatics: No bleeding or bruising. No painful lymph nodes. Skin: No rash or itching. Physical exam: Constitutional: Alert, in no distress. Eyes: Pupils are equal, round and reactive to light. Extraocular muscles intact. Neck: Supple, Full range of motion. No lymphadenopathy. No palpable thyroid masses. Respiratory: Clear to auscultation. Cardiovascular: S1 S2 regular. No murmurs. Gastrointestinal: Abdomen soft, +mild tenderness of the left lower quadrant, non-distended. No rebound or guarding or rigidity. Normal bowel sounds. No palpable masses. Skin: No rashes Musculoskeletal: Neck stiffness and discomfort with rotation of the cervical spine. No midline spinal tenderness. There is mild swelling of the right medial aspect of the knee. It is nontender to palpation. Full range of motion of the knees. No joint crepitus. Upper and lower extremity strength 5/5 bilaterally. Handgrip strength 5/5 bilaterally. Sensation intact bilaterally upper and lower extremities. Symmetric patellar reflexes. Hips nontender, but she has pain with internal rotation of the hip joints. There is no crepitus. Her gait is normal. Extremities: Warm and well perfused. No clubbing, cyanosis or edema. Psychiatric: Normal mood and affect [facility] Medical History (Updated 12/24/24 @ 12:44 by MEGHNA Delgado) Myalgia Bilateral hip pain Postmenopausal Lichen sclerosus of vulva (~2014) Nicotine dependence, cigarettes, uncomplicated Hyperlipidemia IFG (impaired fasting glucose) Lumbosacral radiculitis Abdominal discomfort Weight loss Right knee pain Low back pain Cervical radiculitis Brain aneurysm Hypertension COPD (chronic obstructive pulmonary disease) Surgical History (Updated 12/20/24 @ 10:46 by Connie Walton PA-C) History of biopsy S/P coil embolization of cerebral aneurysm Hx of coil occlusion of patent ductus arteriosus Family History Father Hypertension Mother Hypertension Diabetes Cardiovascular disease Breast cancer Alcoholism Social History (Updated 12/23/24 @ 09:12 by Victoria Portillo CMA) Household Members: None Both parents involved: No Caregiver staying overnight: No Housing: Apartment Are you a primary student career development specialist to a significant other at home: No Do you presently have visiting nurse or other home services: No 75 years or older and lives alone: No Alcohol intake: current Alcohol intake frequency: a few times a week Alcohol type: beer and wine Patient Tobacco Use Status: Current everyday Tobacco user Tobacco use type: Cigarette Cigarettes Per Day: 4 Years Smoked: 20 e-Cigarette/Vaping Use: Never Used Second Hand Smoke Exposure: No Substance Use Type: Marijuana service: No Current occupational status: retired Cognitive needs: No Hearing needs: No Vision needs: No Questionnaire Thrive Questionnaire Date Thrive assessed: 05/13/24 I am a: Patient What is your living situation today?: I have a steady place to live Within the past 12 months, did the food you bought not last and you didn't have the money to get more?: Never true Within the past 12 months, did you worry whether your food would run out before you got money to buy more?: Never true Do you have trouble paying for medicines?: No Do you have trouble getting transportation to medical appointments?: No Do you have trouble paying your heating and electricity bill?: No Do you have trouble taking care of your child, family member or friend?: No Do you have trouble with day-to-day activities such as bathing, preparing meals, shopping, managing finances, etc.?: No Are you currently unemployed and looking for a job?: No Are you interested in more education?: No Please select the resources that you would like help with: None Currently or been in a relationship where the following occur: No concerns reported THRIVE Score: 0 JEVON-7 AMB Questionnaire JEVON-7 Date JEVON - 7 assessed: 05/13/24 Source: Developed by Drs. Pa Kat, Renu Dover, Akin Rose and colleagues, with an educational babar from [employer]. Physical exam (Primary Care) Vital Signs: Last Vital Signs Temp 97.9 F 12/23/24 09:13 Pulse 69 12/23/24 09:13 Resp 14 12/23/24 09:13 BP 134/66 12/23/24 09:13 Pulse Ox 97 12/23/24 09:13 Oxygen Delivery Method Room Air 12/23/24 09:13 BMI result Body Mass Index 20.9 Tobacco/Smoking Status: Tobacco use Status Tobacco use date assessed 12/23/24 12/23/24 09:16 Patient Tobacco Use Status Current everyday Tobacco 12/23/24 09:12 Tobacco use type Cigarette 12/23/24 09:12 e-Cigarette/Vaping Use Never Used 12/23/24 09:12 Thrive Assessment: Date of Thrive Assessment Date Thrive assessed 05/13/24 12/23/24 09:11 Currently or been in a relationship where the following occur: No concerns reported Coding Level of Care Code Est Pt Level 5 (96004) Complex EM visit Add On G2211 Diagnoses Weight loss R63.4 COPD (chronic obstructive pulmonary disease) J44.9 Brain aneurysm I67.1 Primary hypertension I10 Hypertension type: primary hypertension Low back pain M54.50 Cervical radiculitis M54.12 Myalgia M79.10 Bilateral hip pain M25.551; M25.552 Time Spent (min) 58 Comment Direct patient care, completing documentation, chart review Assessment & Plan Assessment & Plan (1) Weight loss: Code(s): R63.4 - Abnormal weight loss Category: Medical Plan: Weight stabilized. Given left lower quadrant discomfort on exam and feeling of fullness I still want her to have the CT abdomen and pelvis with IV contrast done. She is going to call radiology to reschedule it. I explained the importance of this to the patient. She did not complete Cologuard which I encouraged her to do. We will discuss referral to Gastroenterology pending results of CT scan. (2) COPD (chronic obstructive pulmonary disease): Comment: PFT shows mild Obstructive Airway disorder, symptoms mild- cough/SOB on exertion Code(s): J44.9 - Chronic obstructive pulmonary disease, unspecified Category: Medical Plan: Followed by pulmonology. Continue current medications. Strongly recommended smoking cessation. She declined to LDCT. (3) Brain aneurysm: Code(s): I67.1 - Cerebral aneurysm, nonruptured Category: Medical Plan: She will follow up with Neurosurgery for surveillance imaging in 3 months as planned. We will reach out to [facility] Neurosurgery to ensure imaging gets scheduled, and the patient also agreed to call this week to follow up about imaging since she is due. (4) Hypertension: Code(s): I10 - Essential (primary) hypertension Category: Medical Qualifiers: Hypertension type: primary hypertension Qualified Code(s): I10 - Essential (primary) hypertension Plan: Continue amlodipine. (5) Low back pain: Code(s): M54.50 - Low back pain, unspecified Category: Medical Plan: Patient says she will schedule MRI once she completes physical therapy because she wants to have MRI of the cervical spine done at the same time. (6) Cervical radiculitis: Code(s): M54.12 - Radiculopathy, cervical region Category: Medical Plan: Patient we will proceed with physical therapy. She has already been referred. MRI is on hold until she completes 6 weeks of conservative management. (7) Myalgia: Code(s): M79.10 - Myalgia, unspecified site Category: Medical Plan: Given fatigue and patient concerns about pains in her shoulders and hips she will proceed with x-ray of the hips and vitamin-D, rheumatoid factor, sed rate, CRP, Lyme and TERE for evaluation of rheumatological disease. PMR can present with the symptoms. Discussed referral to Rheumatology once labs are resulted. She agrees. Advised to contact the office if symptoms worsen or she develops temporal headache or vision change. (8) Bilateral hip pain: Code(s): M25.551 - Pain in right hip; M25.552 - Pain in left hip Category: Medical Plan Tentative follow up appointment in 8 weeks. Orders: Orders Vitamin D 25-OH (D2 and D3) 12/23/24 M79.10 - Myalgia, unspecified site, R73.01 - Impaired fasting glucose Rheumatoid Factor 12/23/24 M.10 - Myalgia, unspecified site, R73.01 - Impaired fasting glucose Erythrocyte Sedimentation Rate 12/23/24 M79.10 - Myalgia, unspecified site, R73.01 - Impaired fasting glucose C Reactive Protein 12/23/24.10 - Myalgia, unspecified site, R73.01 - Impaired fasting glucose XR hips ALIZA min 3V 12/23/24 M25.551 - Pain in right hip, M25.552 - Pain in left hip Lyme IgG/IgM w/reflex to WB 12/23/24 M79.10 - Myalgia, unspecified site, R73.01 - Impaired fasting glucose Hemoglobin A1c 12/23/24 M79.10 - Myalgia, unspecified site, R73.01 - Impaired fasting glucose, R73.9 - Hyperglycemia, unspecified TERE Reflex Titer and Pattern 12/23/24.10 - Myalgia, unspecified site, R73.01 - Impaired fasting glucose
[2024-12-23 09:13] VITALS: BP 134/66; PULSE 69; RESP 14; TEMP 36.6; O2SAT 97; BMI 20.9
--- OUTSIDE RECORDS SUMMARY | 2024-12-23 09:59 | XMS_ITS | Encounter Summary ---
Author Organization [facility] and [facility] Address [address] [place] [address] Care Team Providers Care Production Quality Analyst Name Role Phone Mahi Gar Primary Care Provider [phone] Encounter Details Date Type Department Care Team (Late st Contact Info) Description 09/27/2019 Abstract [facility] [address] [address] Vasyl Billings MD [address] [place] [phone] Social History Tobacco Use Types Packs/Day Years [...] filedocumented in this encounter Care Teams Production Quality Analyst Relationship Specialty Start Date End Date Mahi Gar PA [address] [place] [phone] PCP - General Otolaryngology 03/03/18 documented as of this encounter
--- OUTSIDE RECORDS SUMMARY | 2024-12-23 09:59 | XMS_ITS | Encounter Summary ---
Author Organization [facility] and [facility] Address [address] [place] [address] Care Team Providers Care Boat Detailer Name Role Phone Mahi Gar Primary Care Provider Encounter Details Date Type Department Care Team (Late st Contact Info) Description 09/02/2018 Scanned Document [facility] [place] [address] [facility] [address] [place] [address] Vasyl Billings MD [address] [place] [address] Social History Tobacco Use Types [...] on filedocumented in this encounter Care Teams Boat Detailer Relationship Specialty Start Date End Date Mahi Gar PA [address] [place] [address] PCP - General Otolaryngology 03/03/18 documented as of this encounter
--- OUTSIDE RECORDS SUMMARY | 2024-12-23 09:59 | XMS_ITS | Encounter Summary ---
Author Organization [facility] and [facility] Address [address] [place] [address] Care Team Providers Care Abstract Searcher Name Role Phone Mahi Gar Primary Care Provider Encounter Details Date Type Department Care Team (Late st Contact Info) Description 09/08/2018 Scanned Document [facility] [place] [address] [facility] [address] [place] [address] Vasyl Billings MD [address] [place] [address] Social History Tobacco Use Types [...] on filedocumented in this encounter Care Teams Abstract Searcher Relationship Specialty Start Date End Date Mahi Gar PA [address] [place] [phone] PCP - General Otolaryngology 03/03/18 documented as of this encounter
--- OUTSIDE RECORDS SUMMARY | 2024-12-23 09:59 | XMS_ITS | Encounter Summary ---
Author Organization [facility] and [facility] Address [address] [place] [address] Care Team Providers Care Computer Networking Instructor Name Role Phone Mahi Gar Primary Care Provider [phone] Encounter Details Date Type Department Care Team (Late st Contact Info) Description 09/01/2018 Scanned Document [facility] [address] [facility] [address] [facility] [place] [address] Vasyl Billings MD [address] [place] [address] Social History Tobacco Use Types [...] on filedocumented in this encounter Care Teams Computer Networking Instructor Relationship Specialty Start Date End Date Mahi Gar PA [address] [place] [phone] PCP - General Otolaryngology 03/03/18 documented as of this encounter
--- OUTSIDE RECORDS SUMMARY | 2024-12-23 09:59 | XMS_ITS | Clinical Summary ---
Author Organization [address] Address [address] [place] [phone] Phone Care Team Providers Care Smoke And Flame Specialist Name Role Phone Mahi Gar Primary [...] Series) 10/29/2003 Osteoporosis screening (bone density) 2018 Influenza vaccine 10/29/2024 Covid-19 vaccine series (1 - 2023-25 season) 2024 RSV Immunization (1 - 1-dose 75+ series) 2028 Cervical cancer screening Discontinued Meningococcal B Vaccine Aged Out No l onger eligible based on patient's age to complete this topic Meningococcal Vaccine Aged Out No parrish elle eligible based on patient's age to complete this topic Care Teams Smoke And Flame Specialist Relationship Specialty Start Date End Date Mahi Gar PA [address] [place] [address] PCP - General Otolaryngology 03/03/18
--- OUTSIDE RECORDS SUMMARY | 2024-12-23 09:59 | XMS_ITS | Encounter Summary ---
Author Organization [facility] and [facility] Address [address] [place] [address] Care Team Providers Care Junior Business Analyst Name Role Phone Mahi Gar Primary Care Provider Encounter Details Date Type Department Care Team (Late st Contact Info) Description 09/01/2018 Scanned Document [facility] [address] [facility] [address] [facility] [place] [address] Vasyl Billings MD [address] [place] [phone] Social History Tobacco Use Types Packs/Day Years [...] on filedocumented in this encounter Care Teams Junior Business Analyst Relationship Specialty Start Date End Date Mahi Gar PA [address] [place] [address] PCP - General Otolaryngology 03/03/18 documented as of this encounter
--- OUTSIDE RECORDS SUMMARY | 2024-12-23 09:59 | XMS_ITS | Clinical Summary ---
Author Organization [employer] Address [address] [place] [address] [address] [place] [address] Care Team Providers Care Sales Solutions Associate Name Role Phone Unavailable Primary Care Provider [...] Vaccines (1 of 2) 10/29/2003 COVID-19 Vaccine (1 - 2023-2 5 season) 2024 Influenza Vaccine (#1) 2024 RSV Patients and [...]
--- OUTSIDE RECORDS SUMMARY | 2024-12-23 09:59 | XMS_ITS | Encounter Summary ---
Author Organization [facility] and [facility] Address [address] [place] [address] Care Team Providers Care Rural Carrier Associate Name Role Phone Mahi Gar Primary Care Provider Encounter Details Date Type Department Care Team (Late st Contact Info) Description 09/01/2018 Scanned Document [facility] [address] [facility] [address] [facility] [place] [address] Vasyl Billings MD [address] [place] [address] Social History Tobacco Use Types [...] on filedocumented in this encounter Care Teams Rural Carrier Associate Relationship Specialty Start Date End Date Mahi Gar PA [address] [place] [phone] PCP - General Otolaryngology 03/03/18 documented as of this encounter
--- OUTSIDE RECORDS SUMMARY | 2024-12-23 09:59 | XMS_ITS | Encounter Summary ---
Author Organization [employer] Address [address] [facility] [address] [place] [address] Care Team Providers Care Pizza Delivery Driver Name Role Phone Unavailable Primary Care Provider Unavailabl e Reason for Visit * Reason Onset Date Comments New Patient 01/30/2023 Encounter Details Date Type Department Care Team (Late st Contact Info) Description 01/30/2023 Telephone [facility] [address] [place] [address] Dion Jovel MD [address] [place] [address] New Patient Social History Tobacco Use Types [...] been transfer over to wait list for DISPLAY DEPARTMENT MANAGER. EFFECTIVE SINCE 01/30/2023 documented in this encounter Plan of Treatment Not on file documented as of this encounter Visit Diagnoses Not on filedocumented in this encounter
--- OUTSIDE RECORDS SUMMARY | 2024-12-23 09:59 | XMS_ITS | Encounter Summary ---
Author Organization [facility] and [facility] Address [address] [place] [address] Care Team Providers Care Welding Machine Operator Electroslag Name Role Phone Mahi Gar Primary Care Provider Encounter Details Date Type Department Care Team (Late st Contact Info) Description 09/01/2018 Scanned Document [facility] [address] [facility] [address] [facility] [place] [address] Vasyl Billings MD [address] [place] [address] Social History Tobacco Use Types [...] on filedocumented in this encounter Care Teams Welding Machine Operator Electroslag Relationship Specialty Start Date End Date Mahi Gar PA [address] [place] [phone] PCP - General Otolaryngology 03/03/18 documented as of this encounter
--- OUTSIDE RECORDS SUMMARY | 2024-12-23 09:59 | XMS_ITS | Encounter Summary ---
Author Organization [facility] and [facility] Address [address] [place] [address] Care Team Providers Care Bottom Hoop Driver Name Role Phone Mahi Gar Primary Care Provider Encounter Details Date Type Department Care Team (Late st Contact Info) Description 09/01/2018 Scanned Document [facility] [address] [facility] [address] [facility] [address] Vasyl Billings MD [address] [place] [address] Social History Tobacco Use Types [...] on filedocumented in this encounter Care Teams Bottom Hoop Driver Relationship Specialty Start Date End Date Mahi Gar PA [address] [place] [phone] PCP - General Otolaryngology 03/03/18 documented as of this encounter
--- OUTSIDE RECORDS SUMMARY | 2024-12-23 10:00 | XMS_ITS | Encounter Summary ---
Author Organization [facility] and [facility] Address [address] [place] [address] Care Team Providers Care Experience Planning Strategist Name Role Phone Mahi Gar Primary Care Provider [phone] Encounter Details Date Type Department Care Team (Late st Contact Info) Description 09/01/2018 Scanned Document [facility] [address] [facility] [address] [facility] [place] [address] Vasyl Billings MD [address] [place] [address] Social History Tobacco Use Types [...] on filedocumented in this encounter Care Teams Experience Planning Strategist Relationship Specialty Start Date End Date Mahi Gar PA [address] [place] [phone] PCP - General Otolaryngology 03/03/18 documented as of this encounter
== END 2024-12-23 10:09 | disposition home or self-care (01) ==
LOC: HO.HMCFM 09:07
PROVIDERS: PCP Physician Assistant Medical; Visit Provider Physician Assistant Medical
DX: R63.4 Abnormal weight loss (principal); J44.9 Chronic obstructive pulmonary disease, unspecified; I67.1 Cerebral aneurysm, nonruptured; I10 Essential (primary) hypertension; M54.50 Low back pain, unspecified; M54.12 Radiculopathy, cervical region; M79.10 Myalgia, unspecified site; M25.551 Pain in right hip; M25.552 Pain in left hip

== ENCOUNTER → 2024-12-23 09:06 | Outpatient (BNVA) | payer MEDICARE, SELFPAY | PROVIDERS: PCP Physician Assistant Medical; Visit Provider Physician Assistant Medical | DX: R63.4 Abnormal weight loss (principal); J44.9 Chronic obstructive pulmonary disease, unspecified; I67.1 Cerebral aneurysm, nonruptured; I10 Essential (primary) hypertension; M54.50 Low back pain, unspecified; M54.12 Radiculopathy, cervical region; M79.10 Myalgia, unspecified site; M25.551 Pain in right hip; M25.552 Pain in left hip; Z79.899 Other long term (current) drug therapy | CPT/HCPCS: 99212 ==

== ENCOUNTER 2024-12-24 15:12 | Outpatient (REF) | payer MEDICARE, SELFPAY ==
--- NOTE | ~2024-12-24 | XR_ITS ---
EXAMINATION: XR BILATERAL HIPS WITH AP PELVIS CLINICAL INFORMATION: M25.551 - Pain in right hip COMPARISON: None available. TECHNIQUE: AP view of the pelvis and 2 views of each hip were obtained. FINDINGS: No fracture, dislocation, or suspicious bone lesion. The pelvis is intact. Hip joints are normally aligned. There are mild degenerative changes in both hip joints. There is calcification of the labrum bilaterally. There is normal femoral head contour without evidence of AVN. There is normal acetabular coverage. The SI joints appear normal. There is no discrete soft tissue abnormality. XR/XR hips ALIZA min 3V IMPRESSION: 1. No acute bony abnormalities. 2. 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 Electronically signed by: Serafin Mendosa MD 12/24/2024 04:01 PM EDT
--- OUTSIDE RECORDS SUMMARY | 2024-12-24 15:43 | XMS_ITS | Encounter Summary ---
Author Organization [facility] and [facility] Address [address] [place] [address] Care Team Providers Care Solar Photovoltaic Designer Name Role Phone Mahi Gar Primary Care Provider Encounter Details Date Type Department Care Team (Late st Contact Info) Description 09/08/2018 Scanned Document [facility] [place] [address] [facility] [address] [place] [address] Vasyl Billings MD [address] [place] [address] Social History Tobacco Use Types [...] on filedocumented in this encounter Care Teams Solar Photovoltaic Designer Relationship Specialty Start Date End Date Mahi Gar PA [address] [place] [phone] PCP - General Otolaryngology 03/03/18 documented as of this encounter
--- OUTSIDE RECORDS SUMMARY | 2024-12-24 15:43 | XMS_ITS | Encounter Summary ---
Author Organization [facility] and [facility] Address [address] [place] [address] Care Team Providers Care Barrow Worker Name Role Phone Mahi Gar Primary Care Provider Encounter Details Date Type Department Care Team (Late st Contact Info) Description 09/02/2018 Scanned Document [facility] [place] [address] [facility] [address] [place] [address] Vasyl Billings MD [address] [place] [address] Social History Tobacco Use Types [...] on filedocumented in this encounter Care Teams Barrow Worker Relationship Specialty Start Date End Date Mahi Gar PA 1 [place] [address] PCP - General Otolaryngology 03/03/18 documented as of this encounter
--- OUTSIDE RECORDS SUMMARY | 2024-12-24 15:43 | XMS_ITS | Encounter Summary ---
Author Organization [facility] and [facility] Address [address] [place] [address] Care Team Providers Care Bacon Skinner Name Role Phone Mahi Gar Primary Care Provider [phone] Encounter Details Date Type Department Care Team (Late st Contact Info) Description 09/01/2018 Scanned Document [facility] 800 [facility] [place] [address] Vasyl Billings MD [address] [place] [address] Social History Tobacco Use Types [...] on filedocumented in this encounter Care Teams Bacon Skinner Relationship Specialty Start Date End Date Mahi Gar PA 1 [place] [phone] PCP - General Otolaryngology 03/03/18 documented as of this encounter
--- OUTSIDE RECORDS SUMMARY | 2024-12-24 15:43 | XMS_ITS | Clinical Summary ---
Author Organization [employer] Address [address] [place] [address] [address] [place] [address] Care Team Providers Care Medical Examiner Name Role Phone Unavailable Primary Care Provider [...]
--- OUTSIDE RECORDS SUMMARY | 2024-12-24 15:43 | XMS_ITS | Encounter Summary ---
Author Organization [facility] and [facility] Address [address] [place] [address] Care Team Providers Care Baby Formula Worker Name Role Phone Mahi Gar Primary Care Provider Encounter Details Date Type Department Care Team (Late st Contact Info) Description 09/01/2018 Scanned Document [facility] [address] [facility] 800 [facility] [place] [address] Vasyl Billings MD [address] [place] [address] Social History Tobacco Use Types [...] on filedocumented in this encounter Care Teams Baby Formula Worker Relationship Specialty Start Date End Date Mahi Gar PA 1 [place] [phone] PCP - General Otolaryngology 03/03/18 documented as of this encounter
--- OUTSIDE RECORDS SUMMARY | 2024-12-24 15:43 | XMS_ITS | Encounter Summary ---
Author Organization [facility] and [facility] Address [address] [place] [address] Care Team Providers Care Case Managers Name Role Phone Mahi Gar Primary Care Provider Encounter Details Date Type Department Care Team (Late st Contact Info) Description 09/27/2019 Abstract [facility] at [address] [address] Vasyl Billings MD [address] [place] [phone] Social History Tobacco Use Types Packs/Day Years [...] on filedocumented in this encounter Care Teams Case Managers Relationship Specialty Start Date End Date Mahi Gar PA 1 [place] [phone] PCP - General Otolaryngology 03/03/18 documented as of this encounter
--- OUTSIDE RECORDS SUMMARY | 2024-12-24 15:43 | XMS_ITS | Encounter Summary ---
Author Organization [facility] and [facility] Address [address] [place] [address] Care Team Providers Care Stone Dresser Name Role Phone Mahi Gar Primary Care Provider Encounter Details Date Type Department Care Team (Late st Contact Info) Description 09/01/2018 Scanned Document [facility] 800 [facility] 800 [facility] [place] [address] Vasyl Billings MD [address] [place] [phone] Social History Tobacco Use Types Packs/Day Years [...] on filedocumented in this encounter Care Teams Stone Dresser Relationship Specialty Start Date End Date Mahi Gar PA [address] [place] [address] PCP - General Otolaryngology 03/03/18 documented as of this encounter
--- OUTSIDE RECORDS SUMMARY | 2024-12-24 15:43 | XMS_ITS | Encounter Summary ---
Author Organization [facility] and [facility] Address [address] [place] [address] Care Team Providers Care Client Resource Specialist Name Role Phone Mahi Gar Primary Care Provider Encounter Details Date Type Department Care Team (Late st Contact Info) Description 09/01/2018 Scanned Document [facility] 800 [facility] 800 [facility] [place] [address] Vasyl Billings MD [address] [place] [address] Social History Tobacco Use Types [...] on filedocumented in this encounter Care Teams Client Resource Specialist Relationship Specialty Start Date End Date Mahi Gar PA 1 [place] [phone] PCP - General Otolaryngology 03/03/18 documented as of this encounter
--- OUTSIDE RECORDS SUMMARY | 2024-12-24 15:43 | XMS_ITS | Encounter Summary ---
Author Organization [facility] and [facility] Address [address] [place] [address] Care Team Providers Care Supervisor Corduroy Cutting Name Role Phone Mahi Gar Primary Care Provider [phone] Encounter Details Date Type Department Care Team (Late st Contact Info) Description 09/01/2018 Scanned Document [facility] [address] [facility] [address] [facility] [place] [address] Vasyl Billings MD [address] [place] [address] Social History Tobacco Use Types [...] filedocumented in this encounter Care Teams Supervisor Corduroy Cutting Relationship Specialty Start Date End Date Mahi Gar PA 1 [place] [phone] PCP - General Otolaryngology 03/03/18 documented as of this encounter
--- OUTSIDE RECORDS SUMMARY | 2024-12-24 15:43 | XMS_ITS | Encounter Summary ---
Author Organization [facility] and [facility] Address [address] [place] [address] Care Team Providers Care Field Engineer Name Role Phone Mahi Gar Primary Care Provider Encounter Details Date Type Department Care Team (Late st Contact Info) Description 09/01/2018 Scanned Document [facility] 800 [facility] 800 [facility] [place] [address] Vasyl Billings MD [address] [place] [address] Social History Tobacco Use Types [...] on filedocumented in this encounter Care Teams Field Engineer Relationship Specialty Start Date End Date Mahi Gar PA [address] [place] [phone] PCP - General Otolaryngology 03/03/18 documented as of this encounter
--- OUTSIDE RECORDS SUMMARY | 2024-12-24 15:43 | XMS_ITS | Clinical Summary ---
Author Organization [address] Address [address] [place] [phone] Phone Care Team Providers Care Quality Control Lead Name Role Phone Mahi Gar Primary Care [...] age to complete this topic Care Teams Quality Control Lead Relationship Specialty Start Date End Date Mahi Gar PA [address] [place] [address] PCP - General Otolaryngology 03/03/18
--- OUTSIDE RECORDS SUMMARY | 2024-12-24 15:43 | XMS_ITS | Encounter Summary ---
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 EFFECTIVE SINCE 01/30/2023 documented in this encounter Plan of Treatment Not on file documented as of this encounter Visit Diagnoses Not on filedocumented in this encounter
[2024-12-24 16:00] LABS: Total Hemoglobin (HGBA1C) 3367.9776 umol/L
[2024-12-25 05:38] LABS: Lyme Abs Screen <0.90 index
[2024-12-30 12:52] LABS: Anti Nuclear Antibody Pattern Nuclear, Nucleolar; Anti Nuclear Antibody Screen POSITIVE (NEGATIVE); Anti Nuclear Antibody Titer 1:80 titer
[2024-12-30 13:23] LABS: Vitamin D 25-OH, D2 <4 ng/mL; Vitamin D 25-OH, D3 32 ng/mL; Vitamin D 25-OH, Total 32 ng/mL (30-100)
== END 2024-12-24 15:13 | disposition home or self-care (01) ==
LOC: HO.XRAY 15:12
PROVIDERS: PCP Physician Assistant Medical; Visit Provider Physician Assistant Medical
DX: Z01.84 Encounter for antibody response examination (principal); M25.551 Pain in right hip; M25.552 Pain in left hip; R73.01 Impaired fasting glucose; M79.10 Myalgia, unspecified site; R73.9 Hyperglycemia, unspecified
CPT/HCPCS: 36415; 73522; 82306; 83036; 85652; 86038; 86039; 86140; 86431; 86617; 86618

== ENCOUNTER → 2024-12-24 15:28 | Outpatient (BNV) | payer MEDICARE, SELFPAY | PROVIDERS: PCP Physician Assistant Medical; Visit Provider Radiology Diagnostic Radiology | DX: M16.0 Bilateral primary osteoarthritis of hip (principal) | CPT/HCPCS: 73522 ==

== ENCOUNTER 2025-02-11 | Outpatient (REF) | payer MEDICARE, SELFPAY ==
--- OUTSIDE RECORDS SUMMARY | 2025-02-22 13:06 | XMS_ITS | Clinical Summary ---
Author Organization [employer] Address [address] [place] [address] [address] [place] [address] Care Team Providers Care Cage Shift Manager Name Role Phone Unavailable Primary Care Provider [...] of 2) 10/29/2003 COVID-19 Vaccine ( - 2024-2 6 season) 2024 Influenza Vaccine (#1) 2024 RSV [...]
--- OUTSIDE RECORDS SUMMARY | 2025-02-22 13:06 | XMS_ITS | Encounter Summary ---
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 EFFECTIVE SINCE 01/30/2023 documented in this encounter Plan of Treatment Not on file documented as of this encounter Visit Diagnoses Not on filedocumented in this encounter
== END 2025-02-11 00:01 | disposition home or self-care (01) ==
LOC: CF
PROVIDERS: Visit Provider Physician Assistant Medical
DX: F17.210 Nicotine dependence, cigarettes, uncomplicated (principal); Z71.6 Tobacco abuse counseling
CPT/HCPCS: G0296

== ENCOUNTER 2025-02-11 11:02 | Outpatient (AMB) | payer MEDICARE, SELFPAY ==
--- NOTE | 2025-02-11 07:57 | A.OFFVIS_ITS ---
Intake Visit Reasons: Current Smoker Allergies Penicillins (PENICILLINS) Allergy (Severe, Verified 12/23/24 09:11) THROAT SWELLING penicillin V Allergy (Unknown, Verified 12/23/24 09:11) throat swelling HPI HPI Current Smoker: Details: Initial telehealth visit via phone for this 69yo smoker with a 25PYH. Patient started smoking at age 18 for 51 years at 1/2ppd. Now at 1/4ppd . Denies marijuana use. Denies second hand smoke exposure. Denies exposure to chemicals or substances like asbestos. . Denies known family history of lung cancer. Denies personal history of cancers. Denies chest CT in last year. . Denies recent travel outside the [place]. Denies recent respiratory illness or recent hospitalization for respiratory issues. History testing positive for COVID. Admits receiving COVID Vaccine. . Denies fever, chills, new/worsening cough, hemoptysis, hoarseness or dysphagia. Denies significant chest pain, significant dyspnea or unintentional weight loss. Patient Lung Cancer Screening Questionnaire reviewed with patient by provider. . Shared Decision Making Completed. Patient meets criteria. Discussed in detail with patient, the risk vs benefit of LDCT screening. Patient consents to proceed with scan. Discussed smoking cessation. [facility] Medical History (Updated 02/11/25 @ 10:59 by Connie Walton PA-C) Prediabetes Bilateral shoulder pain Positive TERE (antinuclear antibody) Myalgia Bilateral hip pain Postmenopausal Lichen sclerosus of vulva (~2014) Nicotine dependence, cigarettes, uncomplicated Hyperlipidemia Lumbosacral radiculitis Abdominal discomfort Weight loss Right knee pain Low back pain Cervical radiculitis Brain aneurysm Hypertension COPD (chronic obstructive pulmonary disease) Surgical History (Updated 12/20/24 @ 10:46 by Connie Walton PA-C) History of biopsy S/P coil embolization of cerebral aneurysm Hx of coil occlusion of patent ductus arteriosus Family History Father Hypertension Mother Hypertension Diabetes Cardiovascular disease Breast cancer Alcoholism Social History (Updated 02/11/25 @ 10:59 by Connie Walton PA-C) Household Members: None Both parents involved: No Caregiver staying overnight: No Housing: Apartment Are you a primary overnight caregiver to a significant other at home: No Do you presently have visiting nurse or other home services: No 75 years or older and lives alone: No Alcohol intake: current Alcohol intake frequency: a few times a week Alcohol type: beer and wine Patient Tobacco Use Status: Current everyday Tobacco user Tobacco use type: Cigarette Cigarettes Per Day: 4 Years Smoked: (onset 18yo, 1/2ppd x 51yrs, now 1/4ppd, 25pyh) e-Cigarette/Vaping Use: Never Used Second Hand Smoke Exposure: No Substance Use Type: Marijuana service: No Current occupational status: retired Cognitive needs: No Hearing needs: No Vision needs: No Telehealth Telehealth Telehealth Platform: Telephone Location of provider rendering services: practice address Location of patient: address on file Patient Identification confirmed using: Name, : Yes Telehealth method: voice only Patient verbally consented to treatment: Yes Patient verbally consented to billing insurance company: Yes Patient informed of any privacy concerns related to visit: Yes Minutes spent on Phone/Video with Pt.: 15 Assessment & Plan Assessment & Plan (1) Nicotine dependence, cigarettes, uncomplicated: Comment: (onset 18yo, 1/2ppd x 51yrs, now 1/4ppd, 25pyh) Code(s): F17.210 - Nicotine dependence, cigarettes, uncomplicated Category: Medical Plan: - Telehealth SDM visit completed today via phone. - Patient meets criteria for LDCT for lung cancer screening purposes and is asymptomatic. - Smoking cessation counseling offered. Patients can always call [phone]. - Will arrange for a LDCT scan of the chest for screening purposes at [facility]. - Risks, benefits, and alternatives were discussed in detail and the patient agrees to proceed. - Risks discussed include but are not limited to: radiation exposure, anxiety during testing and while awaiting results, false negatives, false positives and possibility of additional intervention such as further imaging or surgical procedures for benign disease. - Benefits are obviously detection of lung cancer at an early stage which can lead to improved outcomes. - Discussed the importance of screening program compliance with adherence to yearly LDCT scan as scheduled - or sooner interval scans for personalized screening regimen. - Discussed follow up plan. Our office will send a letter discussing results and if needed set up phone call and office visit based on CT findings. - Patient educated on results categorization and the management decisions for suspicious findings potentially found on the screening LDCT scan. Any patient with a Lung RADS score of 3 or 4 will be reviewed by a multidisciplinary team at [facility] to form a plan of action in regards to scan findings. - If further work up is warranted for a suspicious lung finding this will be followed by the Lung Cancer Screening program in conjunction with the Thoracic Surgery Department at [facility]. - A copy of the office note and LDCT will be sent to the patient's PCP - as well as documentation on any associated further plans of care. - Incidental findings on LDCT are the PCP's responsibility. These findings are indicated with an S finding on the LDCT Assessment. A note discussing the findings will be sent to the PCP who is then responsible for further management. - All questions answered.? Coding Level of Care Code Lung Cancer Screening G0296 Diagnoses Nicotine dependence, cigarettes, uncomplicated F17.210
== END 2025-02-11 13:07 | disposition home or self-care (01) ==
LOC: HO.HPS 11:02
PROVIDERS: PCP Physician Assistant Medical; Referring Provider Internal Medicine; Visit Provider Physician Assistant Medical
DX: F17.210 Nicotine dependence, cigarettes, uncomplicated (principal)
CPT/HCPCS: G0296

== ENCOUNTER 2025-03-08 11:07 | Outpatient (AMB) | payer MEDICARE, SELFPAY ==
--- NOTE | 2025-03-08 11:26 | MHC.OFFVIS ---
Vital Signs 03/08/25 11:27 Height 5 ft 7.2 in Weight 136 lb BMI 21.2 Intake Visit Reasons: copd Intake Note: pt is here as a follow up and states she is feeling good, wixela is working great only minimal use of albuterol. Cigarette Package Examiner Required: No Yarn Texturing Machine Operator: Yarn Texturing Machine Operator offered & declined Allergies Penicillins (PENICILLINS) Allergy (Severe, Verified 03/08/25 11:51) THROAT SWELLING penicillin V Allergy (Unknown, Verified 03/08/25 11:51) throat swelling Medication List - Last Reconciled 03/08/25 by Emmanuel Plascencia MD albuterol sulfate 90 mcg/actuation 2 puffs inhalation Q6H PRN amlodipine 5 mg PO DAILY barium sulfate 2.1%(w/v),2.0%(w/w) Follow instructions per radiology. diclofenac sodium 1% (Voltaren Arthritis Pain) apply 4 g to each affected area up to 4 times daily; maximum dose per joint: 16 g/day; maximum total body dose (all combined joints): 32 g/day fluticasone propion-salmeterol 100-50 mcg/dose (Advair Diskus) 1 inh inhalation BID 30 days Do you need a note to return to daycare/school/sports/work: No HPI HPI copd: Details: 69 years old female with mild COPD, comes for follow-up after 6 months. Since her last visit she has been using Wixela 100-50 1 inhalation, only once a day and has been feeling much better. She has only occasional wheeze or cough. She can walk around without much shortness of breath. FAR SMOKING IS CONCERNED she has cut down to 4 cigarettes a day, plans to quit in the next few months. She follows an exercise program on [employer] and joints that program almost daily, [facility] Medical History Prediabetes Bilateral shoulder pain Positive TERE (antinuclear antibody) Myalgia Bilateral hip pain Postmenopausal Lichen sclerosus of vulva (~2014) Nicotine dependence, cigarettes, uncomplicated Hyperlipidemia Lumbosacral radiculitis Abdominal discomfort Weight loss Right knee pain Low back pain Cervical radiculitis Brain aneurysm Hypertension COPD (chronic obstructive pulmonary disease) Surgical History History of biopsy S/P coil embolization of cerebral aneurysm Hx of coil occlusion of patent ductus arteriosus Family History Father Hypertension Mother Hypertension Diabetes Cardiovascular disease Breast cancer Alcoholism Social History Household Members: None Both parents involved: No Caregiver staying overnight: No Housing: Apartment Are you a primary acute care nurse to a significant other at home: No Do you presently have visiting nurse or other home services: No 75 years or older and lives alone: No Alcohol intake: former Comment: pt quit drinking beginning of January 2025 per pt Patient Tobacco Use Status: Current everyday Tobacco user Tobacco use type: Cigarette Cigarettes Per Day: 4 Years Smoked: (onset 18yo, 1/2ppd x 51yrs, now 1/4ppd, 25pyh) e-Cigarette/Vaping Use: Never Used Second Hand Smoke Exposure: No Substance Use Type: Marijuana service: No Current occupational status: retired Cognitive needs: No Hearing needs: No Vision needs: No Review of Systems Const All systems reviewed & are unremarkable except as noted in HPI and below Reports headache(s) (OFF AND ON) ENT Reports no additional complaints, Reports headache(s) (OFF AND ON) and Reports neck pain Card Denies chest pain, Denies irregular heart rhythm and Denies leg edema Resp Reports as per HPI GI Reports no additional complaints Reports no additional complaints Musc Reports back pain and Reports neck pain Skin/Breast Reports system reviewed and no additional complaints, except as documented Neuro Reports headache(s) (OFF AND ON) Psych Reports no additional complaints Endo Reports no additional complaints Leonardo/Lymph Reports no additional complaints Aller/Immun Reports no additional complaints Physical Exam Vital Signs: BMI result Body Mass Index 21.2 Const General: healthy appearing, comfortable, no acute distress, alert and awake Orientation/consciousness: patient oriented x3 HEENT Head: Yes normal to inspection General nose exam: No nasal polyps present and No nasal discharge present Face and sinus: Yes sinuses nontender Mouth: oropharynx normal Throat: Yes posterior oropharynx normal Eyes General: appearance normal, both eyes and all related structures Neck Neck: Yes normal visual inspection, Yes no lymphadenopathy, Yes trachea midline and Yes no JVD Thyroid: Thyroid normal Chest Chest palpation & inspection: normal inspection of the chest, normal palpation of entire chest wall and no tenderness Resp Other: PERCUSSION NOTE IS RESONANT, BREATH SOUNDS ARE EQUAL ON BOTH SIDES. THERE ARE A NO WHEEZES OR RHONCHI. NO CREPITATIONS. Cardio Palpation: normal PMI Rate: regular rate Rhythm: regular rhythm Heart sounds: no gallops and no murmurs Peripheral pulses: Peripheral pulses 2+ throughout GI Palpation (GI): Soft to palpation, Tenderness to palpation present (GI), No hepatosplenomegaly present and Palpable mass present Auscultation: normal bowel sounds Back/Spine/Pelvis Thoracic/Lumbar Spine: thoracic and lumbar spine normal to inspection Skin General skin exam: no rashes or lesions noted Neuro General: patient oriented x3 and no focal motor deficits Cranial nerves: Yes CN's II-XII intact bilaterally Extrem General: Yes normal to inspection, Yes no clubbing, cyanosis or edema and Yes no calf tenderness Psych Speech and movement: Normal speech and movement present Assessment & Plan Assessment & Plan (1) COPD (chronic obstructive pulmonary disease): Comment: PFT shows mild Obstructive Airway disorder, symptoms mild- cough/SOB on exertion Symptomatically much improved with the use of Wixela 100-50 , she is using only once a day. The use of albuterol is cut down to minimal, only once or twice a week. Code(s): J44.9 - Chronic obstructive pulmonary disease, unspecified Category: Medical Plan: We had a good talk about the COPD again. Advised to continue using Wixela 100-51 inhalation daily but increase to b.i.d. if symptoms get any worse. (2) Nicotine dependence, cigarettes, uncomplicated: Comment: (onset 18yo, 1/2ppd x 49yrs, now 1/4ppd, 25pyh). She is down to 4 cigarettes a day, and using the same cigarette a few times. Code(s): F17.210 - Nicotine dependence, cigarettes, uncomplicated Category: Medical Plan: Had a good talk about quitting the smoking completely. . She understands very well And she seems to be motivated to finally quit smoking in the next few months. Coding Level of Care Code Est Pt Level 3 (09568) Diagnoses COPD (chronic obstructive pulmonary disease) J44.9 Nicotine dependence, cigarettes, uncomplicated F17.210
[2025-03-08 11:27] VITALS: BMI 21.2
== END 2025-03-08 11:51 | disposition home or self-care (01) ==
LOC: HO.HPS 11:08
PROVIDERS: PCP Physician Assistant Medical; Visit Provider Internal Medicine
DX: J44.9 Chronic obstructive pulmonary disease, unspecified (principal); F17.210 Nicotine dependence, cigarettes, uncomplicated
CPT/HCPCS: 99213

== ENCOUNTER → 2025-03-08 11:07 | Outpatient (BNVA) | payer MEDICARE, SELFPAY | PROVIDERS: PCP Physician Assistant Medical; Visit Provider Internal Medicine | DX: J44.9 Chronic obstructive pulmonary disease, unspecified (principal); F17.210 Nicotine dependence, cigarettes, uncomplicated; Z79.899 Other long term (current) drug therapy | CPT/HCPCS: 99212 ==